=== PATIENT | female | born 1950 | race Caucasian/White ===

== ENCOUNTER 2017-02-23 18:46 | Inpatient (IN) | payer MEDICARE, MEDICAID ==
[2017-02-23] MEDS ORDERED: Levofloxacin 750 MG IVPREMIX(* 750 MG/150 ML BAG IVPB ONE (19:01)
[2017-02-23 19:29] LABS: Hematocrit 35 % (35-47); Hemoglobin 11.3 g/dl (12.0-16.0); Mean Corpuscular HGB Conc 33 g/dl (31-36); Mean Corpuscular Hemoglobin 30 pg (27-31); Mean Corpuscular Volume 90 fL (80-97); Mean Platelet Volume 9 um3 (7.4-10.4); Red Blood Count 3.82 10^6/ul (4.0-5.4); Red Cell Distribution Width 15 % (10.5-15); White Blood Count 7.4 10^3/ul (3.5-10.8)
[2017-02-23] MEDS: NS 0.9% 1000 ML* 3,000 ML IV ONE ×3 (19:39→20:52)
[2017-02-23 19:45] LABS: Albumin 3.4 g/dL (3.2-5.2); BUN/Creatinine Ratio 15.8 (8-20); C Reactive Protein 44.51 mg/L (< 5.00); Calcium 9.5 mg/dL (8.6-10.3); EGFR Non-African American 32.6 (>60); Globulin 2.9 g/dL (2-4); Potassium 3.8 mmol/L (3.5-5.0); Total Bilirubin 0.3 mg/dL (0.2-1.0); Total Protein 6.3 g/dL (6.4-8.9)
[2017-02-23 19:46] LABS: Troponin I 0.02 ng/mL (<0.04)
--- NOTE | 2017-02-23 20:06 | RAD ---
Indication: Fever, cough. Single frontal view of the chest performed at 1928 hours was reviewed. Comparison is made with previous exam dated July 17, 2016. No mediastinal shift is noted. Heart is of normal size and configuration. Lung whittaker appear clear. IMPRESSION: NO ACTIVE CARDIOPULMONARY DISEASE IS NOTED.
--- NOTE | 2017-02-23 20:10 | ED ---
Dolores Saravia Salem, scribed for Boris Pereira MD on 02/23/17 at 1928 . Neurological HPI - HPI Summary HPI Summary: Patient is a 66 y/o female who presents to the ED per EMS s/p CVA [employer]. She has a hx of strokes and of left-sided weakness. She was brought in from [facility] and they report she has been lethargic today. Pt is a level 5 Caveat. - History of Current Complaint Chief Complaint: EDGeneral Stated Complaint: AMS Time Seen by Provider: 02/23/17 19:17 Hx Obtained From: EMS Hx From Patient Unobtainable Due To: Other - Level 5 Caveat. Onset/Duration: Sudden Onset, Started hours ago Timing: Intermittent Episodes Lasting: Onset Severity: Moderate Current Severity: Moderate Seizure Severity: Moderate Pain Intensity: 0 Pain Scale Used: 0-10 Numeric Aggravating: Nothing Alleviating: Nothing - Allergy/Home Medications Allergies/Adverse Reactions: Allergies Allergy/AdvReac Type Severity Reaction Status Date / Time Metformin Allergy Unknown Verified 11/21/15 05:14 Reaction Details Oxycodone Allergy Unknown Verified 11/21/15 05:14 Reaction Details Propoxyphene Allergy Unknown Verified 11/21/15 05:14 Reaction Details Home Medications: Home Medications Cholecalciferol [Vitamin D3] 2,000 unit PO DAILY 02/23/17 [History Confirmed ] Pantoprazole TAB (NF) [Protonix TAB (NF)] 20 mg PO DAILY 02/23/17 [History Confirmed 02/23/17] PMH/Surg Hx/FS Hx/Imm Hx Endocrine/Hematology History: Reports: Hx Diabetes Cardiovascular History: Reports: Hx Hypercholesterolemia, Hx Hypertension, Other Cardiovascular Problems/Disorders - TIA/IDDM/HYPERCHOLESTEROLEMIA GI History: Reports: Other GI Disorders - gastric ulcer Musculoskeletal History: Denies: Hx Arthritis, Hx Osteoporosis Sensory History: Reports: Hx Contacts or Glasses Opthamlomology History: Reports: Hx Contacts or Glasses Neurological History: Reports: Hx CVA, Hx Transient Ischemic Attacks (TIA) Psychiatric History: Reports: Other Psychiatric Issues/Disorders - personality disorder, not otherwise specified Infectious Disease History: Unable to Obtain/Confirm Infectious Disease History: Denies: Traveled Outside the [place] in Last 30 Days - Family History Known Family History: Positive: Other - lung cancer - father, cva - mother - Social History Alcohol Use: None Hx Substance Use: No Substance Use Type: Reports: None Smoking Status (MU): Unknown if Ever Smoked Review of Systems Negative: Fever Positive: Other - Low blood pressure upon arrival. All Other Systems Reviewed And Are Negative: Yes - Comments Additional Review of Systems Comments: Level 5 Caveat. Physical Exam - Summary Physical Exam Summary: Level 5 Caveat. Triage Information Reviewed: Yes Vital Signs On Initial Exam: Initial Vitals BP 76/33 02/23/17 18:57 Vital Signs Reviewed: Yes Appearance: Positive: No Pain Distress, Thin - weak appeareing Skin: Positive: Skin Color Reflects Adequate Perfusion Head/Face: Positive: Normal Head/Face Inspection Eyes: Positive: OBDULIO ENT: Positive: Hearing grossly normal Neck: Positive: Supple Respiratory/Lung Sounds: Positive: Breath Sounds Present Cardiovascular: Positive: RRR Abdomen Description: Positive: Nontender, Soft Bowel Sounds: Positive: Present Musculoskeletal: Positive: Strength/ROM Intact Neurological: Positive: Sensory/Motor Intact Psychiatric: Positive: Affect/Mood Appropriate Diagnostics - Vital Signs Vital Signs Temp Pulse Resp BP Pulse Ox 02/23/17 19:18 83 21 99/58 98 02/23/17 19:06 78/35 02/23/17 19:05 97.5 F 83 22 78/35 98 02/23/17 19:00 23 79/36 02/23/17 18:57 76/33 - Laboratory Lab Results: Lab Results 02/23/17 Range/Units 19:02 POC Glucose (mg/dL) 62 L (74-106) mg/dL Result Diagrams: 02/23/17 19:15 02/23/17 19:15 Lab Statement: Any lab studies that have been ordered have been reviewed, and results considered in the medical decision making process. - Radiology CXR Radiology Interpretation Completed By: Radiologist - CXR IMPRESSION: NO ACTIVE CARDIOPULMONARY DISEASE IS NOTED. - EKG 2008 EKG Interpretation: Sinus rhythm @ 82 bpm. Course/Dx - Diagnoses Provider Diagnoses: Weakness - Physician Notifications Discussed Care of Patient With: Dr. Fuller (hospitalist) @ 1935. Will admit. Discharge - Discharge Plan Condition: Fair Disposition: ADMITTED TO [facility] documentation as recorded by the Dolores mittal Salem accurately reflects the service I personally performed and the decisions made by me, Boris Pereira MD.
[2017-02-23] MEDS ORDERED: Phenylephrine IV* 40 MCG/ML 10 ML SYRINGE ONE (20:17)
[2017-02-23] MEDS ORDERED: Phenylephrine INJ* 50 MG in NS 0.9% 250 ML* 245 ML IV ONE (20:21)
--- NOTE | 2017-02-23 20:23 | HP ---
H&P (Free Text) History and Physical: PCP: Michael Jones MD; [facility], [place] Date/Time of Evaluation: 02/23/20172014 CC: fever HPI: Mrs Cunningham is a 66YO obese female resident of [facility], [place] HX CVA with sequelae of L hemiplegia who was sent in for evaluation of fever 101F, AMS, & hypotension. Mrs Cunningham herself is quite lethargic and unable to provide much in the way of history. She does states she has been coughing up "a lot of sh!t" today, but cannot recall how she felt yesterday. She cannot recall any associated symptoms or other complaints at this time. In fact, she does not open her eyes through the entire exam and resists when attempting to manually examine her pupils. Vitals are notable for hypotension in the 70/30s without tachycardia and tachypnea in the low 20s, afebrile here. CBC is baseline. Chemistry reveals an KRISS with BUN/cre 25/1.5 (baseline 12/1.0), glucose of 61, & CRP of 44. CXR and ECG are benign. PMedHx CVA w/ L hemiplegia & dysphagia DM2 requiring insulin HTN HLD GERD personality disorder NOS Ambulatory Orders Acetaminophen TAB* [Tylenol TAB*] 1,000 mg PO BID PRN 11/21/15 Fenofibrate [Tricor] 145 mg PO DAILY 11/21/15 Gabapentin CAP(*) [Neurontin 100 mg CAP(*)] 200 mg PO BID 11/21/15 Insulin LISPRO* [HumaLOG*] 8 units SUBCUT AC 11/21/15 Magnesium Oxide TAB* [MagOx 400 TAB*] 1 tab PO DAILY 11/21/15 Metoclopramide TAB* [Reglan TAB*] 5 mg PO AC 11/21/15 Senna TAB* [Senokot TAB*] 2 tab PO BID #60 tab 11/27/15 Insulin GLARGINE(*) [Lantus(*)] 25 units SUBCUT 199907/17/16 Sucralfate TAB* [Carafate*] 1 gm PO BID 07/17/16 Cholecalciferol [Vitamin D3] 2,000 unit PO DAILY 02/23/17 Pantoprazole TAB (NF) [Protonix TAB (NF)] 20 mg PO DAILY 02/23/17 Allergies Metformin Allergy (Verified 11/21/15 05:14) Unknown Reaction Details Oxycodone Allergy (Verified 11/21/15 05:14) Unknown Reaction Details Propoxyphene Allergy (Verified 11/21/15 05:14) Unknown Reaction Details SocHx: resides at [facility], [place], otherwise unobtainable FamHx: unobtainable ROS: as above, otherwise reviewed and all were negative Constitutional: NAD, normally developed, obese white female vitals: Vital Signs Temp 36.3 C 02/23/17 19:23 Pulse 81 02/23/17 20:00 Resp 22 02/23/17 20:00 BP 76/36 02/23/17 20:00 Pulse Ox 99 02/23/17 20:00 Intake & Output 02/22/17 02/23/17 02/23/17 23:59 11:59 23:59 Weight 81.647 kg HEENM: atraumatic; sclera/conjunctiva: non-icteric/clear; hearing: clinically intact; oropharynx: clear, mucosa moist Neck: soft tissue: non-tender,no nuchal rigidity; thyroid: normal Pulmonary: clear to auscultation bilaterally, good aeration, no accessory muscle use CV: RR/RR, normal S1S2, no carotid bruit, no jugular venous distention, 2+ B DP/ PT, no edema Abdominal: soft, non-distended, non-tender, no rebound/guarding/rigidity, normoactive bowel sounds, no hepatosplenomegaly or masses, no costovertebral angle tenderness Musculoskeletal: general: grossly intact; gait: unable to ambulate 2nd acuity Integumental: normal appearance and texture of exposed skin Psychiatric orientation: somnolent, oriented to person only affect: somnolent mood: mostly cooperative, resists eye exam eye contact: absent content: minimal, limited to 3 words or less, doesn't answer open-ended questions memory: impaired responses: arouses with voice, does not open eyes insight: poor Testing: Lab Results 02/23/17 02/23/17 02/23/17 Range/Units 19:02 19:15 19:15 WBC 7.4 (3.5-10.8) 10^3/ul RBC 3.82 L (4.0-5.4) 10^6/ul Hgb 11.3 L (12.0-16.0) g/dl Hct 35 (35-47) % MCV 90 (80-97) fL MCH 30 (27-31) pg MCHC 33 (31-36) g/dl RDW 15 (10.5-15) % Plt Count 240 (150-450) 10^3/ul MPV 9 (7.4-10.4) um3 Neut % (Auto) 72.8 (38-83) % Lymph % (Auto) 15.8 L (25-47) % Kidder % (Auto) 10.1 H (1-9) % Eos % (Auto) 0.8 (0-6) % Baso % (Auto) 0.5 (0-2) % Absolute Neuts (auto) 5.4 (1.5-7.7) 10^3/ul Absolute Lymphs (auto) 1.2 (1.0-4.8) 10^3/ul Absolute Monos (auto) 0.7 (0-0.8) 10^3/ul Absolute Eos (auto) 0.1 (0-0.6) 10^3/ul Absolute Basos (auto) 0 (0-0.2) 10^3/ul Absolute Nucleated RBC 0 10^3/ul Nucleated RBC % 0 ESR Pending INR (Anticoag Therapy) (0.89-1.11) APTT (26.0-36.3) seconds Sodium 138 (133-145) mmol/L Potassium 3.8 (3.5-5.0) mmol/L Chloride 107 (101-111) mmol/L Carbon Dioxide 27 (22-32) mmol/L Anion Gap 4 (2-11) mmol/L BUN 25 H (6-24) mg/dL Creatinine 1.58 H (0.51-0.95) mg/dL Est GFR ( Amer) 42.0 (>60) Est GFR (Non-Af Amer) 32.6 (>60) BUN/Creatinine Ratio 15.8 (8-20) Glucose 61 L (70-100) mg/dL POC Glucose (mg/dL) 62 L (74-106) mg/dL Lactic Acid (0.5-2.0) mmol/L Calcium 9.5 (8.6-10.3) mg/dL Total Bilirubin 0.30 (0.2-1.0) mg/dL AST 13 (13-39) U/L ALT 8 (7-52) U/L Alkaline Phosphatase 25 L (34-104) U/L Total Creatine Kinase 41 (10-223) U/L Troponin I 0.02 (<0.04) ng/mL C-Reactive Protein 44.51 H (< 5.00) mg/L Total Protein 6.3 L (6.4-8.9) g/dL Albumin 3.4 (3.2-5.2) g/dL Globulin 2.9 (2-4) g/dL Albumin/Globulin Ratio 1.2 (1-3) 02/23/17 02/23/17 Range/Units 19:15 20:00 WBC (3.5-10.8) 10^3/ul RBC (4.0-5.4) 10^6/ul Hgb (12.0-16.0) g/dl Hct (35-47) % MCV (80-97) fL MCH (27-31) pg MCHC (31-36) g/dl RDW (10.5-15) % Plt Count (150-450) 10^3/ul MPV (7.4-10.4) um3 Neut % (Auto) (38-83) % Lymph % (Auto) (25-47) % Kid[place] % (Auto) (1-9) % Eos % (Auto) (0-6) % Baso % (Auto) (0-2) % Absolute Neuts (auto) (1.5-7.7) 10^3/ul Absolute Lymphs (auto) (1.0-4.8) 10^3/ul Absolute Monos (auto) (0-0.8) 10^3/ul Absolute Eos (auto) (0-0.6) 10^3/ul Absolute Basos (auto) (0-0.2) 10^3/ul Absolute Nucleated RBC 10^3/ul Nucleated RBC % ESR INR (Anticoag Therapy) 1.04 (0.89-1.11) APTT 33.5 (26.0-36.3) seconds Sodium (133-145) mmol/L Potassium (3.5-5.0) mmol/L Chloride (101-111) mmol/L Carbon Dioxide (22-32) mmol/L Anion Gap (2-11) mmol/L BUN (6-24) mg/dL Creatinine (0.51-0.95) mg/dL Est GFR ( Amer) (>60) Est GFR (Non-Af Amer) (>60) BUN/Creatinine Ratio (8-20) Glucose (70-100) mg/dL POC Glucose (mg/dL) (74-106) mg/dL Lactic Acid 1.2 (0.5-2.0) mmol/L Calcium (8.6-10.3) mg/dL Total Bilirubin (0.2-1.0) mg/dL AST (13-39) U/L ALT (7-52) U/L Alkaline Phosphatase (34-104) U/L Total Creatine Kinase (10-223) U/L Troponin I (<0.04) ng/mL C-Reactive Protein (< 5.00) mg/L Total Protein (6.4-8.9) g/dL Albumin (3.2-5.2) g/dL Globulin (2-4) g/dL Albumin/Globulin Ratio (1-3) ECG, personally reviewed: NSR rate 82, no ischemia CXR, personally reviewed: IMPRESSION: NO ACTIVE CARDIOPULMONARY DISEASE IS NOTED. Impression: 66F resident of [facility], [place] HX CVA/L hemiplegia/dysphagia, DM, & psychiatric disorder presenting with fever, lethargy, & hypotension consistent with septic shock of uncertain source DIAGNOSIS & PLAN Primary septic shock : ICU monitoring : supplemental oxygen : IVFs : pressors to maintain MAP >60 : IV levofloxacin : guaifenesin : blood, urine, & sputum CXs : urine Legionella & S pneumo antigens : check bedside swallow : supportive care KRISS : IVFs, trend renal FX : nava to gravity for accurate monitoring of renal function in critically-ill patient Secondary DM : continue current glargine QD and lispro AC, add correctional coverage : consistent carb diet : check A1c HX CVA w/ L-sided hemiplegia & dysphagia : no acute issues : MOLST states no feeding tube, therefore unless this changes no swallow eval indicated HTN : currently hypotensive, hold anti-hypertensives for now HLD, mixed : hold fenofibrate for now GERD : continue pantoprazole Admission Rational: inpatient ICU for critically ill patient requiring pressors , IV ABX, IVFs; inappropriate for outpatient setting DVTp: heparin SQ & SCDs Code Status: DNR/I, no feeding tube, trial of IVFs, use ABX HCP: Lay Sneed [phone]
[2017-02-23 20:50] LABS: Urine Bacteria 3+ (Absent); Urine Bilirubin Negative (Negative); Urine Glucose Negative (Negative); Urine Nitrite Negative (Negative)
[2017-02-23] MEDS ORDERED: Melatonin (NF) 3 MG TAB PO PRN (20:52)
[2017-02-23] MEDS ORDERED: Acetaminophen TAB* 325 MG PO PRN (20:52)
[2017-02-23] MEDS ORDERED: Albuterol 2.5 MG/3 ML NEB.SOL* (0.083%) INH PRN (20:52)
[2017-02-23] MEDS ORDERED: Ondansetron INJ* 2 MG/ML VIAL IV PRN (20:53)
[2017-02-23] MEDS ORDERED: Gabapentin CAP(*) 100 MG PO SCH (21:00)
[2017-02-23] MEDS ORDERED: Senna TAB PO SCH (21:00)
[2017-02-23] MEDS ORDERED: Docusate CAP* 100 MG PO SCH (21:00)
[2017-02-23] MEDS ORDERED: Sucralfate TAB* 1 GM PO SCH (21:00)
[2017-02-23] MEDS ORDERED: guaiFENesin ER TAB 600 MG PO SCH (21:00)
[2017-02-23 21:49] LABS: Erythrocyte Sed Rate 45 mm/Hr (0-40)
[2017-02-23] MEDS: Insulin LISPRO* 1 UNITS UNIT SUBCUT SCH (22:08)
[2017-02-24] MEDS: NS 0.9% 1000 ML* 1,000 ML IV SCH ×2 (00:22→07:53)
[2017-02-24] MEDS ORDERED: Acetaminophen SUPP* 650 MG SUPP PR PRN (02:53)
[2017-02-24] MEDS: Heparin VIAL(*) 5000 UNITS/ML VIAL (FIVE THOUSAND) SUBCUT SCH ×3 (06:01→22:28)
[2017-02-24 06:24] LABS: Hematocrit 30 % (35-47); Hemoglobin 9.7 g/dl (12.0-16.0); Mean Corpuscular HGB Conc 33 g/dl (31-36); Mean Corpuscular Hemoglobin 30 pg (27-31); Mean Corpuscular Volume 91 fL (80-97); Mean Platelet Volume 9 um3 (7.4-10.4); Red Blood Count 3.26 10^6/ul (4.0-5.4); Red Cell Distribution Width 15 % (10.5-15); White Blood Count 6.2 10^3/ul (3.5-10.8)
[2017-02-24 06:34] LABS: EGFR African American 58.2 (>60); EGFR Non-African American 45.2 (>60); Potassium 4.1 mmol/L (3.5-5.0)
[2017-02-24] MEDS ORDERED: Metoclopramide TAB* 10 MG PO SCH (07:30)
[2017-02-24] MEDS ORDERED: Insulin LISPRO* 1 UNITS UNIT SUBCUT SCH (07:30)
[2017-02-24] MEDS ORDERED: Dextrose 50% Syringe 50 ML* 25 GM/50 ML SYRINGE IV PUSH PRN (08:26)
--- NOTE | 2017-02-24 08:34 | PN ---
Subjective Date of Service: 02/24/17 Interval History: Patient not able to make her needs known. Objective Active Medications: Acetaminophen (Tylenol Supp*) 650 mg [place] Q6H PRN PRN Reason: FEVER/PAIN Albuterol (Ventolin 2.5 Mg/3 Ml Neb.Abbie*) 2.5 mg INH Q2H PRN PRN Reason: SOB/WHEEZING Dextrose (D50w Syringe 50 Ml*) 12.5 gm IV PUSH .FOR FS < 60 - SS PRN PRN Reason: FS < 60 Heparin Sodium (Porcine) (Heparin Vial(*)) 5,000 units SUBCUT Q8HR [facility] Last Admin: 02/24/17 06:01 Dose: 5,000 units Levofloxacin/Dextrose (Levaquin 750 Mg Ivpremix(*)) 750 mg in 150 mls @ 100 mls /hr IVPB Q48H [facility] Potassium Chloride/Dextrose (D5w 1/2 Ns Kcl 20 Meq 1000 Ml*) 1,000 mls @ 100 mls/hr IV PER RATE [facility] Insulin Human Lispro (Humalog*) 0 units SUBCUT ACHS MANPREET PRN Reason: Protocol Last Admin: 02/23/17 22:08 Dose: Not Given Insulin Human Lispro (Humalog*) 0 units SUBCUT ACHS MANPREET PRN Reason: Protocol Ondansetron HCl (Zofran Inj*) 4 mg IV Q6H PRN PRN Reason: NAUSEA Vital Signs 02/23/17 02/23/17 02/23/17 20:30 20:45 21:00 Temperature Pulse Rate 85 83 86 Respiratory 19 19 19 Rate Blood Pressure 82/52 85/44 92/50 (mmHg) O2 Sat by Pulse 100 100 100 Oximetry 02/23/17 02/23/17 02/23/17 21:07 21:10 21:14 Temperature 98.0 F 98.4 F Pulse Rate 83 Respiratory 19 Rate Blood Pressure 112/59 112/59 (mmHg) O2 Sat by Pulse 100 Oximetry 02/23/17 02/23/17 02/23/17 21:15 21:37 22:00 Temperature 98.4 F 98.3 F Pulse Rate 82 80 Respiratory 19 19 23 Rate Blood Pressure 101/45 (mmHg) O2 Sat by Pulse 100 100 Oximetry 02/23/17 02/23/17 02/23/17 22:24 22:30 23:00 Temperature 98.3 F 98.4 F 98.4 F Pulse Rate 82 80 81 Respiratory 21 21 22 Rate Blood Pressure 111/51 121/47 (mmHg) O2 Sat by Pulse 99 100 100 Oximetry 02/23/17 02/24/17 02/24/17 23:30 00:00 00:01 Temperature 98.6 F 98.8 F 98.8 F Pulse Rate 84 83 83 Respiratory 23 21 20 Rate Blood Pressure 125/52 110/50 (mmHg) O2 Sat by Pulse 99 99 99 Oximetry 02/24/17 02/24/17 02/24/17 00:30 01:00 01:30 Temperature 99.2 F 99.3 F Pulse Rate 84 84 Respiratory 19 27 Rate Blood Pressure 123/63 110/51 116/57 (mmHg) O2 Sat by Pulse 99 99 Oximetry 02/24/17 02/24/17 02/24/17 01:56 02:00 02:17 Temperature 99.4 F Pulse Rate 88 Respiratory 21 20 Rate Blood Pressure (mmHg) O2 Sat by Pulse 99 98 Oximetry 02/24/17 02/24/17 02/24/17 02:18 02:30 03:00 Temperature 99.6 F 99.7 F 99.9 F Pulse Rate 87 87 89 Respiratory 22 23 23 Rate Blood Pressure 130/53 126/50 132/54 (mmHg) O2 Sat by Pulse 99 99 95 Oximetry 02/24/17 02/24/17 02/24/17 03:30 04:00 04:30 Temperature 100.2 F 100.4 F 100.6 F Pulse Rate 88 91 89 Respiratory 23 25 26 Rate Blood Pressure 129/50 124/52 114/47 (mmHg) O2 Sat by Pulse 92 95 95 Oximetry 02/24/17 02/24/17 02/24/17 05:00 06:00 06:51 Temperature 100.8 F 101.2 F Pulse Rate 89 89 Respiratory 25 28 14 Rate Blood Pressure 113/53 124/47 (mmHg) O2 Sat by Pulse 95 97 Oximetry 02/24/17 02/24/17 07:00 07:59 Temperature 101.4 F 101.8 F Pulse Rate 93 Respiratory 25 18 Rate Blood Pressure 125/55 (mmHg) O2 Sat by Pulse 95 95 Oximetry Oxygen Devices in Use Now: Nasal Cannula Appearance: Head partly up in bed. Arouses easily. Very passive, neutral affect. Looks comfortable. Eyes: No Scleral Icterus Neck: NL Appearance and Movements; NL JVP, No Thyroid Enlargement, Masses Respiratory: Symmetrical Chest Expansion and Respiratory Effort, Clear to Auscultation, Clear to Percussion Cardiovascular: NL Sounds; No Murmurs; No JVD, RRR, No Edema, - Abdominal: NL Sounds; No Tenderness; No Distention, No Hepatosplenomegaly, - Extremities: No Edema, No Clubbing, Cyanosis, - Skin: No Rash or Ulcers, No Nodules or Sclerosis, - Neurological: - - Diminished memory. Speaks in complete sentences. Can count fingers. No tremor. Very passive. Result Diagrams: 02/24/17 06:01 02/24/17 06:01 Additional Lab and Data: Lab Results 02/23/17 Range/Units 19:02 POC Glucose (mg/dL) 62 L (74-106) mg/dL Microbiology and Other Data: Microbiology 02/23/17 20:34 Legionella Urinary Antigen - Final Urine Negative Legionella Streptococcus pneumoniae Ag Screen - Final Negative S. pneumo Antigen 02/23/17 20:40 Nasal Screen MRSA (PCR)(ERASMO) - Final Nasal Mrsa Negative Assess/Plan/Problems-Billing Assessment: - Patient Problems (1) Sepsis Current Visit: No Status: Acute Comment: Improved, suspect secondary to UTI. Blood cultures pending. Continue levofloxacin. (2) Swallowing difficulty Current Visit: Yes Status: Acute Code(s): R13.10 - DYSPHAGIA, UNSPECIFIED SNOMED Code(s): 39414342 Comment: Failed nursing swallow test. On thickened liquids and pureed food at SNF. SP swallow eval requested 02/24. (3) Diabetes Current Visit: No Status: Chronic Code(s): E11.9 - TYPE 2 DIABETES MELLITUS WITHOUT COMPLICATIONS SNOMED Code(s): 56383499 Comment: SSI only for now. All glucose levels <100 as of 516 AM. (4) History of CVA (cerebrovascular accident) Current Visit: No Status: Acute Code(s): Z86.73 - PRSNL HX OF TIA (TIA), AND CEREB INFRC W/O RESID DEFICITS SNOMED Code(s): 927371965 Comment: L hemiparesis, WC bound, actually spends almost all her day in bed. Apparently not on ASA as outpt, will try to verify. Visual deficit also.
--- NOTE | 2017-02-24 08:51 | PN ---
Progress Note - Progress Note Note: Time spent on patient care 45 minutes.
[2017-02-24] MEDS ORDERED: D5W 1/2 NS KCl 20 Meq 1000 ML* 1,000 ML IV SCH (09:00)
[2017-02-24] MEDS ORDERED: Pantoprazole TAB (NF) 20 MG TAB PO SCH (09:00)
[2017-02-24] MEDS ORDERED: Acetaminophen TAB* 325 MG PO PRN (09:50)
[2017-02-24] MEDS: D5W 1/2 NS KCl 20 Meq 1000 ML* 1,000 ML IV SCH (10:00)
[2017-02-24] MEDS: Metoclopramide TAB* 10 MG PO SCH ×2 (12:22→17:46)
[2017-02-24] MEDS: Insulin LISPRO* 1 UNITS UNIT SUBCUT SCH ×4 (13:32→20:52)
[2017-02-24] MEDS ORDERED: Insulin GLARGINE(*) 1 UNITS UNIT SUBCUT SCH (20:00)
[2017-02-24] MEDS: Sucralfate TAB* 1 GM PO SCH (20:51)
[2017-02-25] MEDS: D5W 1/2 NS KCl 20 Meq 1000 ML* 1,000 ML IV SCH (00:38)
[2017-02-25] MEDS ORDERED: Omeprazole CAP* 20 MG PO SCH (06:00)
[2017-02-25] MEDS: Heparin VIAL(*) 5000 UNITS/ML VIAL (FIVE THOUSAND) SUBCUT SCH (06:42)
[2017-02-25] MEDS ORDERED: Insulin GLARGINE(*) 1 UNITS UNIT SUBCUT SCH (08:00)
--- NOTE | 2017-02-25 08:21 | DCNOTE ---
Subjective Date of Service: 02/25/17 Interval History: No new c/o. Objective Active Medications: Dextrose (D50w Syringe 50 Ml*) 12.5 gm IV PUSH .FOR FS < 60 - SS PRN PRN Reason: FS < 60 Fenofibrate (Fenofibrate(Nf)) 130 mg PO DAILY [facility] Heparin Sodium (Porcine) (Heparin Vial(*)) 5,000 units SUBCUT Q8HR [facility] Last Admin: 02/25/17 06:42 Dose: 5,000 units Potassium Chloride/Dextrose (D5w 1/2 Ns Kcl 20 Meq 1000 Ml*) 1,000 mls @ 75 mls /hr IV PER RATE [facility] Last Admin: 02/25/17 00:38 Dose: 75 mls/hr Insulin Glargine (Lantus(*)) 15 units SUBCUT Q24H [facility] Insulin Human Lispro (Humalog*) 0 units SUBCUT ACHS [facility] PRN Reason: Protocol Last Admin: 02/24/17 20:52 Dose: 2 units Levofloxacin (Levaquin Tab*) 500 mg PO Q24H [facility] Magnesium Oxide (Magox 400 Tab*) 400 mg PO DAILY [facility] Metoclopramide HCl (Reglan Tab*) 5 mg PO AC [facility] Last Admin: 02/24/17 17:46 Dose: 5 mg Omeprazole (Prilosec Cap*) 20 mg PO 0600 [facility] Last Admin: 02/25/17 06:43 Dose: 20 mg Sucralfate (Carafate*) 1 gm PO BID [facility] Last Admin: 02/24/17 20:51 Dose: 1 gm Vital Signs 02/24/17 02/24/17 02/24/17 09:56 12:00 14:16 Temperature 99.1 F 99.6 F 99.5 F Pulse Rate 95 Respiratory 18 Rate Blood Pressure 107/45 (mmHg) O2 Sat by Pulse 95 Oximetry 02/24/17 02/24/17 02/24/17 15:15 16:00 19:53 Temperature 99.5 F 98.7 F Pulse Rate 96 93 Respiratory 16 16 Rate Blood Pressure 107/45 138/58 (mmHg) O2 Sat by Pulse 96 96 99 Oximetry 02/24/17 02/24/17 02/25/17 20:00 23:30 00:00 Temperature 98.8 F Pulse Rate 94 Respiratory 16 16 Rate Blood Pressure 121/49 (mmHg) O2 Sat by Pulse 96 95 95 Oximetry 02/25/17 03:48 Temperature 98.8 F Pulse Rate 88 Respiratory 18 Rate Blood Pressure 107/52 (mmHg) O2 Sat by Pulse 99 Oximetry Oxygen Devices in Use Now: None Appearance: Alert, head partly up in bed. Neutral affect. Looks comfortable. Eyes: No Scleral Icterus Neck: NL Appearance and Movements; NL JVP, No Thyroid Enlargement, Masses Cardiovascular: NL Sounds; No Murmurs; No JVD Abdominal: NL Sounds; No Tenderness; No Distention, No Hepatosplenomegaly Extremities: No Edema, No Clubbing, Cyanosis, - Skin: No Rash or Ulcers, No Nodules or Sclerosis, - Neurological: NL Sensation - L hemiparesis. Flat affect. No tremor. Good verbal skills. Result Diagrams: 02/24/17 06:01 02/24/17 06:01 Additional Lab and Data: Lab Results 02/23/17 Range/Units 19:02 POC Glucose (mg/dL) 62 L (74-106) mg/dL Microbiology and Other Data: Microbiology 02/23/17 20:34 Legionella Urinary Antigen - Final Urine Negative Legionella Streptococcus pneumoniae Ag Screen - Final Negative S. pneumo Antigen 02/23/17 20:40 Nasal Screen MRSA (PCR)(ERASMO) - Final Nasal Mrsa Negative Assess/Plan/Problems-Billing Assessment: - Patient Problems (1) Sepsis Current Visit: No Status: Acute Comment: Improved, suspect secondary to UTI. Blood cultures pending. Continue levofloxacin 4 more days as outpt. (2) Swallowing difficulty Current Visit: Yes Status: Acute Code(s): R13.10 - DYSPHAGIA, UNSPECIFIED SNOMED Code(s): 28477573 Comment: SP recommends nectar thick liquids, pureed solids. (3) Diabetes Current Visit: No Status: Chronic Code(s): E11.9 - TYPE 2 DIABETES MELLITUS WITHOUT COMPLICATIONS SNOMED Code(s): 01818635 Comment: SSI only for now. All glucose levels <100 as of 5/16 AM. (4) History of CVA (cerebrovascular accident) Current Visit: No Status: Acute Code(s): Z86.73 - PRSNL HX OF TIA (TIA), AND CEREB INFRC W/O RESID DEFICITS SNOMED Code(s): 237727302 Comment: L hemiparesis, WC bound, actually spends almost all her day in bed. Apparently not on ASA as outpt, will try to verify. Visual deficit also. (5) KRISS (acute kidney injury) Current Visit: No Status: Acute Code(s): N17.9 - ACUTE KIDNEY FAILURE, UNSPECIFIED SNOMED Code(s): 79477458 Comment: At her usual GFR 02/24/17. Status and Disposition: Discharge now. p [facility] staff.
[2017-02-25] MEDS: Insulin LISPRO* 1 UNITS UNIT SUBCUT SCH ×2 (08:37→11:48)
[2017-02-25] MEDS: Metoclopramide TAB* 10 MG PO SCH ×2 (08:38→11:48)
[2017-02-25] MEDS: Sucralfate TAB* 1 GM PO SCH (08:39)
[2017-02-25] MEDS ORDERED: Levofloxacin TAB* 500 MG PO SCH (09:00)
[2017-02-25] MEDS ORDERED: FENOFIBRATE 130 MG PO SCH (09:00)
[2017-02-25] MEDS ORDERED: Magnesium Oxide TAB* 400 MG PO SCH (09:00)
--- NOTE | 2017-02-25 09:52 | TRS ---
DATE OF ADMISSION: 02/23/2017. DATE OF TRANSFER: 02/25/2017. HISTORY: This 66-year-old woman was transferred from [facility] because of fever. Her temperature was 101. There was some hypotension remarked on as well. The patient stated she was coughing up a lot of stuff to the admitting physician. Blood pressure was about in the 30s diastolic and in the 70s systolic in the ED. The patient received intravenous fluids and Levofloxacin. She did quite well. She was afebrile the last 24 hours of her hospital stay. Her peak temperature here was 101.8. I note her white blood count was never elevated. It was checked twice here. She did have some acute kidney injury with a creatinine on admission of 1.58. The next day it was 1.19, which is in her usual range. Clinically, she returned rapidly to her baseline. It is not clear what the source of sepsis was. Urine was negative for MRSA, legionella, and pneumococcus. Urine culture final report was mixed олег, possible contamination. In view of the uncertainties of diagnosis and her comorbidities, I have decided to complete a seven day course of Levofloxacin. FINAL DIAGNOSES: 1. Sepsis. 2. Swallowing difficulty. 3. Diabetes. 4. History of cerebrovascular accident. 5. Acute kidney injury. DISCHARGE DIET: [place]-thick liquids, pureed solids, regular diet. DISCHARGE MEDICATIONS: 1. Levofloxacin 500 mg daily for 4 more days. 2. Metoclopramide 5 mg a.c. 3. Magnesium oxide 400 mg daily. 4. Fenofibrate 145 mg daily. 5. Acetaminophen 1000 mg b.i.d. prn. 6. Lispro insulin 8 units before meals. 7. Senna two tablets b.i.d. 8. Sucralfate 1 gm b.i.d. 9. Vitamin D3 2000 units daily. 10. Pantoprazole 20 mg daily. 11. Glargine insulin 15 units daily at 8:00 a.m. [id number]/[facility] #: [id number] MTDD
[2017-02-25 10:30] VITALS: BP 129/54
[2017-02-25] MEDS ORDERED: Levofloxacin 750 MG IVPREMIX(* 750 MG/150 ML BAG IVPB SCH (20:00)
== END 2017-02-25 12:05 | disposition home or self-care (01) | DRG 871 ==
LOC: ED 18:46 → ICU 20:25 → MED 02-24 14:15
PROVIDERS: ADMIT Hospitalist; ATTEND Internal Medicine
DX: A41.9 Sepsis, unspecified organism (principal); R65.21 Severe sepsis with septic shock; N17.9 Acute kidney failure, unspecified; N39.0 Urinary tract infection, site not specified; I69.354 Hemiplegia and hemiparesis following cerebral infarction affecting left non-dominant side; E11.9 Type 2 diabetes mellitus without complications; R13.10 Dysphagia, unspecified; I10 Essential (primary) hypertension; E78.5 Hyperlipidemia, unspecified; K21.9 Gastro-esophageal reflux disease without esophagitis; F60.9 Personality disorder, unspecified; I69.391 Dysphagia following cerebral infarction; Z79.1 Long term (current) use of non-steroidal anti-inflammatories (NSAID); Z79.4 Long term (current) use of insulin; Z79.899 Other long term (current) drug therapy; Z88.5 Allergy status to narcotic agent; Z88.8 Allergy status to other drugs, medicaments and biological substances
CPT/HCPCS: 36415; 71010; 80048; 80053; 81003; 81015; 82550; 83605; 84484; 85025; 85610; 85652; 85730; 86140; 87040; 87086; 87641; 87899; 93005; 94760; A9270-GY; J1644

== ENCOUNTER 2017-09-01 02:17 | Inpatient (IN) | payer MEDICAID, MEDICARE ==
[2017-09-01] MEDS ORDERED: Acetaminophen SUPP* 650 MG SUPP ONE (02:21)
[2017-09-01] MEDS ORDERED: Acetaminophen SUPP* 650 MG SUPP PR ONE (02:24)
[2017-09-01] MEDS ORDERED: NS 0.9% 1000 ML* 1,000 ML IV ONE ×2 (02:25→03:03)
[2017-09-01] MEDS ORDERED: Vancomycin(*) 1,000 MG in NS 0.9% 250 ML* 250 ML IVPB ONE (02:25)
[2017-09-01] MEDS ORDERED: Piperacillin/Tazobac ADVAN(*) 3.375 GM in NS 0.9% 100 ML* 100 ML IVPB ONE (02:25)
[2017-09-01] MEDS ORDERED: Albuterol/Ipratropium NEB.SOL* Albuterol 2.5 MG/Ipratropium 0.5 MG 3 ML INH ONE (02:28)
[2017-09-01 02:45] LABS: Hematocrit 43 % (35-47); Hemoglobin 13.6 g/dl (12.0-16.0); Mean Corpuscular HGB Conc 32 g/dl (31-36); Mean Corpuscular Hemoglobin 30 pg (27-31); Mean Corpuscular Volume 95 fL (80-97); Mean Platelet Volume 10 um3 (7.4-10.4); Red Cell Distribution Width 15 % (10.5-15); White Blood Count 31.8 10^3/ul (3.5-10.8)
[2017-09-01 02:46] LABS: Add Diff/Slide Review? Slide Review Added; Comments Flag Yes
[2017-09-01 02:58] LABS: Albumin 3.8 g/dL (3.2-5.2); BUN/Creatinine Ratio 39.1 (8-20); C Reactive Protein 9.7 mg/L (< 5.00); Calcium 9.7 mg/dL (8.6-10.3); EGFR African American 26.5 (>60); EGFR Non-African American 20.6 (>60); Globulin 3.3 g/dL (2-4); Potassium 4.4 mmol/L (3.5-5.0); Total Bilirubin 0.6 mg/dL (0.2-1.0); Total Protein 7.1 g/dL (6.4-8.9)
[2017-09-01 03:01] LABS: Troponin I 0.1 ng/mL (<0.04)
[2017-09-01] MEDS ORDERED: NS 0.9% 250 ML* 250 ML ONE (03:02)
[2017-09-01 03:04] LABS: Urine Bacteria 3+ (Absent); Urine Bilirubin Negative (Negative); Urine Glucose Negative (Negative); Urine Nitrite Negative (Negative)
[2017-09-01 03:14] LABS: EPAP 8; FIO2 100; IPAP 18
[2017-09-01 03:17] LABS: PCO2 Arterial 45 mmHg (35-45)
--- NOTE | 2017-09-01 04:19 | HP ---
H&P (Free Text) History and Physical: PCP: Elizabeth Fernandez MD; [facility] Date/Time of Evaluation: 09/01/2017 0400 CC: unresponsive, hypoxic HPI: Mrs Cunningham is a 66Y[facility] with sequelae of L hemiplegia who was sent in after being discovered unresponsive with an saO2 in the 60s that only improved to the 70s with 2L nasal canula. No other HPI is available as Mrs Cunningham is currently unable to participate even for current status information. Upon presentation to ED she was found to be in septic shock from a suspected UTI. As she is a DNR/I, intubation was not an option and so BiPap was initiated and will be continued with 1:1 monitoring. CXR is negative. Labs are notable for WBCs of 31k 85% neutrophils, serum sodium of 154, BUN/cre 92/2.35 (baseline 20/1.1), lactic acid 3.6, troponin 0.1, & urine consistent with infection. PMedHx CVA w/ L hemiplegia & dysphagia DM2 requiring insulin HTN HLD GERD personality disorder NOS Ambulatory Orders Nursing to reconcile. Acetaminophen TAB* [Tylenol TAB*] 1,000 mg PO BID PRN 11/21/15 Fenofibrate [Tricor] 145 mg PO DAILY 11/21/15 Insulin LISPRO* [HumaLOG*] 8 units SUBCUT AC 11/21/15 Magnesium Oxide TAB* [MagOx 400 TAB*] 1 tab PO DAILY 11/21/15 Metoclopramide TAB* [Reglan TAB*] 5 mg PO AC 11/21/15 Senna TAB* [Senokot TAB*] 2 tab PO BID #60 tab 11/27/15 Sucralfate TAB* [Carafate*] 1 gm PO BID 07/17/16 Cholecalciferol [Vitamin D3] 2,000 unit PO DAILY 02/23/17 Pantoprazole TAB (NF) [Protonix TAB (NF)] 20 mg PO DAILY 02/23/17 Insulin GLARGINE(*) [Lantus(*)] 15 units SUBCUT 0800 #0 02/25/17 Levofloxacin TAB* [Levaquin 500 Tab*] 500 mg PO Q24H tab 02/25/17 Allergies Metformin Allergy (Verified 11/21/15 05:14) Unknown Reaction Details Oxycodone Allergy (Verified 11/21/15 05:14) Unknown Reaction Details Propoxyphene Allergy (Verified 11/21/15 05:14) Unknown Reaction Details SocHx: resides at [facility], diet is regular nectar thick fluid & pureed solids ; otherwise unobtainable FamHx: unobtainable ROS: unobtainable Constitutional: NAD, normally developed, obese white female vitals: Vital Signs Temp 38.2 C 09/01/17 05:41 Pulse 93 09/01/17 05:41 Resp 21 09/01/17 05:41 BP 102/65 09/01/17 05:41 Pulse Ox 100 09/01/17 05:41 Intake & Output 08/31/17 08/31/17 09/01/17 11:59 23:59 11:59 Intake Total 2100 Balance 2100 Weight 86.183 kg Intake: IV Fluids 2099 HEENM: atraumatic; sclera/conjunctiva: non-icteric/clear; hearing: unable to assess; oropharynx: clear, mucosa tacky Neck: soft tissue: non-tender,no nuchal rigidity; thyroid: normal Pulmonary: clear to auscultation bilaterally, fair aeration, no accessory muscle use CV: RR/RR, normal S1S2, no carotid bruit, no jugular venous distention, 2+ B DP/ PT, no edema Abdominal: soft, non-distended, non-tender, no rebound/guarding/rigidity, normoactive bowel sounds, no hepatosplenomegaly or masses, no costovertebral angle tenderness Musculoskeletal: general: grossly intact; gait: unable to ambulate 2nd acuity Integumental: normal appearance and texture of exposed skin Psychiatric orientation: GCS 3 affect: somnolent mood: acquiescent eye contact: absent content: absent responses: absent insight: absent Testing: Lab Results 09/01/17 09/01/17 09/01/17 Range/Units 02:30 02:30 02:30 WBC (3.5-10.8) 10^3/ul RBC (4.0-5.4) 10^6/ul Hgb (12.0-16.0) g/dl Hct (35-47) % MCV (80-97) fL MCH (27-31) pg MCHC (31-36) g/dl RDW (10.5-15) % Plt Count (150-450) 10^3/ul MPV (7.4-10.4) um3 Neut % (Auto) (38-83) % Lymph % (Auto) (25-47) % Stokes % (Auto) (1-9) % Eos % (Auto) (0-6) % Baso % (Auto) (0-2) % Absolute Neuts (auto) (1.5-7.7) 10^3/ul Absolute Lymphs (auto) (1.0-4.8) 10^3/ul Absolute Monos (auto) (0-0.8) 10^3/ul Absolute Eos (auto) (0-0.6) 10^3/ul Absolute Basos (auto) (0-0.2) 10^3/ul Absolute Nucleated RBC 10^3/ul Nucleated RBC % INR (Anticoag Therapy) 0.96 (0.89-1.11) APTT 32.8 (26.0-36.3) seconds Patient Temperature ABG pH (7.35-7.45) ABG pH (Temp Correct) ABG pCO2 (35-45) mmHg ABG pCO2 (Temp Corrct ABG pO2 (80-100) mmHg ABG pO2 (Temp Correct ABG HCO3 (19-31) mmol/L ABG O2 Saturation (95-98) % ABG Base Excess (-2.0-2.0) Respiration Rate O2 Delivery Device Ventilator Type Vent Mode FiO2 Inspiratory Time PEEP Pressure Support Pressure Control EPAP IPAP BiPAP Sodium 151 H (133-145) mmol/L Potassium 4.4 (3.5-5.0) mmol/L Chloride 108 (101-111) mmol/L Carbon Dioxide 29 (22-32) mmol/L Anion Gap 14 H (2-11) mmol/L BUN 92 H (6-24) mg/dL Creatinine 2.35 H (0.51-0.95) mg/dL Est GFR ( Amer) 26.5 (>60) Est GFR (Non-Af Amer) 20.6 (>60) BUN/Creatinine Ratio 39.1 H (8-20) Glucose 404 H (70-100) mg/dL Lactic Acid (0.5-2.0) mmol/L Calcium 9.7 (8.6-10.3) mg/dL Total Bilirubin 0.60 (0.2-1.0) mg/dL AST 28 (13-39) U/L ALT 24 (7-52) U/L Alkaline Phosphatase 42 (34-104) U/L Troponin I 0.10 H* (<0.04) ng/mL C-Reactive Protein 9.70 H (< 5.00) mg/L B-Natriuretic Peptide 64 ( - 100) pg/mL Total Protein 7.1 (6.4-8.9) g/dL Albumin 3.8 (3.2-5.2) g/dL Globulin 3.3 (2-4) g/dL Albumin/Globulin Ratio 1.2 (1-3) Urine Color Urine Appearance Urine pH (5-9) Ur Specific [place] (1.010-1.030) Urine Protein (Negative) Urine Ketones (Negative) Urine Blood (Negative) Urine Nitrate (Negative) Urine Bilirubin (Negative) Urine Urobilinogen (Negative) Ur Leukocyte Esterase (Negative) Urine WBC (Auto) (Absent) Urine RBC (Auto) (Absent) Ur Squamous Epith Cells (Absent) Urine Bacteria (Absent) Urine Glucose (Negative) Urine Ascorbic Acid (Negative) Influenza A (Rapid) (Negative) Influenza B (Rapid) (Negative) 09/01/17 09/01/17 09/01/17 Range/Units 02:30 02:30 02:48 WBC 31.8 H (3.5-10.8) 10^3/ul RBC 4.50 (4.0-5.4) 10^6/ul Hgb 13.6 (12.0-16.0) g/dl Hct 43 (35-47) % MCV 95 (80-97) fL MCH 30 (27-31) pg MCHC 32 (31-36) g/dl RDW 15 (10.5-15) % Plt Count 410 (150-450) 10^3/ul MPV 10 (7.4-10.4) um3 Neut % (Auto) 85.4 H (38-83) % Lymph % (Auto) 8.8 L (25-47) % Stokes % (Auto) 5.1 (1-9) % Eos % (Auto) 0.1 (0-6) % Baso % (Auto) 0.6 (0-2) % Absolute Neuts (auto) 27.2 H (1.5-7.7) 10^3/ul Absolute Lymphs (auto) 2.8 (1.0-4.8) 10^3/ul Absolute Monos (auto) 1.6 H (0-0.8) 10^3/ul Absolute Eos (auto) 0 (0-0.6) 10^3/ul Absolute Basos (auto) 0.2 (0-0.2) 10^3/ul Absolute Nucleated RBC 0.03 10^3/ul Nucleated RBC % 0.1 INR (Anticoag Therapy) (0.89-1.11) APTT (26.0-36.3) seconds Patient Temperature ABG pH (7.35-7.45) ABG pH (Temp Correct) ABG pCO2 (35-45) mmHg ABG pCO2 (Temp Corrct ABG pO2 (80-100) mmHg ABG pO2 (Temp Correct ABG HCO3 (19-31) mmol/L ABG O2 Saturation (95-98) % ABG Base Excess (-2.0-2.0) Respiration Rate O2 Delivery Device Ventilator Type Vent Mode FiO2 Inspiratory Time PEEP Pressure Support Pressure Control EPAP IPAP BiPAP Sodium (133-145) mmol/L Potassium (3.5-5.0) mmol/L Chloride (101-111) mmol/L Carbon Dioxide (22-32) mmol/L Anion Gap (2-11) mmol/L BUN (6-24) mg/dL Creatinine (0.51-0.95) mg/dL Est GFR ( Amer) (>60) Est GFR (Non-Af Amer) (>60) BUN/Creatinine Ratio (8-20) Glucose (70-100) mg/dL Lactic Acid 3.6 H* (0.5-2.0) mmol/L Calcium (8.6-10.3) mg/dL Total Bilirubin (0.2-1.0) mg/dL AST (13-39) U/L ALT (7-52) U/L Alkaline Phosphatase (34-104) U/L Troponin I (<0.04) ng/mL C-Reactive Protein (< 5.00) mg/L B-Natriuretic Peptide ( - 100) pg/mL Total Protein (6.4-8.9) g/dL Albumin (3.2-5.2) g/dL Globulin (2-4) g/dL Albumin/Globulin Ratio (1-3) Urine Color Delia Urine Appearance Turbid Urine pH 5.0 (5-9) Ur Specific [place] 1.017 (1.010-1.030) Urine Protein 1+(30 mg/dl) H (Negative) Urine Ketones Negative (Negative) Urine Blood Negative (Negative) Urine Nitrate Negative (Negative) Urine Bilirubin Negative (Negative) Urine Urobilinogen Negative (Negative) Ur Leukocyte Esterase 2+ H (Negative) Urine WBC (Auto) 3+(>20/hpf) H (Absent) Urine RBC (Auto) Trace(0-2/hpf) (Absent) Ur Squamous Epith Cells Present H (Absent) Urine Bacteria 3+ H (Absent) Urine Glucose Negative (Negative) Urine Ascorbic Acid * H (Negative) Influenza A (Rapid) (Negative) Influenza B (Rapid) (Negative) 09/01/17 09/01/17 Range/Units 03:00 03:08 WBC (3.5-10.8) 10^3/ul RBC (4.0-5.4) 10^6/ul Hgb (12.0-16.0) g/dl Hct (35-47) % MCV (80-97) fL MCH (27-31) pg MCHC (31-36) g/dl RDW (10.5-15) % Plt Count (150-450) 10^3/ul MPV (7.4-10.4) um3 Neut % (Auto) (38-83) % Lymph % (Auto) (25-47) % Stokes % (Auto) (1-9) % Eos % (Auto) (0-6) % Baso % (Auto) (0-2) % Absolute Neuts (auto) (1.5-7.7) 10^3/ul Absolute Lymphs (auto) (1.0-4.8) 10^3/ul Absolute Monos (auto) (0-0.8) 10^3/ul Absolute Eos (auto) (0-0.6) 10^3/ul Absolute Basos (auto) (0-0.2) 10^3/ul Absolute Nucleated RBC 10^3/ul Nucleated RBC % INR (Anticoag Therapy) (0.89-1.11) APTT (26.0-36.3) seconds Patient Temperature Not Reportable ABG pH 7.34 L (7.35-7.45) ABG pH (Temp Correct) Not Reportable ABG pCO2 45 (35-45) mmHg ABG pCO2 (Temp Corrct Not Reportable ABG pO2 117 H (80-100) mmHg ABG pO2 (Temp Correct Not Reportable ABG HCO3 23.6 (19-31) mmol/L ABG O2 Saturation 99.9 H (95-98) % ABG Base Excess -1.7 (-2.0-2.0) Respiration Rate Not Reportable O2 Delivery Device bipap Ventilator Type Not Reportable Vent Mode Not Reportable FiO2 100 Inspiratory Time Not Reportable PEEP Not Reportable Pressure Support Not Reportable Pressure Control Not Reportable EPAP 8 IPAP 18 BiPAP Not Reportable Sodium (133-145) mmol/L Potassium (3.5-5.0) mmol/L Chloride (101-111) mmol/L Carbon Dioxide (22-32) mmol/L Anion Gap (2-11) mmol/L BUN (6-24) mg/dL Creatinine (0.51-0.95) mg/dL Est GFR ( Amer) (>60) Est GFR (Non-Af Amer) (>60) BUN/Creatinine Ratio (8-20) Glucose (70-100) mg/dL Lactic Acid (0.5-2.0) mmol/L Calcium (8.6-10.3) mg/dL Total Bilirubin (0.2-1.0) mg/dL AST (13-39) U/L ALT (7-52) U/L Alkaline Phosphatase (34-104) U/L Troponin I (<0.04) ng/mL C-Reactive Protein (< 5.00) mg/L B-Natriuretic Peptide ( - 100) pg/mL Total Protein (6.4-8.9) g/dL Albumin (3.2-5.2) g/dL Globulin (2-4) g/dL Albumin/Globulin Ratio (1-3) Urine Color Urine Appearance Urine pH (5-9) Ur Specific [place] (1.010-1.030) Urine Protein (Negative) Urine Ketones (Negative) Urine Blood (Negative) Urine Nitrate (Negative) Urine Bilirubin (Negative) Urine Urobilinogen (Negative) Ur Leukocyte Esterase (Negative) Urine WBC (Auto) (Absent) Urine RBC (Auto) (Absent) Ur Squamous Epith Cells (Absent) Urine Bacteria (Absent) Urine Glucose (Negative) Urine Ascorbic Acid (Negative) Influenza A (Rapid) Negative (Negative) Influenza B (Rapid) Negative (Negative) ECG, personally reviewed: sinus RBBB rate 136, no overt ischemia CXR, personally reviewed: no acute process Impression: 66F resident of [facility] HX CVA/L hemiplegia/dysphagia, DM, & psychiatric disorder presenting with fever, lethargy, & hypotension consistent with septic shock of uncertain source, suspect UTI DIAGNOSIS & PLAN Primary hypoxic respiratory failure : DNR/I : BiPap w/ 1:1 monitoring : Peggy Gonzalez MD hat maker notified septic shock, uncertain etiology, suspect UTI vs occult aspiration : ICU monitoring : IV vancomycin & cefepime; given single dose of piperacillin/tazobactam in ED : IVFs @ 30cc/kg bolus followed by 125cc/hr : pressors, if needed, to maintain MAP >60 : blood, urine, & sputum CXs : supportive care KRISS : IVFs, trend renal FX : nava to gravity for accurate monitoring of renal function in critically-ill patient Secondary DM : continue current glargine QD : correctional lispro : NPO : check A1c HX CVA w/ L-sided hemiplegia & dysphagia : no acute issues : MOLST states no feeding tube, therefore unless this changes no swallow eval indicated HTN : currently hypotensive, hold anti-hypertensives for now HLD, mixed : hold fenofibrate for now GERD : famotidine IV BID Admission Rational: inpatient ICU for critically ill patient requiring IV ABX, IVFs; inappropriate for outpatient setting DVTp: heparin SQ & SCDs Code Status: DNR/I, no feeding tube, trial of IVFs, use ABX; MOLST updated HCP: Lay Sneed [phone] Critical Care Time: 90 minutes with >50% spent at the bedside
[2017-09-01] MEDS ORDERED: Ondansetron INJ* 2 MG/ML VIAL IV PRN (04:24)
[2017-09-01] MEDS ORDERED: Acetaminophen SUPP* 650 MG SUPP PR PRN (04:24)
[2017-09-01] MEDS ORDERED: Albuterol 2.5 MG/3 ML NEB.SOL* (0.083%) INH PRN (04:24)
[2017-09-01] MEDS ORDERED: NS 0.9% 1000 ML* 1,000 ML IV SCH (04:30)
[2017-09-01] MEDS ORDERED: NS 0.9% 1000 ML* 500 ML IV ONE (04:30)
--- NOTE | 2017-09-01 04:38 | ED ---
Eli Saravia Thomas, scribed for Brittanie Mendez MD on 09/01/17 at 0231 . Sepsis HPI - HPI Summary HPI Summary: The patient is a 66 y/o F BIBA from [facility] after she was found unresponsive. She was satting in the 60s. She is DNR/DNI. Her temperature measured rectally is 103. LEVEL 5 CAVEAT: HPI LIMITED BY UNRESPONSIVE PATIENT - History of Current Complaint Time Seen by Provider: 09/01/17 02:21 Stated Complaint: RESP DISTRESS/UNRESPONSIVE Hx Obtained From: EMS Hx From Patient Unobtainable Due To: Other - Unresponsive Onset/Duration: Still Present Timing: Constant - Additional Pertinent History Primary Care Physician: [id number] - Allergy/Home Medications Allergies/Adverse Reactions: Allergies Allergy/AdvReac Type Severity Reaction Status Date / Time Metformin Allergy Unknown Verified 11/21/15 05:14 Reaction Details Oxycodone Allergy Unknown Verified 11/21/15 05:14 Reaction Details Propoxyphene Allergy Unknown Verified 11/21/15 05:14 Reaction Details PMH/Surg Hx/FS Hx/Imm Hx Previously Healthy: No - LEVEL 5 CAVEAT: PMH LIMITED BY UNRESPONSIVE PATIENT Endocrine/Hematology History: Reports: Hx Diabetes Cardiovascular History: Reports: Hx Hypercholesterolemia, Hx Hypotension, Hx Hypertension, Other Cardiovascular Problems/Disorders - TIA/IDDM/ HYPERCHOLESTEROLEMIA GI History: Reports: Hx Gastroesophageal Reflux Disease, Hx Ulcer, Other GI Disorders - gastric ulcer Musculoskeletal History: Denies: Hx Arthritis, Hx Osteoporosis Sensory History: Reports: Hx Contacts or Glasses Denies: Hx Hearing Aid Opthamlomology History: Reports: Hx Contacts or Glasses Neurological History: Reports: Hx CVA, Hx Transient Ischemic Attacks (TIA) Psychiatric History: Reports: Other Psychiatric Issues/Disorders - personality disorder, not otherwise specified - Family History Known Family History: Positive: Other - lung cancer - father, cva - mother Family History: FHx no obtainable due to AMS - Social History Alcohol Use: None Hx Substance Use: No Substance Use Type: Reports: None Smoking Status (MU): Unknown if Ever Smoked Review of Systems - ROS Summary Review of Systems Summary: LEVEL 5 CAVEAT: ROS LIMITED BY UNRESPONSIVE PATIENT Negative: Fever Neurological: Other - Unresponsive All Other Systems Reviewed And Are Negative: No Physical Exam - Summary Physical Exam Summary: VITAL SIGNS: Reviewed. GENERAL: Patient is a well-developed and nourished female who is unresponsive. Patient is not in any acute respiratory distress. HEAD AND FACE: No signs of trauma. No ecchymosis, hematomas or skull depressions. No sinus tenderness. EYES: PERRLA, EOMI x 2, No injected conjunctiva, no nystagmus. EARS: Hearing grossly intact. Ear canals and tympanic membranes are within normal limits. MOUTH: Oropharynx within normal limits. NECK: Supple, trachea is midline, no adenopathy, no JVD, no carotid bruit, no c- spine tenderness, neck with full ROM. CHEST: Symmetric, no tenderness at palpation LUNGS: Decreased breath sounds bilaterally. CVS: Regular rate and rhythm, S1 and S2 present, no murmurs or gallops appreciated. She is hypotensive ABDOMEN: Soft, non-tender. No signs of distention. No rebound no guarding, and no masses palpated. Bowel sounds are normal. EXTREMITIES: FROM in all major joints, no edema, no cyanosis or clubbing. NEURO: Alert and oriented x 3. No acute neurological deficits. She is lethargic. There are no focal findings. SKIN: Warm and diaphoretic. Triage Information Reviewed: Yes Vital Signs Reviewed: Yes Diagnostics - Laboratory Result Diagrams: 09/01/17 02:30 09/01/17 02:30 Lab Statement: Any lab studies that have been ordered have been reviewed, and results considered in the medical decision making process. - Radiology CXR Xray Interpretation: No Acute Changes - No acute disease. Radiology Interpretation Completed By: ED Physician - EKG 02:22 Cardiac Rate: Tachycardia EKG Rhythm: Sinus Tachycardia EKG Interpretation: [address] depressions, most likely rate-related. Course/Dx - Course Assessment/Plan: The patient is a 66 y/o F BIBA from [facility] after she was found unresponsive. She was satting in the 60s. She is DNR/DNI. Her temperature measured rectally is 103. Acetaminophen, DuoNeb, IV fluids, Vancomycin, and Zosyn were given. EKG and CXR were obtained. The patient is diagnosed with urosepsis. She was admitted by Dr. Fuller. - Differential Dx/Clinical Impression Provider Diagnosis: UROSEPSIS - Provider Notifications Discussed Care Of Patient With: Cheikh Fuller Time Discussed With Above Provider: 03:20 Instructed by Provider To: Admit As Inpatient Discharge - Discharge Plan Condition: Critical Disposition: ADMITTED [facility] Referrals: Yony Fernandez MD [Primary Care Provider] - The documentation as recorded by the Eli mittal Thomas accurately reflects the service I personally performed and the decisions made by me, Brittanie Mendez MD.
[2017-09-01] MEDS ORDERED: Vancomycin per Pharmacy* NOTE FOLLOW UP SCH (05:00)
[2017-09-01] MEDS ORDERED: Omeprazole CAP* 20 MG PO SCH (06:00)
[2017-09-01 06:25] LABS: BUN/Creatinine Ratio 45.3 (8-20); Calcium 8.2 mg/dL (8.6-10.3); EGFR African American 31.4 (>60); EGFR Non-African American 24.4 (>60); Potassium 3.4 mmol/L (3.5-5.0)
[2017-09-01 07:01] LABS: Troponin I 0.46 ng/mL (<0.04)
[2017-09-01] MEDS ORDERED: Magnesium Sulfate 2 GM IV* 2 GM/50 ML BAG ONE (07:22)
--- NOTE | 2017-09-01 07:41 | RAD ---
HISTORY: Shortness of breath COMPARISONS: February 23, 2017 VIEWS: 1: frontal portable view of the chest at 2:35 AM FINDINGS: LINES AND TUBES: None. CARDIOMEDIASTINAL SILHOUETTE: The cardiomediastinal silhouette is normal for portable technique. PLEURA: The costophrenic angles are sharp. No pleural abnormalities are noted. LUNG PARENCHYMA: There is patchy alveolar opacification of the left lung base ABDOMEN: The upper abdomen is clear. There is no subphrenic gas. BONES AND SOFT TISSUES: No bone or soft tissue abnormalities are noted. IMPRESSION: PATCHY LEFT BASILAR ATELECTASIS VERSUS CONSOLIDATION. RECOMMEND FOLLOW-UP UNTIL RESOLUTION TO EXCLUDE UNDERLYING PULMONARY PARENCHYMAL PATHOLOGY.
[2017-09-01] MEDS ORDERED: Insulin LISPRO* 1 UNITS UNIT SUBCUT ONE (08:00)
[2017-09-01 08:14] LABS: Magnesium 3.1 mg/dL (1.9-2.7)
[2017-09-01] MEDS: Insulin LISPRO* 1 UNITS UNIT SUBCUT SCH ×5 (08:34→22:15)
[2017-09-01] MEDS ORDERED: Famotidine IV * 20 MG in NS 0.9% 100 ML* 100 ML IVPB SCH (09:00)
[2017-09-01] MEDS ORDERED: Docusate CAP* 100 MG PO SCH (09:00)
[2017-09-01] MEDS: Famotidine IV* 10 MG/ML 2 ML (20 mg) IV SCH ×2 (09:34→22:15)
[2017-09-01] MEDS ORDERED: Cefepime(*) 1 GM in NS 0.9% 50 ML* 50 ML IVPB SCH (10:00)
[2017-09-01] MEDS ORDERED: Piperacillin/Tazobac ADVAN(*) 3.375 GM in NS 0.9% 100 ML* 100 ML IVPB SCH (10:00)
[2017-09-01] MEDS ORDERED: Cefepime 1 GM in Dextrose(*) 1 GM/50 ML BAG IV SCH (11:00)
[2017-09-01] MEDS: Vancomycin(*) 1,000 MG in NS 0.9% 250 ML* 250 ML IVPB SCH (17:21)
--- NOTE | 2017-09-01 18:20 | PN ---
Critical Care Services: Patient admitted last night with possible septic shock - most likely Dx is dehydration and ? UTI. Vital Signs: Temp Pulse Resp BP SpO2 FiO2 100.9 F 124 22 107/66 94 90 NOTE: Patient has been in and out of AFib Physical Exam: Gen: Unresponsive. HEENT: oropharynx clear Lungs: Clear Cardiac: Irreg rhythm Abdomen: Not distended Extremities: No cyanosis or edema. Fluid Balance (Past 24 Hours): Urine output about one liter today (as of 6 PM). Labs: 09/01/17 09/01/17 09/01/17 05:57 05:57 09:01 Sodium 152 Potassium 3.4 Chloride 116 Carbon Dioxide 24 Anion Gap 12 BUN 92 Creatinine 2.03 BUN/Creatinine Ratio 45.3 Glucose 410 POC Glucose (mg/dL) 364 Lactic Acid 2.9 Calcium 8.2 Magnesium 3.1 Studies: None Nutrition: NPO Impression: 1. Dehydration due to poorly controlled diabetes. 2. Sepsis possible, but not sure of origin. Plan: Continue hydration and antibiotics. Prognosis guarded. Critical Care Time: 40 minutes
[2017-09-01] MEDS ORDERED: Dextrose 50% Syringe 50 ML* 25 GM/50 ML SYRINGE IV PUSH PRN (19:42)
[2017-09-01] MEDS ORDERED: Insulin GLARGINE(*) 1 UNITS UNIT SUBCUT SCH (21:00)
[2017-09-02] MEDS: Insulin LISPRO* 1 UNITS UNIT SUBCUT SCH ×6 (01:45→22:05)
[2017-09-02] MEDS: Vancomycin(*) 1,000 MG in NS 0.9% 250 ML* 250 ML IVPB SCH (04:58)
[2017-09-02 05:29] LABS: Hematocrit 35 % (35-47); Hemoglobin 11.1 g/dl (12.0-16.0); Mean Corpuscular HGB Conc 32 g/dl (31-36); Mean Corpuscular Hemoglobin 30 pg (27-31); Mean Corpuscular Volume 95 fL (80-97); Mean Platelet Volume 10 um3 (7.4-10.4); Red Blood Count 3.66 10^6/ul (4.0-5.4); Red Cell Distribution Width 15 % (10.5-15); White Blood Count 15.4 10^3/ul (3.5-10.8)
[2017-09-02 05:43] LABS: BUN/Creatinine Ratio 54.2 (8-20); Calcium 8.5 mg/dL (8.6-10.3); EGFR African American 52.1 (>60); EGFR Non-African American 40.5 (>60); Magnesium 3.2 mg/dL (1.9-2.7)
[2017-09-02] MEDS: Heparin VIAL(*) 5000 UNITS/ML VIAL (FIVE THOUSAND) SUBCUT SCH ×3 (06:28→22:05)
--- NOTE | 2017-09-02 09:58 | PN ---
Critical Care Services: Patient is clinically stable - no evidence of a treatable infection - renal function improving with hydration. Vital Signs: Temp Pulse Resp BP SpO2 FiO2 100.2 F 81 20 115/69 97 90 Physical Exam: Gen: Somnolent but arousable, and answers questions appropriately. Lungs: Occasional rhonchi. No wheezes or crackles. Extremities: No cyanosis or edema. Fluid Balance (Past 24 Hours): 09/01/17 09/02/17 06:59 06:59 Intake Total 1087 2730 Output Total 50 1025 Balance +1037 +1705 Weight 161 lb 164 lb Intake: IV Fluids 1087 2111 LR 1954 NS (0.9%) 87 157 IVPB 514 ABX - CEFEPIME 100 LR 255 NS (0.9%) 159 Medicated IV 100 GEN - Magnesium 100 Oral 5 Output: Frazier 50 1025 Other: Estimated Void Large Date of Last Bowel 09/01/17 Movement # Bowel Movements 1 Estimated Stool Amount Small Labs: 09/01/17 09/02/17 09/02/17 22:04 01:36 05:12 Sodium 155 Potassium 3.0 Chloride 121 Carbon Dioxide 28 Anion Gap 6 BUN 71 H Creatinine 1.31 POC Glucose (mg/dL) 59 L 144 H Glucose 153 H Calcium 8.5 L Magnesium 3.2 09/02/17 05:12 WBC 15.4 H Hgb 11.1 L Hct 35 MCV 95 Plt Count 164 Studies: None Nutrition: Will start oral feeding today. Impression: 1. Dehydration resolving. 2. Persistent low-grade fever, but no evidence of a treatable infection. However , urine specimen was tainted, so a new specimen is needed. Plan: 1. Continue IV hydration. 2. Start oral feeding 3. Resend urine specimen 4. Discontinue antibiotics for now. 5. Transfer patient to floor - ? consider hospice care.
[2017-09-02] MEDS: Famotidine IV* 10 MG/ML 2 ML (20 mg) IV SCH ×2 (10:41→20:30)
[2017-09-02] MEDS: KCL 20 MEQ/100 ML IVPREMIX* 20 MEQ/100 ML BAG IV SCH ×2 (10:41→14:28)
[2017-09-02] MEDS: Aspirin EC Low Dose* 81 MG TAB.EC PO SCH (11:15)
[2017-09-02] MEDS ORDERED: Vancomycin Trough Check NOTE FOLLOW UP ONE (15:30)
[2017-09-03] MEDS: Insulin LISPRO* 1 UNITS UNIT SUBCUT SCH ×6 (02:39→21:42)
[2017-09-03] MEDS: Heparin VIAL(*) 5000 UNITS/ML VIAL (FIVE THOUSAND) SUBCUT SCH ×3 (06:11→21:42)
[2017-09-03 07:13] LABS: Hematocrit 32 % (35-47); Hemoglobin 10.3 g/dl (12.0-16.0); Mean Corpuscular HGB Conc 32 g/dl (31-36); Mean Corpuscular Hemoglobin 30 pg (27-31); Mean Corpuscular Volume 94 fL (80-97); Mean Platelet Volume 11 um3 (7.4-10.4); Red Blood Count 3.42 10^6/ul (4.0-5.4); Red Cell Distribution Width 15 % (10.5-15); White Blood Count 15.1 10^3/ul (3.5-10.8)
[2017-09-03 07:23] LABS: BUN/Creatinine Ratio 43.6 (8-20); Blood Urea Nitrogen 48 mg/dL (6-24); CO2 Carbon Dioxide 27 mmol/L (22-32); Calcium 9.1 mg/dL (8.6-10.3); EGFR African American 63.7 (>60); EGFR Non-African American 49.5 (>60); Glucose 114 mg/dL (70-100)
[2017-09-03 07:28] LABS: Anion Gap 6 mmol/L (2-11); Chloride 122 mmol/L (101-111); Sodium 155 mmol/L (133-145)
[2017-09-03] MEDS ORDERED: cefTRIAXone VIAL(*) 1,000 MG in NS 0.9% 50 ML* 50 ML IVPB SCH (08:00)
[2017-09-03] MEDS: Famotidine IV* 10 MG/ML 2 ML (20 mg) IV SCH ×2 (08:34→21:42)
[2017-09-03] MEDS: D5W 1000 ML BAG* 1,000 ML IV SCH ×2 (08:34→21:41)
[2017-09-03] MEDS: Aspirin EC Low Dose* 81 MG TAB.EC PO SCH (08:35)
--- NOTE | 2017-09-03 10:44 | PN ---
Subjective Date of Service: 09/03/17 Interval History: HOSPITALIST PROGRESS NOTE Patient seen and examined at bedside. She's lying in bed, mumbling unintelligible words. Family History: Unchanged from Admission Social History: Unchanged from Admission Past Medical History: Unchanged from Admission Objective Active Medications: Acetaminophen (Tylenol Supp*) 650 mg ME Q6H PRN PRN Reason: PAIN/FEVER Albuterol (Ventolin 2.5 Mg/3 Ml Neb.Abbie*) 2.5 mg INH Q2H PRN PRN Reason: SOB/WHEEZING Aspirin (Aspirin Ec Low Dose*) 81 mg PO DAILY [facility] Last Admin: 09/03/17 08:35 Dose: Not Given Dextrose (D50w Syringe 50 Ml*) 25 gm IV PUSH .FOR FS < 60 - SS PRN PRN Reason: FS < 60 Last Admin: 09/01/17 22:16 Dose: 25 gm Famotidine (Pepcid Iv*) 20 mg IV Q12H [facility] Last Admin: 09/03/17 08:34 Dose: 20 mg Heparin Sodium (Porcine) (Heparin Vial(*)) 5,000 units SUBCUT Q8HR [facility] Last Admin: 09/03/17 06:11 Dose: 5,000 units Dextrose (D5w 1000 Ml Bag*) 1,000 mls @ 100 mls/hr IV PER RATE [facility] Last Admin: 09/03/17 08:34 Dose: 100 mls/hr Meropenem (Merrem 1 Gm Premix(*)) 1 gm in 50 mls @ 100 mls/hr IV Q8H [facility] Insulin Human Lispro (Humalog*) 0 units SUBCUT Q4H [facility] PRN Reason: Protocol Last Admin: 09/03/17 10:04 Dose: 3 units Vital Signs 09/02/17 09/03/17 09/03/17 23:57 01:04 03:37 Temperature 98.9 F 97.9 F Pulse Rate 92 20 93 Respiratory 24 98 24 Rate Blood Pressure 119/48 124/51 (mmHg) O2 Sat by Pulse 98 98 100 Oximetry Oxygen Devices in Use Now: Nasal Cannula - 3 liters Appearance: Elderly lady lying in bed in NAD. Eyes: No Scleral Icterus Ears/Nose/Mouth/Throat: Mucous Membranes Moist Neck: Trachea Midline Respiratory: Symmetrical Chest Expansion and Respiratory Effort, Clear to Auscultation Cardiovascular: RRR - Normal S1 and S2 Abdominal: NL Sounds; No Tenderness; No Distention Neurological: - - Alert and awake, mumbles words Result Diagrams: 09/03/17 06:57 09/03/17 06:57 Assess/Plan/Problems-Billing Assessment: Mrs. Cunningham is a 66yo F with PMH of CVA with residual left hemiplegia, typ2 DM , HTN, HLD, GERD, transferred from [facility] due to unresponsive and hypoxic, found to be in septic shock of unclear etiology initially, now found to have ESBL E. coli UTI. Transferred from ICU 09/02/17. - Patient Problems (1) Septic shock Comment: - Met sepsis criteria on admission with fever, leukocoytosis, tachycardia, complicated by respiratory failure and KRISS. - Source is ESBL E. coli UTI. (2) UTI (urinary tract infection) Comment: - Urine culture growing >100k ESBL E. coli. - Start Meropenem. - Check renal US. (3) KRISS (acute kidney injury) Comment: - Likely secondary to a combination of sepsis and dehydration. - Renal function improving. (4) Hypernatremia Comment: - Secondary to dehydration. - Change fluids to D5w and monitor sodium. (5) Diabetes Comment: - PO intake is poor. Will continue FS q4h and cover with Lispro SS. (6) DVT prophylaxis Comment: - SQ heparin. (7) DNR (do not resuscitate) Status and Disposition: Inpatient.
[2017-09-03] MEDS: Meropenem 1 GM PREMIX(*) 1 GM/50 ML BAG IV SCH ×2 (11:12→18:03)
[2017-09-03 15:16] LABS: Calcium 8.6 mg/dL (8.6-10.3); EGFR African American 61.1 (>60); EGFR Non-African American 47.5 (>60); Potassium 2.8 mmol/L (3.5-5.0)
[2017-09-03 16:26] LABS: Magnesium 2.2 mg/dL (1.9-2.7)
[2017-09-03] MEDS: KCL 10 MEQ/50 ML IVPREMIX* 10 MEQ/50 ML BAG IV SCH ×3 (16:54→21:39)
[2017-09-03] MEDS: Acetaminophen SUPP* 650 MG SUPP PR PRN (20:44)
[2017-09-03 21:00] LABS: BUN/Creatinine Ratio 32.8 (8-20); Calcium 8.8 mg/dL (8.6-10.3); EGFR African American 56.5 (>60); Potassium 3.1 mmol/L (3.5-5.0)
[2017-09-04] MEDS: Meropenem 1 GM PREMIX(*) 1 GM/50 ML BAG IV SCH ×3 (02:14→17:00)
[2017-09-04] MEDS: Insulin LISPRO* 1 UNITS UNIT SUBCUT SCH ×6 (02:16→22:06)
[2017-09-04] MEDS: Heparin VIAL(*) 5000 UNITS/ML VIAL (FIVE THOUSAND) SUBCUT SCH ×3 (05:48→22:05)
[2017-09-04 06:13] LABS: BUN/Creatinine Ratio 28.6 (8-20); Calcium 8.3 mg/dL (8.6-10.3); EGFR African American 54.5 (>60); EGFR Non-African American 42.4 (>60); Potassium 3.3 mmol/L (3.5-5.0)
[2017-09-04 07:03] LABS: Add Diff/Slide Review? Slide Review Added; Comments Flag Yes; Hematocrit 31 % (35-47); Hemoglobin 9.8 g/dl (12.0-16.0); Mean Corpuscular HGB Conc 31 g/dl (31-36); Mean Corpuscular Hemoglobin 30 pg (27-31); Mean Corpuscular Volume 96 fL (80-97); Mean Platelet Volume 11 um3 (7.4-10.4); Red Blood Count 3.28 10^6/ul (4.0-5.4); Red Cell Distribution Width 15 % (10.5-15); White Blood Count 13.8 10^3/ul (3.5-10.8)
[2017-09-04] MEDS: Aspirin EC Low Dose* 81 MG TAB.EC PO SCH (07:59)
[2017-09-04] MEDS: D5W 1000 ML BAG* 1,000 ML IV SCH ×2 (08:00→22:15)
[2017-09-04] MEDS: KCL 10 MEQ/50 ML IVPREMIX* 10 MEQ/50 ML BAG IV SCH ×5 (08:00→11:14)
[2017-09-04] MEDS: Famotidine IV* 10 MG/ML 2 ML (20 mg) IV SCH ×2 (08:00→22:05)
--- NOTE | 2017-09-04 13:10 | PN ---
Subjective Date of Service: 09/04/17 Interval History: HOSPITALIST PROGRESS NOTE Patient seen and examined at bedside. She is more alert today, mumbling words, moving when touched, but PO intake remains very poor. Family History: Unchanged from Admission Social History: Unchanged from Admission Past Medical History: Unchanged from Admission Objective Active Medications: Acetaminophen (Tylenol Supp*) 650 mg LA Q6H PRN PRN Reason: PAIN/FEVER Last Admin: 09/03/17 20:44 Dose: 650 mg Albuterol (Ventolin 2.5 Mg/3 Ml Neb.Abbie*) 2.5 mg INH Q2H PRN PRN Reason: SOB/WHEEZING Aspirin (Aspirin Ec Low Dose*) 81 mg PO DAILY [facility] Last Admin: 09/04/17 07:59 Dose: 81 mg Dextrose (D50w Syringe 50 Ml*) 25 gm IV PUSH .FOR FS < 60 - SS PRN PRN Reason: FS < 60 Last Admin: 09/01/17 22:16 Dose: 25 gm Famotidine (Pepcid Iv*) 20 mg IV Q12H [facility] Last Admin: 09/04/17 08:00 Dose: 20 mg Heparin Sodium (Porcine) (Heparin Vial(*)) 5,000 units SUBCUT Q8HR [facility] Last Admin: 09/04/17 13:03 Dose: 5,000 units Dextrose (D5w 1000 Ml Bag*) 1,000 mls @ 100 mls/hr IV PER RATE [facility] Last Admin: 09/04/17 08:00 Dose: 100 mls/hr Meropenem (Merrem 1 Gm Premix(*)) 1 gm in 50 mls @ 100 mls/hr IV Q8H [facility] Last Admin: 09/04/17 10:31 Dose: 100 mls/hr Insulin Human Lispro (Humalog*) 0 units SUBCUT Q4H [facility] PRN Reason: Protocol Last Admin: 09/04/17 10:32 Dose: 3 units Vital Signs 09/04/17 08:38 Temperature 99.8 F Pulse Rate 92 Respiratory 24 Rate Blood Pressure 114/54 (mmHg) O2 Sat by Pulse 98 Oximetry Oxygen Devices in Use Now: Nasal Cannula - 3 liters Appearance: Elderly lady lying in bed in NAD. Eyes: No Scleral Icterus Ears/Nose/Mouth/Throat: Mucous Membranes Moist Neck: Trachea Midline Respiratory: Symmetrical Chest Expansion and Respiratory Effort, - - BS+ bilaterally coarse Cardiovascular: RRR - Normal S1 and S2 Abdominal: NL Sounds; No Tenderness; No Distention Neurological: - - Lethargic, but arousable to voice and more alert than yesterday Result Diagrams: 09/04/17 05:50 09/04/17 05:50 Assess/Plan/Problems-Billing Assessment: Mrs. Cunningham is a 66yo F with PMH of CVA with residual left hemiplegia, typ2 DM , HTN, HLD, GERD, transferred from [facility] due to unresponsive and hypoxic, found to be in septic shock of unclear etiology initially, now found to have ESBL E. coli UTI. Transferred from ICU 09/02/17. - Patient Problems (1) Septic shock Comment: - Met sepsis criteria on admission with fever, leukocytosis, tachycardia, complicated by respiratory failure and KRISS. - Source is ESBL E. coli UTI. (2) UTI (urinary tract infection) Comment: - Urine culture growing >100k ESBL E. coli. - Continue Meropenem. - Awaiting renal US. (3) KRISS (acute kidney injury) Comment: - Likely secondary to a combination of sepsis and dehydration. - Renal function improving. (4) Hypernatremia Comment: - Secondary to dehydration. - Trending down - continue D5w and monitor sodium. (5) Decreased oral intake Comment: - Patient's MOLST form indicated she would not want a feeding tube and would want a trial of IV fluids. - Will contact her SDM, as if she fails to improved, we should talk about Palliative care. (6) Diabetes Comment: - PO intake is poor. Will continue FS q4h and cover with Lispro SS. (7) DVT prophylaxis Comment: - SQ heparin. (8) DNR (do not resuscitate) Status and Disposition: Inpatient.
--- NOTE | 2017-09-04 22:11 | RAD ---
INDICATION: Urinary tract infection. Evaluate for hydronephrosis. COMPARISON: None TECHNIQUE: Real-time ultrasound examination of the bilateral kidneys and urinary bladder including grayscale and Doppler color flow analysis. FINDINGS: Evaluation was limited by patient movement during image acquisition of the left kidney. The right kidney measures 13.1 x 5.9 x 5.9 cm. The left kidney measures 9.4 x 4.6 x 5.2 cm. There is no definite hydronephrosis. There are 2 shadowing echogenic foci in the superior and lower pole the right kidney consistent with renal calculi. IMPRESSION: There are at least 2 renal calculi identified in the right kidney. There is no definite hydroureter nephrosis. The left kidney appears diminutive relative to the right but this may be a consequence of incomplete imaging of the left kidney.
[2017-09-05] MEDS: Insulin LISPRO* 1 UNITS UNIT SUBCUT SCH ×6 (02:20→21:24)
[2017-09-05] MEDS: Meropenem 1 GM PREMIX(*) 1 GM/50 ML BAG IV SCH ×3 (02:20→17:23)
[2017-09-05] MEDS: Heparin VIAL(*) 5000 UNITS/ML VIAL (FIVE THOUSAND) SUBCUT SCH ×3 (05:39→21:24)
[2017-09-05 06:30] LABS: Hematocrit 28 % (35-47); Mean Corpuscular HGB Conc 33 g/dl (31-36); Mean Corpuscular Hemoglobin 30 pg (27-31); Mean Corpuscular Volume 93 fL (80-97); Mean Platelet Volume 11 um3 (7.4-10.4); Red Blood Count 2.97 10^6/ul (4.0-5.4); Red Cell Distribution Width 15 % (10.5-15); White Blood Count 13.5 10^3/ul (3.5-10.8)
[2017-09-05 06:45] LABS: BUN/Creatinine Ratio 25.7 (8-20); Calcium 8.6 mg/dL (8.6-10.3); EGFR African American 46.7 (>60); EGFR Non-African American 36.3 (>60); Magnesium 1.8 mg/dL (1.9-2.7)
[2017-09-05] MEDS ORDERED: Magnesium Sulfate 2 GM IV* 2 GM/50 ML BAG IVPB ONE (08:00)
[2017-09-05] MEDS: KCL 10 MEQ/50 ML IVPREMIX* 10 MEQ/50 ML BAG IV SCH ×3 (08:47→17:23)
[2017-09-05] MEDS: Famotidine IV* 10 MG/ML 2 ML (20 mg) IV SCH ×2 (08:52→21:25)
[2017-09-05] MEDS: Aspirin EC Low Dose* 81 MG TAB.EC PO SCH (08:52)
--- NOTE | 2017-09-05 10:52 | PN ---
Subjective Date of Service: 09/05/17 Interval History: HOSPITALIST PROGRESS NOTE Patient seen and examined at bedside. She's more awake today, able to interact with examiner. Very thirsty, drank juice, but did not eat breakfast. Family History: Unchanged from Admission Social History: Unchanged from Admission Past Medical History: Unchanged from Admission Objective Active Medications: Acetaminophen (Tylenol Supp*) 650 mg MO Q6H PRN PRN Reason: PAIN/FEVER Last Admin: 09/03/17 20:44 Dose: 650 mg Albuterol (Ventolin 2.5 Mg/3 Ml Neb.Abbie*) 2.5 mg INH Q2H PRN PRN Reason: SOB/WHEEZING Aspirin (Aspirin Ec Low Dose*) 81 mg PO DAILY [facility] Last Admin: 09/05/17 08:52 Dose: 81 mg Dextrose (D50w Syringe 50 Ml*) 25 gm IV PUSH .FOR FS < 60 - SS PRN PRN Reason: FS < 60 Last Admin: 09/01/17 22:16 Dose: 25 gm Famotidine (Pepcid Iv*) 20 mg IV Q12H [facility] Last Admin: 09/05/17 08:52 Dose: 20 mg Heparin Sodium (Porcine) (Heparin Vial(*)) 5,000 units SUBCUT Q8HR [facility] Last Admin: 09/05/17 05:39 Dose: 5,000 units Meropenem (Merrem 1 Gm Premix(*)) 1 gm in 50 mls @ 100 mls/hr IV Q8H [facility] Last Admin: 09/05/17 02:20 Dose: 100 mls/hr Potassium Chloride (Potassium Chloride 10 Meq/50 Ml Ivpremix*) 10 meq in 50 mls @ 50 mls/hr IV Q1H [facility] Stop: 09/05/17 10:59 Last Admin: 09/05/17 08:47 Dose: 50 mls/hr Potassium Chloride 40 meq/ (Lactated Ringer's) 1,020 mls @ 100 mls/hr IVPB Q10H [facility] Last Admin: 09/05/17 08:45 Dose: 100 mls/hr Insulin Human Lispro (Humalog*) 0 units SUBCUT Q4H [facility] PRN Reason: Protocol Last Admin: 09/05/17 05:39 Dose: 3 units Vital Signs 09/04/17 09/05/17 23:50 04:19 Temperature 98.7 F 97.8 F Pulse Rate 87 87 Respiratory 18 20 Rate Blood Pressure 139/70 111/76 (mmHg) O2 Sat by Pulse 100 98 Oximetry Oxygen Devices in Use Now: Nasal Cannula - 3 liters Appearance: Elderly lady lying in bed in NAD. Eyes: No Scleral Icterus Ears/Nose/Mouth/Throat: Mucous Membranes Moist Neck: Trachea Midline Respiratory: Symmetrical Chest Expansion and Respiratory Effort, Clear to Auscultation Cardiovascular: RRR - Normal S1 and S2 Abdominal: NL Sounds; No Tenderness; No Distention Neurological: - - AAOx2 (self and place) Lines/Tubes/Other Access: Clean, Dry and Intact Peripheral IV Nutrition: Taking PO's Result Diagrams: 09/05/17 06:12 09/05/17 06:12 Assess/Plan/Problems-Billing Assessment: Mrs. Cunningham is a 66yo F with PMH of CVA with residual left hemiplegia, typ2 DM , HTN, HLD, GERD, transferred from [facility] due to unresponsive and hypoxic, found to be in septic shock of unclear etiology initially, now found to have ESBL E. coli UTI. Transferred from ICU 09/02/17. - Patient Problems (1) Septic shock Comment: - Met sepsis criteria on admission with fever, leukocytosis, tachycardia, complicated by respiratory failure and KRISS. - Source is ESBL E. coli UTI. (2) UTI (urinary tract infection) Comment: - Urine culture growing >100k ESBL E. coli. - Continue Meropenem. - Renal US negative for hydronephrosis. (3) KRISS (acute kidney injury) Comment: - Likely secondary to a combination of sepsis and dehydration. - Renal function improving. (4) Hypernatremia Comment: - Secondary to dehydration. - Trending down - change fluids to LR and monitor sodium. (5) Decreased oral intake Comment: - Patient's MOLST form indicated she would not want a feeding tube and would want a trial of IV fluids. - D/w SDM - will see how she does over the weekend as she's more alert and awake now, but if poor PO intake persists, will talk about NGT. (6) Diabetes Comment: - PO intake is improving. - Will change FS to ACHS and continue Lispro SS. (7) DVT prophylaxis Comment: - SQ heparin. (8) DNR (do not resuscitate) Status and Disposition: Inpatient.
[2017-09-06] MEDS: Acetaminophen SUPP* 650 MG SUPP PR PRN (05:08)
[2017-09-06] MEDS: Heparin VIAL(*) 5000 UNITS/ML VIAL (FIVE THOUSAND) SUBCUT SCH ×3 (05:08→22:09)
[2017-09-06] MEDS: Meropenem 1 GM PREMIX(*) 1 GM/50 ML BAG IV SCH ×2 (05:42→16:57)
[2017-09-06] MEDS: Aspirin EC Low Dose* 81 MG TAB.EC PO SCH (08:09)
[2017-09-06] MEDS: Insulin LISPRO* 1 UNITS UNIT SUBCUT SCH ×4 (08:09→20:22)
[2017-09-06] MEDS: Famotidine IV* 10 MG/ML 2 ML (20 mg) IV SCH ×2 (08:09→20:22)
[2017-09-06 08:50] LABS: BUN/Creatinine Ratio 22.4 (8-20); Calcium 8.4 mg/dL (8.6-10.3); EGFR African American 50.7 (>60); EGFR Non-African American 39.5 (>60); Potassium 4.5 mmol/L (3.5-5.0)
--- NOTE | 2017-09-06 14:38 | PN ---
Subjective Date of Service: 09/06/17 Interval History: HOSPITALIST PROGRESS NOTE Patient seen and examined at bedside. Mumbling words, but more awake and interactive. Family History: Unchanged from Admission Social History: Unchanged from Admission Past Medical History: Unchanged from Admission Objective Active Medications: Acetaminophen (Tylenol Supp*) 650 mg MA Q6H PRN PRN Reason: PAIN/FEVER Last Admin: 09/06/17 05:08 Dose: 650 mg Albuterol (Ventolin 2.5 Mg/3 Ml Neb.Abbie*) 2.5 mg INH Q2H PRN PRN Reason: SOB/WHEEZING Aspirin (Aspirin Ec Low Dose*) 81 mg PO DAILY [facility] Last Admin: 09/06/17 08:09 Dose: 81 mg Dextrose (D50w Syringe 50 Ml*) 25 gm IV PUSH .FOR FS < 60 - SS PRN PRN Reason: FS < 60 Last Admin: 09/01/17 22:16 Dose: 25 gm Famotidine (Pepcid Iv*) 20 mg IV Q12H [facility] Last Admin: 09/06/17 08:09 Dose: 20 mg Heparin Sodium (Porcine) (Heparin Vial(*)) 5,000 units SUBCUT Q8HR [facility] Last Admin: 09/06/17 05:08 Dose: 5,000 units Meropenem (Merrem 1 Gm Premix(*)) 1 gm in 50 mls @ 100 mls/hr IV Q12H [facility] Last Admin: 09/06/17 05:42 Dose: 100 mls/hr Lactated Ringer's (Lactated Ringers 1000 Ml Bag*) 1,000 mls @ 100 mls/hr IV ONCE ONE Stop: 09/06/17 19:43 Last Admin: 09/06/17 12:05 Dose: 100 mls/hr Insulin Human Lispro (Humalog*) 0 units SUBCUT ACHS [facility] PRN Reason: Protocol Last Admin: 09/06/17 12:36 Dose: 9 units Vital Signs 09/06/17 12:04 Temperature 98.1 F Pulse Rate 95 Respiratory 17 Rate Blood Pressure 131/55 (mmHg) O2 Sat by Pulse 100 Oximetry Oxygen Devices in Use Now: Nasal Cannula - 2 liters Appearance: Elderly lady lying in bed in NAD. Eyes: No Scleral Icterus Ears/Nose/Mouth/Throat: Mucous Membranes Moist Neck: Trachea Midline Respiratory: Symmetrical Chest Expansion and Respiratory Effort, - - BS+ bilaterally coarse with no added sounds Cardiovascular: RRR - Normal S1 and S2 Abdominal: NL Sounds; No Tenderness; No Distention Neurological: - - Alert and awake Result Diagrams: 09/05/17 06:12 09/06/17 08:30 Assess/Plan/Problems-Billing Assessment: Mrs. Cunningham is a 66yo F with PMH of CVA with residual left hemiplegia, typ2 DM , HTN, HLD, GERD, transferred from [facility] due to unresponsive and hypoxic, found to be in septic shock of unclear etiology initially, now found to have ESBL E. coli UTI. Transferred from ICU 09/02/17. - Patient Problems (1) Septic shock Comment: - Met sepsis criteria on admission with fever, leukocytosis, tachycardia, complicated by respiratory failure and KRISS. - Source is ESBL E. coli UTI. (2) UTI (urinary tract infection) Comment: - Not Frazier catheter related, present on admission. - Urine culture growing >100k ESBL E. coli. - Continue Meropenem. - Renal US negative for hydronephrosis. - One episode of fever 100.9 yesterday - d/c Frazier and continue to monitor. (3) KRISS (acute kidney injury) Comment: - Likely secondary to a combination of sepsis and dehydration. - Renal function improving. (4) Hypernatremia Comment: - Secondary to dehydration. - Resolved - change fluids to LR and monitor sodium. (5) Decreased oral intake Comment: - Patient's MOLST form indicated she would not want a feeding tube and would want a trial of IV fluids. - D/w SDM - will see how she does over the weekend as she's more alert and awake now, but if poor PO intake persists, will talk about NGT. - She is eating more today - will continue to monitor. (6) Diabetes Comment: - PO intake is improving and glucose is trending up. - Add low dose Lantus. - Continue FS ACHS and Lispro SS. (7) DVT prophylaxis Comment: - SQ heparin. (8) DNR (do not resuscitate) Status and Disposition: Inpatient.
[2017-09-06] MEDS: Acetaminophen TAB* 325 MG PO PRN (16:57)
[2017-09-06] MEDS: Insulin GLARGINE(*) 1 UNITS UNIT SUBCUT SCH (20:23)
[2017-09-06] MEDS ORDERED: NS 0.9% 1000 ML* 500 ML IV ONE (23:45)
[2017-09-07] MEDS: Acetaminophen TAB* 325 MG PO PRN (00:17)
[2017-09-07] MEDS: Meropenem 1 GM PREMIX(*) 1 GM/50 ML BAG IV SCH ×2 (05:42→17:43)
[2017-09-07] MEDS: Heparin VIAL(*) 5000 UNITS/ML VIAL (FIVE THOUSAND) SUBCUT SCH ×3 (05:45→20:45)
[2017-09-07 07:07] LABS: Hematocrit 27 % (35-47); Hemoglobin 8.8 g/dl (12.0-16.0); Mean Corpuscular HGB Conc 33 g/dl (31-36); Mean Corpuscular Hemoglobin 30 pg (27-31); Mean Corpuscular Volume 93 fL (80-97); Mean Platelet Volume 11 um3 (7.4-10.4); Red Blood Count 2.91 10^6/ul (4.0-5.4); Red Cell Distribution Width 14 % (10.5-15); White Blood Count 10.3 10^3/ul (3.5-10.8)
[2017-09-07] MEDS ORDERED: Furosemide IV* 10 MG/ML 2 ML VIAL (20 MG) IV SLOW PU ONE (07:27)
[2017-09-07] MEDS: Famotidine IV* 10 MG/ML 2 ML (20 mg) IV SCH ×2 (09:24→20:45)
[2017-09-07] MEDS: Aspirin EC Low Dose* 81 MG TAB.EC PO SCH (09:24)
[2017-09-07] MEDS: Insulin LISPRO* 1 UNITS UNIT SUBCUT SCH ×4 (09:24→20:44)
[2017-09-07 09:31] LABS: BUN/Creatinine Ratio 20.7 (8-20); Blood Urea Nitrogen 28 mg/dL (6-24); CO2 Carbon Dioxide 22 mmol/L (22-32); Calcium 8.1 mg/dL (8.6-10.3); Chloride 112 mmol/L (101-111); EGFR African American 50.3 (>60); EGFR Non-African American 39.1 (>60); Glucose 116 mg/dL (70-100); Sodium 142 mmol/L (133-145)
[2017-09-07 09:39] LABS: Anion Gap 8 mmol/L (2-11)
--- NOTE | 2017-09-07 13:18 | PN ---
Subjective Date of Service: 09/07/17 Interval History: HOSPITALIST PROGRESS NOTE Patient seen and examined at bedside. She is more alert and awake today. Denies pain, able to tell me she's thirsty. Family History: Unchanged from Admission Social History: Unchanged from Admission Past Medical History: Unchanged from Admission Objective Active Medications: Acetaminophen (Tylenol Tab*) 650 mg PO Q6H PRN PRN Reason: pain/fever Last Admin: 09/07/17 00:17 Dose: 650 mg Albuterol (Ventolin 2.5 Mg/3 Ml Neb.Abbie*) 2.5 mg INH Q2H PRN PRN Reason: SOB/WHEEZING Aspirin (Aspirin Ec Low Dose*) 81 mg PO DAILY [facility] Last Admin: 09/07/17 09:24 Dose: 81 mg Dextrose (D50w Syringe 50 Ml*) 25 gm IV PUSH .FOR FS < 60 - SS PRN PRN Reason: FS < 60 Last Admin: 09/01/17 22:16 Dose: 25 gm Famotidine (Pepcid Iv*) 20 mg IV Q12H [facility] Last Admin: 09/07/17 09:24 Dose: 20 mg Heparin Sodium (Porcine) (Heparin Vial(*)) 5,000 units SUBCUT Q8HR [facility] Last Admin: 09/07/17 12:55 Dose: 5,000 units Meropenem (Merrem 1 Gm Premix(*)) 1 gm in 50 mls @ 100 mls/hr IV Q12H [facility] Last Admin: 09/07/17 05:42 Dose: 100 mls/hr Insulin Glargine (Lantus(*)) 8 units SUBCUT BEDTIME [facility] Last Admin: 09/06/17 20:23 Dose: 8 units Insulin Human Lispro (Humalog*) 0 units SUBCUT ACHS [facility]PRE[facility] PRN Reason: Protocol Last Admin: 09/07/17 12:55 Dose: 3 units Vital Signs 09/06/17 09/07/17 09/07/17 23:57 03:51 04:18 Temperature 98.2 F 98.0 F Pulse Rate 100 96 90 Respiratory 16 16 16 Rate Blood Pressure 154/63 177/78 (mmHg) O2 Sat by Pulse 100 100 100 Oximetry Oxygen Devices in Use Now: Nasal Cannula - 2 liters Appearance: Elderly lady lying in bed in NAD. Eyes: No Scleral Icterus Ears/Nose/Mouth/Throat: Mucous Membranes Moist Neck: Trachea Midline Respiratory: Symmetrical Chest Expansion and Respiratory Effort, Clear to Auscultation Cardiovascular: RRR - Normal S1 and S2 Abdominal: NL Sounds; No Tenderness; No Distention Neurological: - - Alert and awake, oriented to self only. Result Diagrams: 09/07/17 06:25 09/07/17 10:14 Assess/Plan/Problems-Billing Assessment: Mrs. Cunningham is a 66yo F with PMH of CVA with residual left hemiplegia, typ2 DM , HTN, HLD, GERD, transferred from [facility] due to unresponsive and hypoxic, found to be in septic shock of unclear etiology initially, now found to have ESBL E. coli UTI. Transferred from ICU 09/02/17. - Patient Problems (1) Septic shock Comment: - Met sepsis criteria on admission with fever, leukocytosis, tachycardia, complicated by respiratory failure and KRISS. - Source is ESBL E. coli UTI. (2) UTI (urinary tract infection) Comment: - Not Frazier catheter related, present on admission. - Urine culture growing >100k ESBL E. coli. - Continue Meropenem #02/15. - Renal US negative for hydronephrosis. - No further episodes of fever. (3) KRISS (acute kidney injury) Comment: - Likely secondary to a combination of sepsis and dehydration. - Renal function improved and remains stable. (4) Hypernatremia Comment: - Secondary to dehydration. - Resolved - d/c IVF. (5) Decreased oral intake Comment: - Patient's MOLST form indicated she would not want a feeding tube and would want a trial of IV fluids. - D/w SDM - will see how she does over the weekend as she's more alert and awake now, but if poor PO intake persists, will talk about NGT. - PO intake continues to improve - she ate 85% of her breakfast today. (6) Diabetes Comment: - PO intake is improving and glucose is trending up. - Continue low dose Lantus and Lispro SS. (7) DVT prophylaxis Comment: - SQ heparin. (8) DNR (do not resuscitate) Status and Disposition: Inpatient.
[2017-09-07] MEDS: Insulin GLARGINE(*) 1 UNITS UNIT SUBCUT SCH (20:44)
[2017-09-08] MEDS: Meropenem 1 GM PREMIX(*) 1 GM/50 ML BAG IV SCH ×4 (05:55→22:34)
[2017-09-08] MEDS: Heparin VIAL(*) 5000 UNITS/ML VIAL (FIVE THOUSAND) SUBCUT SCH ×3 (05:55→22:33)
[2017-09-08] MEDS: Insulin LISPRO* 1 UNITS UNIT SUBCUT SCH ×4 (07:23→19:54)
[2017-09-08] MEDS: Aspirin EC Low Dose* 81 MG TAB.EC PO SCH (08:14)
[2017-09-08] MEDS: Famotidine IV* 10 MG/ML 2 ML (20 mg) IV SCH ×2 (08:14→22:33)
[2017-09-08] MEDS: Acetaminophen TAB* 325 MG PO PRN (12:31)
--- NOTE | 2017-09-08 17:47 | PN ---
Subjective Date of Service: 09/08/17 Interval History: Pt stating in pain but very difficult to get her to localize, other than with infusions in right wrist IV. Eating okay. got tylenol for pain. Tmax 99.6. 2L Family History: Unchanged from Admission Social History: Unchanged from Admission Past Medical History: Unchanged from Admission Objective Active Medications: Acetaminophen (Tylenol Tab*) 650 mg PO Q6H PRN PRN Reason: pain/fever Last Admin: 09/08/17 12:31 Dose: 650 mg Albuterol (Ventolin 2.5 Mg/3 Ml Neb.Abbie*) 2.5 mg INH Q2H PRN PRN Reason: SOB/WHEEZING Aspirin (Aspirin Ec Low Dose*) 81 mg PO DAILY [facility] Last Admin: 09/08/17 08:14 Dose: 81 mg Dextrose (D50w Syringe 50 Ml*) 25 gm IV PUSH .FOR FS < 60 - SS PRN PRN Reason: FS < 60 Last Admin: 09/01/17 22:16 Dose: 25 gm Famotidine (Pepcid Iv*) 20 mg IV Q12H [facility] Last Admin: 09/08/17 08:14 Dose: 20 mg Heparin Sodium (Porcine) (Heparin Vial(*)) 5,000 units SUBCUT Q8HR [facility] Last Admin: 09/08/17 12:32 Dose: 5,000 units Meropenem (Merrem 1 Gm Premix(*)) 1 gm in 50 mls @ 100 mls/hr IV Q12H [facility] Last Admin: 09/08/17 17:23 Dose: 100 mls/hr Insulin Glargine (Lantus(*)) 8 units SUBCUT BEDTIME [facility] Last Admin: 09/07/17 20:44 Dose: 8 units Insulin Human Lispro (Humalog*) 0 units SUBCUT ACHS [facility] PRN Reason: Protocol Last Admin: 09/08/17 17:23 Dose: 6 units Vital Signs 09/07/17 09/07/17 09/07/17 19:25 20:00 23:17 Temperature 99.6 F Pulse Rate 96 88 Respiratory 24 20 16 Rate Blood Pressure 153/62 175/68 (mmHg) O2 Sat by Pulse 100 96 Oximetry 09/08/17 09/08/17 09/08/17 02:09 05:14 07:29 Temperature 98.2 F 98.0 F Pulse Rate 92 86 83 Respiratory 16 16 20 Rate Blood Pressure 147/72 141/58 (mmHg) O2 Sat by Pulse 98 100 100 Oximetry 09/08/17 12:40 Temperature 97.9 F Pulse Rate 95 Respiratory 22 Rate Blood Pressure 150/72 (mmHg) O2 Sat by Pulse 100 Oximetry Oxygen Devices in Use Now: Nasal Cannula Appearance: chronically ill appearing. moderate distress. Eyes: No Scleral Icterus, PERRLA Ears/Nose/Mouth/Throat: NL Teeth, Lips, Gums Neck: NL Appearance and Movements; NL JVP, Trachea Midline Respiratory: Symmetrical Chest Expansion and Respiratory Effort, Clear to Auscultation Cardiovascular: NL Sounds; No Murmurs; No JVD, RRR Abdominal: NL Sounds; No Tenderness; No Distention, No Hepatosplenomegaly Extremities: - - left heel with gouge but intact skin. Skin: - - reported some skin breakdown on back. Neurological: - - oriented to name. Otherwise very difficult to understand or make her needs know. perseverating. left arm near flaccid. Result Diagrams: 09/07/17 06:25 09/07/17 10:14 Additional Lab and Data: Laboratory Results - last 24 hr 09/08/17 09/08/17 09/08/17 07:16 12:00 16:51 POC Glucose (mg/dL) 93 228 H 228 H 09/08/17 19:44 POC Glucose (mg/dL) 223 H Microbiology and Other Data: Microbiology 09/01/17 02:32 Blood Venous Aerobic Blood Culture - Final No Growth Day 5 09/01/17 02:32 Blood Venous Anaerobic Blood Culture - Final No Growth Day 5 09/01/17 02:30 Blood Venous Aerobic Blood Culture - Final No Growth Day 5 09/01/17 02:30 Blood Venous Anaerobic Blood Culture - Final No Growth Day 5 09/01/17 02:48 Urine Urine Culture - Final Esbl Escherichia Coli 09/01/17 05:50 Nasal Nasal Screen MRSA (PCR)(ERASMO) - Final Mrsa Negative 09/01/17 02:48 Nasal Influenza Types A,B Antigen (ERASMO) - Final Specimen received for Influenza A/B Molecular testing Assess/Plan/Problems-Billing Assessment: Mrs. Cunningham is a 66yo F with PMH of CVA with residual left hemiplegia, type 2 DM, HTN, HLD, GERD, transferred from [place] due to unresponsiveness and hypoxic, found to be in septic shock of unclear etiology initially, now found to have ESBL E. coli UTI. Transferred from ICU 09/02/17. - Patient Problems (1) Septic shock Current Visit: Yes Status: Acute Code(s): A41.9 - SEPSIS, UNSPECIFIED ORGANISM; R65.21 - SEVERE SEPSIS WITH SEPTIC SHOCK SNOMED Code(s): 16640905 Comment: - Met sepsis criteria on admission with fever, leukocytosis, tachycardia, complicated by respiratory failure and KRISS. - Source is ESBL E. coli UTI. continue meropenem. (2) UTI (urinary tract infection) Current Visit: Yes Status: Acute Comment: - Not Frazier catheter related, present on admission. - Urine culture growing >100k ESBL E. coli. - Continue Meropenem #6/. - Renal US negative for hydronephrosis. (3) Diabetes Current Visit: Yes Status: Chronic Code(s): E11.9 - TYPE 2 DIABETES MELLITUS WITHOUT COMPLICATIONS SNOMED Code(s): 64038478 Comment: - PO intake is improving and glucose is trending up.90-220s - Continue low dose Lantus and Lispro SS. (4) History of CVA (cerebrovascular accident) Current Visit: No Status: Acute Code(s): Z86.73 - PRSNL HX OF TIA (TIA), AND CEREB INFRC W/O RESID DEFICITS SNOMED Code(s): 709055083 Comment: L hemiparesis, WC bound, actually spends almost all her day in bed. Apparently not on ASA as outpt, will try to verify. Visual deficit also. (5) KRISS (acute kidney injury) Current Visit: Yes Status: Acute Code(s): N17.9 - ACUTE KIDNEY FAILURE, UNSPECIFIED SNOMED Code(s): 53640911 Comment: - Likely secondary to a combination of sepsis and dehydration. - Renal function improved and remains stable. Status and Disposition: medicine inpatient. Planned back to [facility] [place] after IV antibiotics Attending: Shoaib Sparks
[2017-09-08] MEDS: Insulin GLARGINE(*) 1 UNITS UNIT SUBCUT SCH (19:55)
[2017-09-09] MEDS ORDERED: Morphine INJ* 2 MG/ML 1 ML SYRINGE (TWO MG - NEW SYRINGE VERSION) IV PRN (00:06)
[2017-09-09] MEDS: Heparin VIAL(*) 5000 UNITS/ML VIAL (FIVE THOUSAND) SUBCUT SCH ×3 (05:31→21:38)
[2017-09-09] MEDS: Aspirin EC Low Dose* 81 MG TAB.EC PO SCH (08:47)
[2017-09-09] MEDS: Insulin LISPRO* 1 UNITS UNIT SUBCUT SCH ×4 (08:47→21:30)
[2017-09-09] MEDS: Famotidine IV* 10 MG/ML 2 ML (20 mg) IV SCH ×2 (08:48→21:30)
--- NOTE | 2017-09-09 09:28 | PN ---
Subjective Date of Service: 09/09/17 Interval History: Patient seen this morning. Difficult to make her needs known but denies pain, appears comfortable after repositioning. Family History: Unchanged from Admission Social History: Unchanged from Admission Past Medical History: Unchanged from Admission Objective Active Medications: Acetaminophen (Tylenol Tab*) 650 mg PO Q6H PRN Albuterol (Ventolin 2.5 Mg/3 Ml Neb.Abbie*) 2.5 mg INH Q2H PRN Aspirin (Aspirin Ec Low Dose*) 81 mg PO DAILY MANPREET Dextrose (D50w Syringe 50 Ml*) 25 gm IV PUSH .FOR FS < 60 - SS PRN Famotidine (Pepcid Iv*) 20 mg IV Q12H MANPREET Heparin Sodium (Porcine) (Heparin Vial(*)) 5,000 units SUBCUT Q8HR MANPREET Meropenem (Merrem 1 Gm Premix(*)) 1 gm in 50 mls @ 100 mls/hr IV 1030,2230 MANPREET Insulin Glargine (Lantus(*)) 8 units SUBCUT BEDTIME MANPREET Insulin Human Lispro (Humalog*) 0 units SUBCUT ACHS MANPREET Morphine Sulfate (Morphine Inj (Syringe)*) 2 mg IV Q4H PRN Vital Signs 09/08/17 09/08/17 09/08/17 12:40 15:52 20:00 Temperature 97.9 F 99.1 F Pulse Rate 95 91 Respiratory 22 16 22 Rate Blood Pressure 150/72 133/54 (mmHg) O2 Sat by Pulse 100 100 Oximetry 09/08/17 09/08/17 09/08/17 20:31 20:37 23:54 Temperature 97.2 F 98.2 F Pulse Rate 86 88 Respiratory 20 24 Rate Blood Pressure 142/53 138/62 (mmHg) O2 Sat by Pulse 100 100 Oximetry 09/09/17 09/09/17 00:14 03:19 Temperature 97.8 F Pulse Rate 92 91 Respiratory 20 18 Rate Blood Pressure 153/68 (mmHg) O2 Sat by Pulse 100 100 Oximetry Oxygen Devices in Use Now: Nasal Cannula Appearance: Middle-aged, F, laying in bed in NAD Eyes: No Scleral Icterus Ears/Nose/Mouth/Throat: - - Dry MM Neck: NL Appearance and Movements; NL JVP Respiratory: Symmetrical Chest Expansion and Respiratory Effort, Clear to Auscultation - in anterior and lateral whittaker Cardiovascular: NL Sounds; No Murmurs; No JVD, RRR Abdominal: NL Sounds; No Tenderness; No Distention Lymphatic: No Cervical Adenopathy Extremities: No Edema Neurological: - - Alert, perseverating speech, L arm flaccid, will not move R arm Result Diagrams: 09/07/17 06:25 09/07/17 10:14 Microbiology and Other Data: Assess/Plan/Problems-Billing Assessment: Mrs. Cunningham is a 66yo F with PMH of CVA with residual left hemiplegia, type 2 DM, HTN, HLD, GERD, transferred from [facility] [place] due to unresponsiveness and hypoxic, found to be in septic shock of unclear etiology initially, now found to have ESBL E. coli UTI. Transferred from ICU 09/02/17. - Patient Problems (1) Septic shock Current Visit: Yes Comment: - Met sepsis criteria on admission with fever, leukocytosis, tachycardia, complicated by respiratory failure and KRISS. - Source is ESBL E. coli UTI. continue meropenem. (2) UTI (urinary tract infection) Current Visit: Yes Comment: - Not Frazier catheter related, present on admission. - Urine culture growing >100k ESBL E. coli. - Continue Meropenem #7/, last dose tonight - Renal US negative for hydronephrosis. (3) Diabetes Current Visit: Yes Comment: - PO intake is OK, BGs 140-230s - Continue low dose Lantus and Lispro SS. (4) History of CVA (cerebrovascular accident) Current Visit: No Comment: L hemiparesis, WC bound, actually spends almost all her day in bed. Apparently not on ASA as outpt, will try to verify. Visual deficit also. (5) KRISS (acute kidney injury) Current Visit: Yes Comment: - Likely secondary to a combination of sepsis and dehydration. - Renal function improved and remains stable. (6) DVT prophylaxis Current Visit: Yes Comment: - SQ heparin. Status and Disposition: medicine inpatient. Planned back to [facility] [place] after IV antibiotics, likely 09/10
[2017-09-09] MEDS: Meropenem 1 GM PREMIX(*) 1 GM/50 ML BAG IV SCH ×2 (11:02→22:45)
[2017-09-09] MEDS: Insulin GLARGINE(*) 1 UNITS UNIT SUBCUT SCH (21:30)
[2017-09-10] MEDS: Heparin VIAL(*) 5000 UNITS/ML VIAL (FIVE THOUSAND) SUBCUT SCH (04:17)
[2017-09-10 04:39] VITALS: BP 141/65
[2017-09-10] MEDS: Insulin LISPRO* 1 UNITS UNIT SUBCUT SCH (08:52)
--- NOTE | 2017-09-10 09:02 | DCNOTE ---
Patient seen this morning. Friend and HCP, Lay, at the bedside. Says patient is doing much better. Understands plan to d/c to [facility] [place] today but was upset about lack of communication. On exam, RRR, s1 and s2 present, no m/g/r, abd soft, NTND, BS+, mostly non- verbal, repeats "stop, help" which is her baseline, no LE edema. Completed course of Meropenem, plan to discharge back to [facility] [place] today.
[2017-09-10] MEDS: Famotidine IV* 10 MG/ML 2 ML (20 mg) IV SCH (10:14)
[2017-09-10] MEDS: Aspirin EC Low Dose* 81 MG TAB.EC PO SCH (10:14)
[2017-09-10] MEDS: Acetaminophen TAB* 325 MG PO PRN (10:14)
--- NOTE | 2017-09-10 10:22 | DS ---
DISCHARGE SUMMARY: DATE OF ADMISSION: 09/01/2017 DATE OF DISCHARGE: 09/10/2017 PRIMARY CARE PHYSICIAN: Through [facility] PRINCIPAL DISCHARGE DIAGNOSIS: Septic shock secondary to ESBL E. coli urinary tract infection. SECONDARY DIAGNOSES: 1. CVA with left hemiplegia and dysphasia. 2. Type 2 diabetes. 3. Hypertension. 4. Hyperlipidemia. 5. GERD. 6. Personality disorder not otherwise specified. DISCHARGE MEDICATION REGIMEN: 1. Magnesium 1 tablet by mouth daily. 2. Senna 2 tablets by mouth 2x a day. 3. Protonix 20 mg by mouth daily. 4. Carafate 1 g by mouth with meals. 5. Vitamin D3 50,000 units by mouth monthly. 6. Gabapentin 10 mg by mouth 2x daily. 7. Acetaminophen 500 mg by mouth 3x daily. 8. Lantus 8 units subcutaneous daily. 9. Lispro 8 units subcutaneous with meals. 10. Tylenol 650 mg by mouth every 6 hours as needed for pain. 11. Tramadol 50 mg by mouth every 6 hours as needed for pain. 12. Simethicone 80 mg by mouth 2x daily as needed for gas. STUDIES DONE DURING HOSPITALIZATION: Renal ultrasound. Impression: There are at least 2 renal calculi identified in the right kidney. There is no definite hydroureter nephrosis. The left kidney appears diminutive relative to the right , but this may be a consequence of incomplete imaging of the left kidney. Chest x-ray. Impression: Patchy left basilar atelectasis versus consolidation. Recommend followup until resolution to exclude underlying pulmonary parenchymal pathology. HISTORY OF PRESENT ILLNESS AND HOSPITAL SUMMARY: Please see the full history and physical by Dr. Cheikh Fuller for full details. Briefly Ms. Cunningham is a 66- year-old female, with past medical as above, who presented to the hospital after being found unresponsive and hypoxic at [facility]. Patient had a white count of 31,000 on admission, serum sodium of 154, BUN and creatinine of 92 and 2.35 respectively. Patient was diagnosed with septic shock likely secondary to UTI. She started on vanc and cefepime, and was given aggressive IV fluids. She was admitted to the ICU. Her renal dysfunction and hyponatremia subsequently improved. Patient did have a mild troponin elevation to 0.4 and over the following days her lactic acid improved as well. Her blood pressure stabilized and the patient was transferred to the floor. She was subsequently found to be growing ESBL E. coli in the urine that was resistant to cefepime. She was changed to meropenem and subsequently completed a 7 day course of meropenem here in the hospital. The patient had some intermittent atrial fibrillation during the hospitalization that was likely just related to her infection. In the days leading up to discharge the patient's appetite improved. Blood sugars were fairly well controlled and she will be discharged back to [facility]. Total time spent on this discharge 45 minutes. This is a summary of hospitalization; please see full medical record for further details. [id number]/CPS #: [id number] MTDD
== END 2017-09-10 11:45 | DRG 871 ==
LOC: ED 02:17 → ICU 04:16 → MED 09-02 10:47
PROVIDERS: ADMIT Hospitalist; ATTEND Hospitalist
PROC: 5A09357 Assistance with Respiratory Ventilation, Less than 24 Consecutive Hours, Continuous Positive Airway Pressure (ICD-10-PCS; principal; 2017-09-01)
DX: A41.9 Sepsis, unspecified organism (principal); R65.21 Severe sepsis with septic shock; J96.91 Respiratory failure, unspecified with hypoxia; N17.9 Acute kidney failure, unspecified; E87.0 Hyperosmolality and hypernatremia; I48.91 Unspecified atrial fibrillation; E11.65 Type 2 diabetes mellitus with hyperglycemia; R13.10 Dysphagia, unspecified; E86.0 Dehydration; N39.0 Urinary tract infection, site not specified; I69.354 Hemiplegia and hemiparesis following cerebral infarction affecting left non-dominant side; Z66 Do not resuscitate; I10 Essential (primary) hypertension; K21.9 Gastro-esophageal reflux disease without esophagitis; F60.9 Personality disorder, unspecified; E66.9 Obesity, unspecified; N20.0 Calculus of kidney; Z16.19 Resistance to other specified beta lactam antibiotics; E78.2 Mixed hyperlipidemia; B96.20 Unspecified Escherichia coli [E. coli] as the cause of diseases classified elsewhere; I69.391 Dysphagia following cerebral infarction; Z88.6 Allergy status to analgesic agent; Z88.8 Allergy status to other drugs, medicaments and biological substances; Z68.29 Body mass index [BMI] 29.0-29.9, adult; Z82.3 Family history of stroke; Z80.1 Family history of malignant neoplasm of trachea, bronchus and lung; Z99.3 Dependence on wheelchair; Z79.4 Long term (current) use of insulin
CPT/HCPCS: 36415; 36600; 71010; 76775; 80048; 80053; 81003; 81015; 82803; 83036; 83605; 83735; 83880; 84484; 85025; 85027; 85610; 85730; 86140; 87040; 87077; 87086; 87186; 87502; 87641; 93005; 94640; 94660; A9270-GY; J0692; J0696; J1644; J1940; J2185; J2270; J2543; J3370; J3475; J3480

== ENCOUNTER 2017-10-09 13:58 | Emergency (ER) | payer MEDICARE ==
[2017-10-09 14:18] VITALS: BP 98/54
--- NOTE | 2017-10-09 14:57 | RAD ---
INDICATION: Left femoral pain. History of marked osteopenia COMPARISON: Left shoulder September 22, 2017 TECHNIQUE: Multiple views were obtained. FINDINGS: There is marked osteopenia. There is no definitive evidence of acute bony change. There are osteocytic changes about the knee. There are vascular calcifications. IMPRESSION: MARKED OSTEOPENIA. NO ACUTE FRACTURE IS IDENTIFIED.
--- NOTE | 2017-10-09 15:00 | RAD ---
INDICATION: Knee bruising. Pain. Marked osteopenia. COMPARISON: Left femur same date TECHNIQUE: AP and lateral views were obtained. FINDINGS: There is marked osteopenia which leads to mild decrease in sensitivity of this examination. There is a nondisplaced, mildly comminuted, transverse fracture through the proximal tibial metaphysis. No additional definitive fractures are seen. There is moderate osteoarthritic change about the knee. There are extensive vascular calcifications. There is pretibial edema. Limited views of the distal tibia and ankle show advanced arthritic changes about the tibiotalar joint. IMPRESSION: NONDISPLACED TRANSVERSE FRACTURE THROUGH THE PROXIMAL TIBIA. Marked osteopenia
--- NOTE | 2017-10-09 15:09 | ED ---
Lower Extremity - HPI Summary HPI Summary: Patient presents from [facility] HX CVA with sequelae of L hemiplegia arrives to the ED after c/o to staff about her left knee hurting. notes to falling out of bed 1 month ago and since that time has been c/o pain. She had an xray which showed a tibia fracture and was sent to the ED for evaluation. patient is somewhat verbal if asking direct questions, but does not offer information. She notes to pain in the leg but states "yes" to multiple questions when asking location of pain. She is s/p humeral fixation as well. Bed bound. - History of Current Complaint Chief Complaint: EDExtremityLower Stated Complaint: LEFT LEG INJURY Time Seen by Provider: 10/09/17 14:04 Hx Obtained From: EMS Mechanism Of Injury: Other - fell out of bed Onset of Pain: Minutes Onset/Duration: Minutes Severity Initially: Moderate Severity Currently: Moderate Pain Intensity: 6 Pain Scale Used: 0-10 Numeric Timing: Constant Location: Is Discrete @ - left knee Associated Signs And Symptoms: Positive: Bruising Aggravating Factor(s): Nothing Able to Bear Weight: No - Allergies/Home Medications Allergies/Adverse Reactions: Allergies Allergy/AdvReac Type Severity Reaction Status Date / Time Metformin Allergy Unknown Verified 11/21/15 05:14 Reaction Details Oxycodone Allergy Unknown Verified 11/21/15 05:14 Reaction Details Propoxyphene Allergy Unknown Verified 11/21/15 05:14 Reaction Details PMH/Surg Hx/FS Hx/Imm Hx Previously Healthy: Yes Endocrine/Hematology History: Reports: Hx Diabetes Cardiovascular History: Reports: Hx Hypercholesterolemia, Hx Hypotension, Hx Hypertension, Other Cardiovascular Problems/Disorders - TIA/IDDM/ HYPERCHOLESTEROLEMIA GI History: Reports: Hx Gastroesophageal Reflux Disease, Hx Ulcer, Other GI Disorders - gastric ulcer Musculoskeletal History: Denies: Hx Arthritis, Hx Osteoporosis Sensory History: Comment Only: Hx Contacts or Glasses - unknown, Hx Hearing Aid - unknown Opthamlomology History: Comment Only: Hx Contacts or Glasses - unknown Neurological History: Reports: Hx CVA, Hx Transient Ischemic Attacks (TIA) Psychiatric History: Reports: Other Psychiatric Issues/Disorders - personality disorder, not otherwise specified - Immunization History Hx Pertussis Vaccination: No Immunizations Up to Date: Unable to Obtain/Confirm Infectious Disease History: No Infectious Disease History: Denies: Traveled Outside the [place] in Last 30 Days - Family History Known Family History: Positive: Other - lung cancer - father, cva - mother Family History: FHx no obtainable due to AMS - Social History Occupation: Disabled Lives: At [facility] Alcohol Use: Unknown Alcohol Amount: n/a d/t pt condition Hx Substance Use: No Substance Use Type: Reports: Other Substance Use Comment - Amount & Last Used: Unknown Hx Tobacco Use: No Smoking Status (MU): Unknown if Ever Smoked Review of Systems Constitutional: Negative Negative: Fever, Chills, Fatigue Cardiovascular: Negative Respiratory: Negative Positive: no symptoms reported, see HPI Positive: Arthralgia - left knee pain Neurological: Negative All Other Systems Reviewed And Are Negative: Yes Physical Exam Triage Information Reviewed: Yes Vital Signs On Initial Exam: Initial Vitals Temp Pulse Resp BP Pulse Ox 98.2 F 95 20 98/54 97 10/09/17 14:11 10/09/17 14:11 10/09/17 14:11 10/09/17 14:11 10/09/17 14:11 Vital Signs Reviewed: Yes Appearance: Positive: Obese Skin: Positive: Other - pale skin Head/Face: Positive: Normal Head/Face Inspection Eyes: Positive: EOMI, OBDULIO, Conjunctiva Clear Neck: Positive: Nontender, No Lymphadenopathy Respiratory/Lung Sounds: Positive: Clear to Auscultation, Breath Sounds Present Cardiovascular: Positive: RRR, Pulses are Symmetrical in both Upper and Lower Extremities Musculoskeletal: Negative: Lokesh Sign Left, Lokesh Sign Right, Edema Left, Edema Right Psychiatric: Positive: Normal AVPU Assessment: Verbal (Reponds To) - [place] Coma Scale Coma Scale Total: 15 Diagnostics - Vital Signs Vital Signs Temp Pulse Resp BP Pulse Ox 10/09/17 14:11 98.2 F 95 20 98/54 97 - Laboratory Lab Statement: Any lab studies that have been ordered have been reviewed, and results considered in the medical decision making process. Lower Extremity Course/Dx - Course Course Of Treatment: During the course of treatment, patient is sent to xray of the left leg. IMPRESSION: NONDISPLACED TRANSVERSE FRACTURE THROUGH THE PROXIMAL TIBIA. Marked osteopenia. Bed boun. Verbal, but limited. Stroke causing hemiplegia. Dr. Nirav bañuelos who suggests a long cast and follow up. Knee immobilizer fit up to the buttocks and just proximal to the ankle She is on tylenol for pain. She appears in no acute distress and at this time I do not think she requires pain medication. She will follow up and medicab called back to [facility]. - Diagnoses Provider Diagnoses: Fracture of proximal end of tibia Discharge - Discharge Plan Condition: Stable Disposition: HOME Patient Education Materials: Leg Fracture (ED) Referrals: Yony Fernandez MD [Primary Care Provider] - Duncan Gastelum MD [Medical Doctor] - Additional Instructions: Tylenol 650mg three times daily as needed for pain Follow up with ortho next week I have given you a referral Keep the brace on at all times until follow up
== END 2017-10-09 18:11 | disposition home or self-care (01) ==
LOC: ED 13:58
DX: S82.192A Other fracture of upper end of left tibia, initial encounter for closed fracture (principal); W06.XXXA Fall from bed, initial encounter; Y93.9 Activity, unspecified; M85.862 Other specified disorders of bone density and structure, left lower leg; I69.354 Hemiplegia and hemiparesis following cerebral infarction affecting left non-dominant side
CPT/HCPCS: 99282

== ENCOUNTER 2019-08-23 08:43 | Inpatient (IN) | payer MEDICARE ==
[2019-08-23] MEDS ORDERED: Acetaminophen SUPP* 650 MG SUPP ONE (08:51)
[2019-08-23] MEDS ORDERED: Acetaminophen SUPP* 650 MG SUPP PR ONE (09:02)
[2019-08-23] MEDS ORDERED: Piperacillin/Tazobac ADVAN(*) 3.375 GM in NS 0.9% 100 ML* 100 ML IVPB ONE (09:03)
--- NOTE | 2019-08-23 09:03 | ED ---
Altered Mental Status - HPI Summary HPI Summary: Pt is a 68 y/o F presenting to the ED brought in by EMS for altered mental status. LEVEL 5 CAVEAT: Pts full hx and physical is unobtainable d/t AMS. REviewed records, long term MAR, and d/w EMS. Per EMS, the pts temperature at [facility] was 102 degrees Fahrenheit. She has a chronic wound on her R heel that the nurse at [facility] said looked infected as of 08/19/19. No treatment change initiated per EMS. Today, nursing staff found her mostly unresponsive but will occasionally move her arm with purpose. No obvious pain. Per pts MAR, pt receives Tylenol daily but did not receive it today, she is a diabetic, not on any cardiac medication. Pt with baseline left side hemiparesis. Takes Tramadol - no narocotic patch noted, [facility] states a DNR/ DNI. other inteventions okay. Rectal temperature in room is 101.4. Patient's medications reviewed. - History Of Current Complaint Chief Complaint: EDGeneral Stated Complaint: UNRESPOSINVE Time Seen by Provider: 08/23/19 08:45 Hx Obtained From: EMS, Medical Records Hx From Patient Unobtainable Due To: Altered Mental Status Onset/Duration: Still Present, Gradually Timing: Constant, Lasting Hours Severity Initially: Moderate Severity Currently: Moderate Character: Responsiveness Aggravating Factor(s): Unknown Alleviating Factor(s): Nothing Associated Signs And Symptoms: Positive: Negative - Allergies/Home Medications Allergies/Adverse Reactions: Allergies Allergy/AdvReac Type Severity Reaction Status Date / Time MS Metformin [Metformin] Allergy Unknown Verified 11/21/15 05:14 Reaction Details MS Oxycodone [Oxycodone] Allergy Unknown Verified 11/21/15 05:14 Reaction Details MS Propoxyphene Allergy Unknown Verified 11/21/15 05:14 [Propoxyphene] Reaction Details Home Medications: Home Medications Aspirin EC TAB* [Ecotrin EC TAB*] 325 mg PO DAILY 08/23/19 [History Confirmed ] Cholecalciferol TAB* [Vitamin D TAB*] 50,000 units PO MONTHLY 08/23/19 [History Confirmed 08/23/19] Collagenase 250 UNITS/GM OINT* [Santyl 250 UNITS/GM Oint*] 1 applic TOPICAL DAILY 08/23/19 [History Confirmed 08/23/19] Omeprazole CAP (NF) [Prilosec CAP* 20 MG] 20 mg PO DAILY 08/23/19 [History Confirmed 08/23/19] Senna/Docusate (NF) [Sennokot-S] 2 tab PO BID PRN 08/23/19 [History Confirmed ] PMH/Surg Hx/FS Hx/Imm Hx Previously Healthy: No - LEVEL 5 CAVEAT Endocrine/Hematology History: Reports: Hx Diabetes Cardiovascular History: Reports: Hx Hypercholesterolemia, Hx Hypotension, Hx Hypertension, Other Cardiovascular Problems/Disorders - TIA/IDDM/ HYPERCHOLESTEROLEMIA GI History: Reports: Hx Gastroesophageal Reflux Disease, Hx Ulcer, Other GI Disorders - gastric ulcer Musculoskeletal History: Denies: Hx Arthritis, Hx Osteoporosis Sensory History: Comment Only: Hx Contacts or Glasses - unknown, Hx Hearing Aid - unknown Opthamlomology History: Comment Only: Hx Contacts or Glasses - unknown Neurological History: Reports: Hx CVA, Hx Transient Ischemic Attacks (TIA) Psychiatric History: Reports: Other Psychiatric Issues/Disorders - personality disorder, not otherwise specified Infectious Disease History: No Infectious Disease History: Denies: Traveled Outside the [place] in Last 30 Days - Family History Known Family History: Positive: Other - lung cancer - father, cva - mother Family History: FHx no obtainable due to AMS - Social History Alcohol Use: Unknown Alcohol Amount: LEVEL 5 CAVEAT Hx Substance Use: No Substance Use Type: Reports: Other Substance Use Comment - Amount & Last Used: LEVEL 5 CAVEAT Hx Tobacco Use: No Smoking Status (MU): Unknown if Ever Smoked Review of Systems - ROS Summary Review of Systems Summary: LEVEL 5 CAVEAT: Pts full hx and physical is unobtainable d/t AMS Positive: Fever All Other Systems Reviewed And Are Negative: No Physical Exam - Summary Physical Exam Summary: Vital Signs Reviewed: Yes - rectal temp arousable but not-coversant - localizes pain intermittently Eyes: Conjunctiva Clear, OBDULIO. EOM intact and full ENT: \TM x 2 clear, mm dry and pasty. no exudate, no erythema Neck: Positive: Supple Respiratory: Positive: No respiratory distress, No accessory muscle use + CTA throughout no w/r Cardiovascular: RRR, tachycardia, nl s1, s2 no m/r CBT <2 sec abd soft + BS nt/nd no guarding, no distension Musculoskeletal Exam: LUE hemiparesis (baseline per records) noted to move RUE , LUE Neurological: Positive: not alert - not baseline per records Psychological: Positive: localized pain Skin: Positive: right heal - pt with 3cm x 3cm eschar wound with malodor, scant drainage Triage Information Reviewed: Yes Vital Signs On Initial Exam: Initial Vitals Temp Pulse Resp BP Pulse Ox 101.4 F 113 15 116/73 95 08/23/19 08:46 08/23/19 08:46 08/23/19 08:46 08/23/19 08:46 08/23/19 08:46 Vital Signs Reviewed: Yes Procedures - Sedation Patient Received Moderate/Deep Sedation with Procedure: No Diagnostics - Vital Signs Vital Signs Temp Pulse Resp BP Pulse Ox 08/23/19 08:46 101.4 F 113 15 116/73 95 - Laboratory Result Diagrams: 08/23/19 09:22 08/23/19 09:22 Lab Statement: Any lab studies that have been ordered have been reviewed, and results considered in the medical decision making process. - Radiology CXR Radiology Interpretation Completed By: Radiologist Summary of Radiographic Findings: No active cardiopulmonary disease is noted. ED physician has reviewed this report. Foot XR Radiology Interpretation Completed By: Radiologist Summary of Radiographic Findings: SOFT TISSUE SWELLING, NO SPECIFIC EVIDENCE FOR OSTEOMYELITIS. IF THERE IS A HIGH CLINICAL INDEX OF SUSPICION FOR OSTEOMYELITIS CONSIDER AN MRI STUDY WITHOUT CONTRAST OR A THREE-PHASE BONE SCAN. ED physician has reviewed this report. - EKG 0909 Cardiac Rate: Tachycardia - 108bpm EKG Rhythm: Sinus Tachycardia ST Segment: Normal Ectopy: None Summary of EKG Findings: EKG at 0909 shows sinus tachycardia at 108bpm with no ST/T-wave changes and no STEMI. ED physician has reviewed and interpreted this EKG. 0950 Cardiac Rate: Tachycardia - 103bpm EKG Rhythm: Sinus Tachycardia ST Segment: Normal Ectopy: None Summary of EKG Findings: EKG at 0950 shows sinus tachycardia at 103bpm with no acute changes from prior EKG. ED physician has reviewed and interpreted this EKG. Re-Evaluation - Re-Evaluation 1st re-eval Re-Evaluation Time: 09:50 Change: Unchanged Comment: I was called to the pts bed because she was tachycardic. Pt appeared to be in SVT with a rate 140-150, narrow. Pt with coarse cough. While setting up for EKG, pt converted back to NSR. SVT captured on tele.strip - labelled and placed on chart. BP and sats wnl. awaiting labs, anticipate admission Altered Mental Statu Course/Dx - Course Course Of Treatment: Patient presents to urgent care with mental status change from [facility]. Patient is a 68 a woman with left-sided hemiplegia. Patient was transferred by EMS after noting to have mental status changes at the nursing facility today. Patient noted to have a rectal temperature. On exam patient is unable to participate in her history of physical. Patient doesn't hear extremely dry. Patient does have dry mucous membranes. Patient has a large eschar wound on her right heel concerning for infection and possibly osteomyelitis. I assisted the nurse placing a Frazier and the patient has thick turbulent burroughs appearing urine with sediment. Will start sepsis protocol. Rectal urine given, fluids ordered and abx. Will take culture from foot. Anticipate admission. reviewed [facility] - Diagnoses Provider Diagnoses: Change in mental status, Hypernatremia, Dehydration, Acute renal failure, UTI ( urinary tract infection), Wound of right foot, Sepsis - Provider Notifications Instructed by Provider To: Admit As Inpatient - Critical Care Time Critical Care Time: 30-74 min Discharge ED - Sign-Out/Discharge Documenting (check all that apply): Patient Departure - Discharge Plan Condition: Stable Disposition: ADMITTED TO [facility] Referrals: Lucía Conrad NP [Nurse Practitioner] - - Billing Disposition and Condition Condition: STABLE Disposition: Admitted to [facility] - Attestation Statements Document Initiated by Scribe: Yes Documenting Scribe: Maia Benoit Provider For Whom Brittney is Documenting (Include Credential): Tamara Grimes MD. Scribe Attestation: Maia Saravia, scribed for Tamara Grimes MD. on 08/23/19 at 1022. Scribe Documentation Reviewed: Yes Provider Attestation: The documentation as recorded by the Maia mittal accurately reflects the service I personally performed and the decisions made by me, Tamara Grimes MD. Status of Scribe Document: Viewed Consult Consult: 1013 - I spoke with Dr. Rodarte who [place] be [place] [facility] [place]
[2019-08-23] MEDS ORDERED: NS 0.9% 1000 ML** 1,000 ML IV ONE (09:04)
[2019-08-23 09:20] LABS: Urine Appearance Turbid; Urine Bacteria 3+ (Absent); Urine Bilirubin Negative (Negative); Urine Blood 3+ (Negative); Urine Color Yellow; Urine Glucose 3+(>=500 mg/dL) (Negative); Urine Ketones Negative (Negative); Urine Nitrite Negative (Negative); Urine Protein 2+(100 mg/dL) (Negative); Urine Red Blood Cell 3+(>10/hpf) (Absent); Urine Specific Gravity 1.014 (1.010-1.030); Urine Squamous Epithelial Cell Present (Absent); Urine Urobilinogen Negative (Negative); Urine White Blood Cell 3+(>20/hpf) (Absent)
[2019-08-23 09:39] LABS: ABS Monocytes 1.1 10^3/ul (0-0.8); ABS Neutrophils 15.1 10^3/ul (1.5-7.7); Eosinophil % 0.1 %; Hematocrit 41 % (35-47); Hemoglobin 12.9 g/dL (12.0-16.0); Lymphocyte % 11.1 %; Mean Corpuscular HGB Conc 32 g/dL (31-36); Mean Corpuscular Hemoglobin 30 pg (27-31); Mean Corpuscular Volume 95 fL (80-97); Mean Platelet Volume 9.7 fL (7.4-10.4); Platelet Count 258 10^3/uL (150-450); Red Blood Count 4.33 10^6 /uL (3.70-4.87); Red Cell Distribution Width 15 % (10-15); White Blood Count 18.3 10^3/uL (3.5-10.8)
[2019-08-23 09:48] LABS: Activated Partial Thrombo Time 31.5 seconds (26.0-38.0); INR 1.08 (0.82-1.09)
[2019-08-23 09:56] LABS: ALT 13 U/L (7-52); AST 13 U/L (13-39); Albumin 3.4 g/dL (3.2-5.2); Alkaline Phosphatase 55 U/L (34-104); BUN/Creatinine Ratio 37.6 (8-20); Blood Urea Nitrogen 82 mg/dL (6-24); CO2 Carbon Dioxide 28 mmol/L (22-32); Calcium 9.4 mg/dL (8.6-10.3); Creatine Kinase 24 U/L (10-223); EGFR African American 27.1 (>60); EGFR Non-African American 22.4 (>60); Globulin 3.4 g/dL (2-4); Glucose 409 mg/dL (70-100); Magnesium 2.1 mg/dL (1.9-2.7); Total Protein 6.8 g/dL (6.4-8.9)
[2019-08-23 10:04] LABS: Anion Gap 10 mmol/L (2-11); Chloride 120 mmol/L (101-111); Sodium 158 mmol/L (135-145); Troponin I 0.07 ng/mL (<0.04)
[2019-08-23] MEDS ORDERED: NS 0.9% 1000 ML** 1,000 ML IV SCH ×2 (10:15→11:45)
[2019-08-23] MEDS ORDERED: Morphine INJ* 2 MG/ML 1 ML SYRINGE (TWO MG - NEW SYRINGE VERSION) IV PRN (11:42)
[2019-08-23] MEDS ORDERED: Dextrose 50% VIAL 50 ml IV PUSH PRN (11:44)
[2019-08-23] MEDS ORDERED: Insulin GLARGINE(*) 1 UNITS UNIT SUBCUT ONE ×3 (11:50→17:54)
[2019-08-23] MEDS ORDERED: Acetaminophen SUPP* 650 MG SUPP PR PRN (11:52)
[2019-08-23] MEDS ORDERED: Insulin LISPRO* 1 UNITS UNIT SUBCUT SCH (12:00)
[2019-08-23] MEDS ORDERED: Vancomycin per Pharmacy* NOTE FOLLOW UP SCH (12:00)
[2019-08-23] MEDS: Pantoprazole IV* 40 MG IV SCH (12:18)
[2019-08-23 12:49] LABS: BUN/Creatinine Ratio 39.3 (8-20); Calcium 8.9 mg/dL (8.6-10.3); EGFR African American 30.6 (>60); EGFR Non-African American 25.3 (>60)
[2019-08-23 12:58] LABS: Troponin I 0.07 ng/mL (<0.04)
[2019-08-23] MEDS ORDERED: Metoprolol Tartrate IV* 1 MG/ML 5 ML VIAL IV SCH (13:00)
[2019-08-23] MEDS ORDERED: Vancomycin(*) 1,250 MG in NS 0.9% 250 ML* 250 ML IVPB ONE (13:00)
[2019-08-23] MEDS ORDERED: NS 0.9% 250 ML* 250 ML IV ONE (13:04)
[2019-08-23] MEDS: Heparin VIAL(*) 5000 UNITS/ML VIAL (FIVE THOUSAND) SUBCUT SCH ×2 (13:33→23:33)
[2019-08-23] MEDS ORDERED: NS 0.45% 1000 ML BAG* 1,000 ML IV SCH (14:00)
--- NOTE | 2019-08-23 14:32 | HP ---
CC: Dr. Sood; Lucía Conrad; Dr. Neo Erazo - [facility] * HISTORY AND PHYSICAL: DATE OF ADMISSION: 08/23/19 PRIMARY CARE PROVIDER: Dr. Sood as well as Lucía Conrad; Dr. Neo Erazo CHIEF COMPLAINT: Unresponsiveness. HISTORY OF PRESENT ILLNESS: Reanna Cunningham is a 68-year-old female with history of left-sided hemiplegia due to CVA, dysphagia secondary to her stroke who is a resident at [facility] and who presented with marked lethargy, waking up to voice with opening eyes and currently nonverbal. Apparently, recently the patient was treated for E. coli UTI. I do not have any further details of the patient's behavior in the past couple of days apart from that that she has been having problems with chronic right heel wound for which she had been receiving wound care regularly at [facility]. The patient was noted to have severe hypernatremia and sepsis likely due to UTI. The right heel has a marked area of necrosis and foul smelling eschar. The patient is otherwise nonverbal and not able to give me any information. The medical information that I could obtain from medical records is very scant. PAST MEDICAL HISTORY: 1. History of CVA with left-sided hemiplegia. The patient is a 2-person with assist and basically bed bound at [facility]. She has also subsequent dysphagia and needs to be fed with nectar thick liquids. 2. Diabetes type 2, insulin dependent. 3. Hypertension. 4. Dyslipidemia. 5. Gastroesophageal reflux disease. 6. Further undefined personality disorder. HOME MEDICATIONS: Include: 1. Santyl ointment, applied to the right heel daily. 2. Insulin Lantus 8 units daily. 3. Lispro 6 units with each meal 3 times a day. 4. Omeprazole 20 mg daily. 5. Vitamin D3 50,000 units monthly. 6. Aspirin 325 mg daily. 7. Acetaminophen on a p.r.n. basis. 8. Gabapentin 200 mg b.i.d. 9. Ultram 50 mg b.i.d. p.r.n. 10. Senokot-S 2 tablets b.i.d. p.r.n. ALLERGIES: Include METFORMIN, OXYCODONE, PROPOXYPHENE. FAMILY HISTORY: Unobtainable from the patient. SOCIAL HISTORY: The patient is a resident at [facility]. She is bed bound, and as per nursing notes, incontinent of bowel and bladder. From previous medical records, the patient at baseline perseverates and is not able to communicate clearly, but is verbal. From nursing notes from [facility], I am unable to get information about her verbal communications in the recent past. Her healthcare proxy is her friend, Lay Dempsey, phone number [phone]. The patient is do not resuscitate, do not intubate and do not place a feeding tube and MOLST orders were signed in the past. REVIEW OF SYSTEMS: Unobtainable. PHYSICAL EXAMINATION GENERAL: The patient is 68-year-old female who is lying in bed, appears in no acute distress. The patient is nonverbal. She opens her eyes to command and she is not able to follow commands. VITAL SIGNS: Blood pressure of 150/78, heart rate of 106 and regular, respiratory rate 14, oxygen saturation 94% on room air, temperature 101.4 rectally. HEENT: Head: Atraumatic and normocephalic. Eyes: Pupils are equal and reactive to light and accommodation. Oropharynx clear. Mucosa dry. NECK: Supple. No JVD. No bruits bilaterally. RESPIRATORY: Coarse rhonchi in bilateral upper lungs, otherwise distant breath sounds and poor air entry in bilateral lower lungs. CARDIOVASCULAR: Regular rate and rhythm. Mo murmurs. ABDOMEN: Protuberant, soft, nontender. Bowel sounds present in all 4 quadrants. EXTREMITIES: There is no edema. Pulses are +2 bilaterally. There is no clubbing or cyanosis. NEURO EVALUATION: The patient's face appears to be symmetrical, but then she is not following commands. She appears to have a contracted left hand. Babinski's are not able to be obtained bilaterally. She is able to grasp the examiner's hand with her right hand, but it does not appear to be voluntary and not on command. PSYCHIATRIC EVALUATION: The patient is nonverbal, merely responds to voice with eye opening. SKIN: The patient has right medial aspect of the heel area of black necrotic tissue, foul smelling, approximately 5 cm in diameter, circular. There is also unstageable and tissue necrosis on top. DIAGNOSTIC STUDIES/LAB DATA: White blood cell count of 18.3, hemoglobin 12.9, hematocrit 41, and platelets 258. Sodium is 158, potassium 1.0, chloride 120, carbon dioxide 28, anion gap of 10, BUN 82, creatinine 2.18 with a baseline creatinine of this patient at 1.3 to 1.4 in the past. Troponin of 0.07. C-reactive protein of 13.7. Urinalysis was grossly positive for +2 protein, +3 blood. Leukocyte esterase, wbc's, rbc's, bacteria, yeast, glucose, ascorbic acid all of those were positive. The patient had a Frazier placed in the emergency department. The patient's EKG showed sinus tachycardia with a heart rate of 80 beats per minute with left anterior fascicular block. Portable chest x-ray, impression: "No evidence for active cardiopulmonary disease." Foot x-ray on the right, impression: "Soft tissue swelling, no specific evidence of osteomyelitis. If there is a high clinical index of suspicion for osteomyelitis, consider an MRI study without contrast or a 3-phase bone scan." Please also note that during the telemetry monitoring in the emergency department, the patient had a brief period of SVT that spontaneously resolved. The patient appeared to be asymptomatic during that time, but then she is very lethargic and difficult to assess. The patient's ABG is pending at the time of dictation. The patient's lactic acid was 1.2. ASSESSMENT AND PLAN: 1. The patient is septic. The likely source of the sepsis is urinary tract infection, although the right foot also appears to be possibly chronic osteomyelitis. She is going to be treated with broad-spectrum antibiotics including ceftriaxone and vancomycin. In regards to her urine testing, the urinalysis was obtained. Urine cultures are pending. 2. For right heel ulcer, possibility of osteomyelitis, I talked to Dr. Gabriel who will see the patient in consultation. An MRI was recommended and we will likely obtain it tomorrow when the patient is hopefully feeling better and her laboratory values are more stable. We will also obtain arterial Dopplers of the right leg. 3. For the patient's hypernatremia and hyperchloremia, it is likely related to severe dehydration. The patient has dysphagia at baseline and I suspect she has not been able to take p.o. for quite some time. On her MOLST form, it was indicated the patient wished not to have any feeding tubes. At this point, we will continue the patient with intravenous hydration with normal saline. I suspect that she may just require normal saline at this point. Repeat basic metabolic panel was pending at the time of dictation to evaluate it further. 4. The patient's rare episode of supraventricular tachycardia and subsequent elevation of troponin of 0.07 is likely due to demand ischemia. Her magnesium was 2.1 which is within normal limits and her potassium was also not abnormal. We will observe the patient on telemetry monitored bed and continue checking troponins. 4. The patient has uncontrolled diabetes. The patient is going to be continued on insulin Lantus on a daily basis and insulin sliding scale with fingersticks every 6 hours. 5. The patient's code status is do not resuscitate and do not intubate and no feeding tube. I contacted her healthcare proxy and left a message for her to call me back to confirm that. For the time being, the patient is going to have 24-hour out of hospital DNR in place. 6. The patient has history of severe dysphagia and basically now she is not able to of follow commands. Due to this, Speech Therapy will evaluate the patient tomorrow. For the time being, she is going to be n.p.o. and Protonix intravenously is going to be placed for the patient for a history of gastroesophageal reflux disease and for GI prophylaxis was n.p.o. 7. For DVT prophylaxis, the patient is going to be placed on heparin subcutaneously. TIME SPENT: Approximately 72 minutes were spent on admission of this patient, more than half that time was spent [id number] with the patient in the ED room in evaluation. [id number]/[facility] #: [id number] DEVON
--- NOTE | 2019-08-23 15:53 | CONSULT ---
Subjective Date of Service: 08/23/19 Interval History: Ms. Cunningham is a 68 yo female with PMH significant for CVA with left sided hemiplegia, dysphagia requiring nectar thick liquids, DM2, HTN, HLD, GERD, undefined personality disorder, diabetic neuropathy, and chronic pain; who presented to the hospital for unresponsiveness. She was admitted to the hospital for sepsis secondary to a UTI and possible osteomyelitis. Presented to the hospital with a known ulcer to the right heel. She lives at [facility] and it appears this wound has been present since at least mid June 2019. The wound is treated by washing with saline, Applying Santyl daily, followed by a foam dressing, and rolled gauze. They are keeping the heel off the bed. Patient seen and examined at bedside. Family History: Unchanged from Admission Social History: Unchanged from Admission Past Medical History: Unchanged from Admission Review of Systems - Measurements Intake and Output: Intake and Output Last 24 Hours 08/21/19 08/22/19 08/23/19 08/24/19 06:59 06:59 06:59 06:59 Intake Total 2529 Output Total 5 Balance 2524 Weight 156 lb 4.924 oz Intake: IV Fluids 2185 ABX - VANCOMYCIN 85 IVPB 344 NS (0.9%) 344 Oral 0 Output: Frazier 5 - Review of Systems General Comments: Difficult to perform ROS as Pt is mostly nonverbal and speech is difficult to understand. Endocrinology: Positive: Diabetes Mellitus Objective Active Medications: Acetaminophen (Tylenol Supp*) 650 mg NJ Q6H PRN Reason: TEMPERATURE > 100.4 Collagenase (Santyl 250 Units/Gm Oint*) 1 applic TOPICAL DAILY [facility] Dextrose (Dextrose 50% Vial 50 Ml*) 25 ml IV PUSH .FOR FS < 60 - SS PRN Reason : FS < 60 Heparin Sodium (Porcine) (Heparin Vial(*)) 5,000 units SUBCUT Q8HR [facility] Ceftriaxone Sodium 1 gm/ (Sodium Chloride) 50 mls @ 100 mls/hr IVPB Q24H [facility] Sodium Chloride (Ns 0.45% 1000 Ml Bag*) 1,000 mls @ 125 mls/hr IV PER RATE [facility] Insulin Glargine (Lantus(*)) 8 units SUBCUT 0800 [facility] Insulin Human Lispro (Humalog*) 0 units SUBCUT Q4HR [facility]; Protocol Metoprolol Tartrate (Lopressor Iv*) 5 mg IV Q6H COUNTS INCLUDE 234 BEDS AT THE [facility] Morphine Sulfate (Morphine Inj (Syringe))*) 1 mg IV Q4H PRN Reason: PAIN - MILD Pantoprazole Sodium (Protonix Iv*) 40 mg IV DAILY COUNTS INCLUDE 234 BEDS AT THE [facility] Pharmacy Consult (Vancomycin Per Pharmacy*) 1 note FOLLOW UP .VANC PER PHARMACY COUNTS INCLUDE 234 BEDS AT THE [facility]; Protocol Pharmacy Consult (Vancomycin Random Level*) 1 note FOLLOW UP 0600 ONE Vital Signs 08/23/19 08/23/19 08/23/19 12:36 12:56 13:00 Temperature 97.1 F 98.9 F Pulse Rate 81 87 144 Respiratory 17 25 Rate Blood Pressure 123/65 111/74 123/65 (mmHg) O2 Sat by Pulse 99 98 99 Oximetry Oxygen Devices in Use Now: Nasal Cannula Appearance: NAD, laying in bed Ears/Nose/Mouth/Throat: Mucous Membranes Moist Respiratory: Symmetrical Chest Expansion and Respiratory Effort Extremities: No Edema, - - 1+ DP pulses bilateral Skin: - - See skin note below Neurological: - - Drowsy, unable to determine orientation Result Diagrams: 08/25/19 04:30 08/25/19 04:30 Additional Lab and Data: Above labs were pulled into the note, when the note was edited prior to signing. Please see below for labs from day of consultation. Laboratory Tests 08/23/19 08/23/19 08/23/19 09:22 09:22 09:22 WBC 18.3 H Hgb 12.9 Hct 41 Plt Count 258 ESR 63 H Sodium Potassium Chloride Carbon Dioxide BUN Creatinine Glucose C-Reactive Protein 13.71 H 08/23/19 12:20 WBC Hgb Hct Plt Count ESR Sodium 158 H* Potassium 4.0 Chloride 124 H Carbon Dioxide 26 BUN 77 H Creatinine 1.96 H Glucose 410 H C-Reactive Protein Diagnostic Imagin. Exam Date: 08/23/19 1210 - VL ANK/BRACHIAL INDICES FINDINGS: The study is technically limited secondary to patient condition. Right: The posterior tibial ankle brachial index is not calculable. The dorsalis pedis ankle brachial index is not calculable The posterior tibial waveform is absent. The dorsalis pedis waveform is monophasic. Left: The posterior tibial ankle brachial index is not detectable. The dorsalis pedis ankle brachial index is not calculable. The posterior tibial waveform is absent. The dorsalis pedis waveform is absent. IMPRESSION: TECHNICALLY LIMITED STUDY. THERE IS MINIMAL ARTERIAL FLOW NOTED WITHIN THE RIGHT DORSALIS PEDIS ARTERY. NO FLOW IS NOTED WITHIN THE RIGHT POSTERIOR TIBIAL OF THE LEFT POSTERIOR TIBIAL OR DORSALIS PEDIS ARTERIES. THIS IS CONSISTENT WITH SEVERE BILATERAL PERIPHERAL ARTERIAL OCCLUSIVE DISEASE. 2. Exam Date: 08/23/1910 - FOOT RIGHT 2 VWS IMPRESSION: SOFT TISSUE SWELLING, NO SPECIFIC EVIDENCE FOR OSTEOMYELITIS. IF THERE IS A HIGH CLINICAL INDEX OF SUSPICION FOR OSTEOMYELITIS CONSIDER AN MRI STUDY WITHOUT CONTRAST OR A THREE-PHASE BONE SCAN. Skin Deviation Note - Skin Deviation Findings Right heel - There is an ulcer, measures 3.5 cm x 3.5 cm x 0.1 cm. The wound base is 100% dry eschar. The heel is boggy. There is no draiange. The surrounding skin is slightly macerated with mild erythema. Wound Problem/Plan Assessment: Ms. Cunningham is a 68 yo female with PMH significant for CVA with left sided hemiplegia, dysphagia requiring nectar thick liquids, DM2, HTN, HLD, GERD, undefined personality disorder, diabetic neuropathy, and chronic pain; who presented to the hospital for unresponsiveness. She was admitted to the hospital for sepsis secondary to a UTI and possible osteomyelitis. Presented to the hospital with a known ulcer to the right heel. 1. Unstageable ulcer to the left heel, suspect secondary to pressure. This may also be multifactoral in the setting of DM2, peripheral neuropathy, and abnormal ABIs. Xray with possible osteomyelitis. Suspect there is underlying osteomyelitis. Recommend MRI when she is able to have one to evaluate for osteomyelitis (ordered for tomorrow). CRP elevated on admission at 13.71. Recommend applying Santyl to the area of eschar, followed by foam dressing if available (if unavailable apply telfa), and rolled gauze, change daily. Keep heels elevated off the bed, use multipodus boots, Spankos and pillows and rotate what is being used. This may require surgical debridement in the future. 2. DM2 with peripheral neuropathy. HgA1C 7.2 in May 2019. Maintain good glycemic control to allow for wound healing. 3. Diet. NPO 4. Code Status. DNR. 5. Disposition. Inpatient, disposition per primary medicine team. TIME SPENT: Time for this wound consultation was 25 minutes and 15 minutes was spent at bedside removing the old dressing; assessing, measuring, and photographing the wound; and reapplying a new dressing. Is Patient a Wound Clinic Patient: No Comment: Treated at [facility] Attending: Loretta Suarez
[2019-08-23 17:46] LABS: BUN/Creatinine Ratio 38.5 (8-20); Calcium 8.7 mg/dL (8.6-10.3); EGFR African American 32.3 (>60); EGFR Non-African American 26.7 (>60); Potassium 3.7 mmol/L (3.5-5.0)
[2019-08-23] MEDS ORDERED: D5W 500 ML BAG* 500 ML IV ONE (18:00)
[2019-08-23] MEDS: D5W 1000 ML BAG* 1,000 ML IV SCH ×3 (18:07→22:46)
[2019-08-23] MEDS: cefTRIAXone(*) 1 GM in NS 0.9% 50 ML* 50 ML IVPB SCH (18:09)
[2019-08-23] MEDS: Metoprolol Tartrate IV* 1 MG/ML 5 ML VIAL IV SCH ×2 (18:21→23:30)
[2019-08-23] MEDS: Insulin LISPRO* 1 UNITS UNIT SUBCUT SCH ×3 (18:34→20:42)
[2019-08-23] MEDS ORDERED: D5W 1/2 NS 1000 ML BAG* 1,000 ML IV ONE (21:00)
[2019-08-23 21:42] LABS: Urine Appearance Cloudy; Urine Bacteria 3+ (Absent); Urine Bilirubin Negative (Negative); Urine Blood 1+ (Negative); Urine Color Yellow; Urine Glucose 1+(50 mg/dL) (Negative); Urine Granular Casts Present (Absent); Urine Ketones Negative (Negative); Urine Nitrite Negative (Negative); Urine Protein 1+(30 mg/dL) (Negative); Urine Red Blood Cell 3+(>10/hpf) (Absent); Urine Specific Gravity 1.017 (1.010-1.030); Urine Squamous Epithelial Cell Present (Absent); Urine Urobilinogen Negative (Negative); Urine White Blood Cell 3+(>20/hpf) (Absent)
[2019-08-23 22:45] LABS: BUN/Creatinine Ratio 39.2 (8-20); Calcium 7.9 mg/dL (8.6-10.3); EGFR African American 37.1 (>60); EGFR Non-African American 30.6 (>60); Potassium 3.5 mmol/L (3.5-5.0)
[2019-08-24] MEDS ORDERED: NS 0.9% 1000 ML** 1,000 ML IV ONE
[2019-08-24] MEDS: Insulin LISPRO* 1 UNITS UNIT SUBCUT SCH ×6 (00:14→23:53)
[2019-08-24] MEDS ORDERED: Metoprolol Tartrate IV* 1 MG/ML 5 ML VIAL IV PRN (00:22)
[2019-08-24 02:33] LABS: BUN/Creatinine Ratio 41.4 (8-20); Calcium 7.6 mg/dL (8.6-10.3); EGFR African American 45.1 (>60); EGFR Non-African American 37.3 (>60); Potassium 3.4 mmol/L (3.5-5.0)
[2019-08-24] MEDS ORDERED: KCL 20 MEQ/100 ML IVPREMIX* 20 MEQ/100 ML BAG IV ONE (03:00)
[2019-08-24] MEDS: D5W 1000 ML BAG* 1,000 ML IV SCH (05:45)
[2019-08-24] MEDS ORDERED: Vancomycin Random Level* NOTE FOLLOW UP ONE (06:00)
[2019-08-24] MEDS: Heparin VIAL(*) 5000 UNITS/ML VIAL (FIVE THOUSAND) SUBCUT SCH ×3 (06:17→21:18)
[2019-08-24 06:33] LABS: ABS Eosinophils 0.3 10^3/ul (0-0.6); ABS Lymphocytes 1.4 10^3/ul (1.0-4.8); ABS Monocytes 0.7 10^3/ul (0-0.8); ABS Neutrophils 11.7 10^3/ul (1.5-7.7); Hematocrit 33 % (35-47); Hemoglobin 10.3 g/dL (12.0-16.0); Lymphocyte % 9.8 %; Mean Corpuscular HGB Conc 32 g/dL (31-36); Mean Corpuscular Hemoglobin 30 pg (27-31); Mean Corpuscular Volume 95 fL (80-97); Mean Platelet Volume 9.5 fL (7.4-10.4); Platelet Count 201 10^3/uL (150-450); Red Blood Count 3.45 10^6 /uL (3.70-4.87); Red Cell Distribution Width 15 % (10-15); White Blood Count 14.1 10^3/uL (3.5-10.8)
[2019-08-24 06:48] LABS: BUN/Creatinine Ratio 42.9 (8-20); Calcium 7.8 mg/dL (8.6-10.3); EGFR African American 54.4 (>60); Potassium 4.3 mmol/L (3.5-5.0)
[2019-08-24 06:58] LABS: Vancomycin Random 9.6 mcg/mL
[2019-08-24] MEDS: Pantoprazole IV* 40 MG IV SCH (08:40)
[2019-08-24] MEDS: Insulin GLARGINE(*) 1 UNITS UNIT SUBCUT SCH (08:40)
[2019-08-24] MEDS ORDERED: Collagenase 250 UNITS/GM OINT* 1 APPLIC OINT TOPICAL SCH (09:00)
--- NOTE | 2019-08-24 11:59 | PN ---
Subjective Date of Service: 08/24/19 Interval History: Pt is seen after she returned from MRI. She prefers to keep her eyes closed, limited verbal communication , but able to communicate that her feet hurt Family History: Unchanged from Admission Social History: Unchanged from Admission Past Medical History: Unchanged from Admission Objective Active Medications: Acetaminophen (Tylenol Supp*) 650 mg RI Q6H PRN PRN Reason: TEMPERATURE > 100.4 Last Admin: 08/24/19 04:16 Dose: 650 mg Collagenase (Santyl 250 Units/Gm Oint*) 1 applic TOPICAL DAILY [facility] Dextrose (Dextrose 50% Vial 50 Ml*) 25 ml IV PUSH .FOR FS < 60 - SS PRN PRN Reason: FS < 60 Heparin Sodium (Porcine) (Heparin Vial(*)) 5,000 units SUBCUT Q8HR [facility] Last Admin: 08/24/19 06:17 Dose: 5,000 units Ceftriaxone Sodium 1 gm/ (Sodium Chloride) 50 mls @ 100 mls/hr IVPB Q24H [facility] Last Admin: 08/23/19 18:09 Dose: 100 mls/hr Dextrose (D5w 1000 Ml Bag*) 1,000 mls @ 150 mls/hr IV PER RATE [facility] Last Admin: 08/24/19 05:45 Dose: 150 mls/hr Vancomycin HCl 1,000 mg/ (Sodium Chloride) 250 mls @ 166.667 mls/hr IV Q12H [facility] Insulin Glargine (Lantus(*)) 8 units SUBCUT 0800 [facility] Last Admin: 08/24/19 08:40 Dose: 8 unit Insulin Human Lispro (Humalog*) 0 units SUBCUT FS Q4 ICU [facility]; Protocol Last Admin: 08/24/19 08:41 Dose: 2 units Metoprolol Tartrate (Lopressor Iv*) 5 mg IV Q4H PRN PRN Reason: HR > 140 Morphine Sulfate (Morphine Inj (Syringe))*) 1 mg IV Q4H PRN PRN Reason: PAIN - MILD Pantoprazole Sodium (Protonix Iv*) 40 mg IV DAILY [facility] Last Admin: 08/24/19 08:40 Dose: 40 mg Pharmacy Consult (Vancomycin Per Pharmacy*) 1 note FOLLOW UP .VANC PER PHARMACY [facility]; Protocol Pharmacy Profile Note (Vancomycin Trough Check) 1 note FOLLOW UP 0930 ONE Stop: 08/25/19 09:31 Vital Signs - 8 hr 08/24/19 08/24/19 08/24/19 04:00 04:15 04:30 Pulse Rate 83 84 85 Respiratory 19 19 16 Rate Blood Pressure 127/59 127/65 109/54 (mmHg) O2 Sat by Pulse 97 96 98 Oximetry 08/24/19 08/24/19 08/24/19 04:45 05:00 05:15 Pulse Rate 87 82 85 Respiratory 21 15 18 Rate Blood Pressure 118/52 95/51 114/53 (mmHg) O2 Sat by Pulse 99 96 98 Oximetry 08/24/19 08/24/19 08/24/19 05:17 05:30 06:00 Pulse Rate 85 86 88 Respiratory 18 21 21 Rate Blood Pressure 122/55 123/59 124/59 (mmHg) O2 Sat by Pulse 98 97 98 Oximetry 08/24/19 08/24/19 08/24/19 06:31 07:00 07:30 Pulse Rate 86 85 88 Respiratory 21 16 27 Rate Blood Pressure 112/61 105/59 123/70 (mmHg) O2 Sat by Pulse 99 97 97 Oximetry 08/24/19 08/24/19 08/24/19 08:00 08:45 09:00 Pulse Rate 85 86 86 Respiratory 19 21 17 Rate Blood Pressure 118/58 129/92 137/56 (mmHg) O2 Sat by Pulse 99 96 97 Oximetry 08/24/19 10:00 Pulse Rate Respiratory 20 Rate Blood Pressure (mmHg) O2 Sat by Pulse Oximetry Oxygen Devices in Use Now: None Appearance: 68 yo F in nAD, aAOx1 Eyes: No Scleral Icterus, PERRLA Ears/Nose/Mouth/Throat: NL Teeth, Lips, Gums, Mucous Membranes Moist Neck: NL Appearance and Movements; NL JVP, Trachea Midline Respiratory: Symmetrical Chest Expansion and Respiratory Effort, - - crackles at b/l bases Cardiovascular: NL Sounds; No Murmurs; No JVD, RRR Abdominal: - - mild distention noted, soft, NT, BS+ Lymphatic: No Cervical Adenopathy Extremities: No Edema, No Clubbing, Cyanosis Skin: - - R heel ulcer at 5 cm in diam with necrotic tissue, unstageable Neurological: - - left sided hemiparesis with left arm contracted Result Diagrams: 08/24/19 06:00 08/24/19 06:00 Microbiology and Other Data: Microbiology 08/23/19 12:50 Nasal Screen MRSA (PCR) - Final Nasal Mrsa Not Detected Diagnostic Imagin. Exam Date: 08/23/19 1210 - VL ANK/BRACHIAL INDICES FINDINGS: The study is technically limited secondary to patient condition. Right: The posterior tibial ankle brachial index is not calculable. The dorsalis pedis ankle brachial index is not calculable The posterior tibial waveform is absent. The dorsalis pedis waveform is monophasic. Left: The posterior tibial ankle brachial index is not detectable. The dorsalis pedis ankle brachial index is not calculable. The posterior tibial waveform is absent. The dorsalis pedis waveform is absent. IMPRESSION: TECHNICALLY LIMITED STUDY. THERE IS MINIMAL ARTERIAL FLOW NOTED WITHIN THE RIGHT DORSALIS PEDIS ARTERY. NO FLOW IS NOTED WITHIN THE RIGHT POSTERIOR TIBIAL OF THE LEFT POSTERIOR TIBIAL OR DORSALIS PEDIS ARTERIES. THIS IS CONSISTENT WITH SEVERE BILATERAL PERIPHERAL ARTERIAL OCCLUSIVE DISEASE. 2. Exam Date: 08/23/19 0910 - FOOT RIGHT 2 VWS IMPRESSION: SOFT TISSUE SWELLING, NO SPECIFIC EVIDENCE FOR OSTEOMYELITIS. IF THERE IS A HIGH CLINICAL INDEX OF SUSPICION FOR OSTEOMYELITIS CONSIDER AN MRI STUDY WITHOUT CONTRAST OR A THREE-PHASE BONE SCAN. Assess/Plan/Problems-Billing Assessment: Mrs. Cunningham is a 68yo F with PMH of CVA with residual left hemiplegia, typ2 DM, HTN, HLD, GERD, transferred from [facility] due to unresponsiveness, found to be in septic, likely due to UTI. - Patient Problems (1) Sepsis Comment: Improved, suspect secondary to UTI. Blood cultures pending. Frazier was placed in ED Continue Ceftriaxone and Vanc (2) KRISS (acute kidney injury) Comment: - Likely secondary to a combination of sepsis and dehydration. - Renal function improved Pt has h/o CKD 3 due to DM (3) Elevated troponin Comment: Suspect demand ischemia in the setting of sepsis. Asymptomatic. (4) History of CVA (cerebrovascular accident) Comment: L hemiparesis. Pt spends almost all her day in bed in [facility]. (5) Hypernatremia Comment: - Secondary to dehydration. - Resolving on D5W (6) Swallowing difficulty Comment: awaiting SP recommendations, for now NPO, used to be nectar thick liquids, pureed solids. (7) Heel ulcer due to DM Comment: possible osteo MRI pending Ortho consulted Wound care consulted Aslo noted severe PAD in both LE's. Placed a call to DR. Martínez to discuss possible options (8) Diabetes Comment: -under more control today - Continue low dose Lantus and Lispro SS. (9) DNR (do not resuscitate) Comment: to be cont. Unfortunately pt's HCP is also hospitalized (10) SVT (supraventricular tachycardia) Comment: noted at admission-suspect due to sepsis and dehydration Resolved, cont telem, cont BB prn (11) DVT prophylaxis Comment: - SQ heparin.
[2019-08-24] MEDS ORDERED: D5W 1000 ML BAG* 1,000 ML IV SCH (12:00)
[2019-08-24] MEDS: Vancomycin(*) 1,000 MG in NS 0.9% 250 ML* 250 ML IV SCH ×2 (12:21→21:18)
[2019-08-24] MEDS: Collagenase 250 UNITS/GM OINT* 1 APPLIC OINT TOPICAL SCH (13:19)
[2019-08-24] MEDS: cefTRIAXone(*) 1 GM in NS 0.9% 50 ML* 50 ML IVPB SCH (15:47)
[2019-08-24] MEDS ORDERED: Morphine INJ* 2 MG/ML 1 ML SYRINGE (TWO MG - NEW SYRINGE VERSION) IV PRN (16:57)
--- NOTE | 2019-08-24 17:20 | CONS ---
CONSULTATION REPORT: DATE OF CONSULT: 08/24/19 ATTENDING ORTHOPEDIC PROVIDER: Dr. Trevor Barajas. PRIMARY CARE PROVIDERS: Dr. Sood; Lucía Conrad, [place]; and Dr. Neo Erazo. CHIEF COMPLAINT: Upon admission was unresponsive. REASON FOR CONSULT: Orthopedics is consulted for a right heel ulcer. HISTORY OF PRESENT ILLNESS: The patient is a 68-year-old female with left- sided hemiplegia due to CVA, dysphagia secondary to stroke. She is a resident at [facility]. She presented to the emergency room with lethargy and was found to be septic with suspected source of UTI and question of osteomyelitis of the right calcaneus. She has a known right heel eschar present for at least 2 months. The patient is unable to verbalize a history or provide any meaningful information to me. She does answer some yes/no questions , though unsure if this information is accurate. Information was obtained from her chart as well as her exam today. PAST MEDICAL HISTORY: CVA with left-sided hemiplegia, type 2 diabetes, hypertension, dyslipidemia, GERD, undefined personality disorder. ALLERGIES: METFORMIN, OXYCODONE, PROPOXYPHENE. FAMILY HISTORY: Unobtainable. SOCIAL HISTORY: The patient is a resident at [facility]. She is bedbound. She is incontinent of both bowel and bladder. At baseline, communication is not clear, but she does verbalize somewhat. REVIEW OF SYSTEMS: Unable to obtain. PHYSICAL EXAM: Vital Signs: Temperature 98.8, pulse rate 82, respiratory rate 16, oxygen saturation 98% on 4 L. General: The patient is lying in bed, in no acute distress. She responds minimally to my questions, occasionally answering with a grunting yes/no. She does not follow commands. HEENT: Head is normocephalic, atraumatic. Extraocular movements intact. Respiratory: Rate and effort of breathing normal. Abdomen: Nondistended. Extremities: There is an ulcer of the right medial heel, it is an unstageable eschar measuring roughly 4 cm in diameter. There is minimal erythema surrounding without warmth. There is no streaking erythema. There is no fluctuance. This area is tender to palpation. Able to passively flex and extend digits and ankle without obvious pain. Vascular: DP and PT pulses are not palpable. The foot is warm. Capillary refill less than 2 seconds distally. Neuro: The patient does not respond to questioning about sensation about the foot, though she does express pain when I am palpating the heel. DIAGNOSTIC STUDIES/LAB DATA: White blood cell count 14.1, hemoglobin 10.3, hematocrit 33. Sodium 147, potassium 4.3. Right lower extremity MRI, impression: Medial heel soft tissue ulcer without evidence of loculated soft tissue plane abscess or subjacent osteomyelitis of the calcaneal tuberosity. Extremity arterial study: Minimal arterial flow noted within the right DP artery. No flow noted within the right PT artery. Severe bilateral peripheral arterial occlusive disease. ASSESSMENT: Right heel unstageable ulcer without underlying osteomyelitis or abscess. Suspect this is a pressure ulcer though with a vascular and diabetic component contributing. Severe peripheral arterial disease. PLAN: Continue wound care with Santyl over the eschar, or as recommended by wound care. The patient needs to have a vascular consult as she has very poor blood flow to the foot, which will inhibit healing. She should continue on antibiotics per ID. Plan is for wound care, vascular consult, no need for surgical intervention at this time. Plan and MRI has been reviewed with Dr Barajas. Ortho to follow exam while in house. MEHDI REID [id number]/[facility] #: [id number] DEVON
[2019-08-24 17:32] LABS: BUN/Creatinine Ratio 37.5 (8-20); Calcium 8.1 mg/dL (8.6-10.3); EGFR African American 69.7 (>60); EGFR Non-African American 57.6 (>60); Potassium 3.4 mmol/L (3.5-5.0)
[2019-08-24] MEDS ORDERED: D5W 20 MEQ KCL 1000 ML BAG* 1,000 ML IV SCH (18:00)
[2019-08-25 05:08] LABS: ABS Basophils 0.1 10^3/ul (0-0.2); ABS Eosinophils 0.2 10^3/ul (0-0.6); ABS Lymphocytes 1.6 10^3/ul (1.0-4.8); ABS Monocytes 0.5 10^3/ul (0-0.8); ABS Neutrophils 7.6 10^3/ul (1.5-7.7); Eosinophil % 2.1 %; Hematocrit 32 % (35-47); Hemoglobin 10.4 g/dL (12.0-16.0); Lymphocyte % 15.7 %; Mean Corpuscular HGB Conc 32 g/dL (31-36); Mean Corpuscular Hemoglobin 31 pg (27-31); Mean Corpuscular Volume 95 fL (80-97); Nucleated Red Blood Cells % 0.1; Platelet Count 141 10^3/uL (150-450); Red Cell Distribution Width 15 % (10-15)
[2019-08-25 05:14] LABS: BUN/Creatinine Ratio 30.9 (8-20); Calcium 7.8 mg/dL (8.6-10.3); EGFR African American 84.8 (>60); EGFR Non-African American 70.1 (>60); Magnesium 1.4 mg/dL (1.9-2.7); Potassium 3.4 mmol/L (3.5-5.0)
[2019-08-25] MEDS ORDERED: NS 0.9% 1000 ML** 1,000 ML IV SCH (05:15)
[2019-08-25] MEDS: Heparin VIAL(*) 5000 UNITS/ML VIAL (FIVE THOUSAND) SUBCUT SCH (05:30)
[2019-08-25] MEDS: Insulin LISPRO* 1 UNITS UNIT SUBCUT SCH ×2 (05:30→08:06)
[2019-08-25] MEDS ORDERED: Magnesium Sulfate 1 GM IV* 1 GM/100 ML BAG IV ONE (06:00)
[2019-08-25] MEDS ORDERED: KCL 20 MEQ/100 ML IVPREMIX* 20 MEQ/100 ML BAG IV ONE (06:00)
[2019-08-25] MEDS: Collagenase 250 UNITS/GM OINT* 1 APPLIC OINT TOPICAL SCH (08:03)
[2019-08-25] MEDS: Insulin GLARGINE(*) 1 UNITS UNIT SUBCUT SCH (08:12)
[2019-08-25] MEDS: Pantoprazole IV* 40 MG IV SCH (08:14)
[2019-08-25] MEDS ORDERED: Magnesium Sulf 4 GM/100 ML IV* 4,000 MG/100 ML BAG IVPB ONE (08:30)
--- NOTE | 2019-08-25 08:30 | PN ---
Subjective Date of Service: 08/25/19 Interval History: Pt was not awake and alert enough to participate in swallow eval yesterday. Today she mumbles answerers to questions, but answered "no " when asked about pain Family History: Unchanged from Admission Social History: Unchanged from Admission Past Medical History: Unchanged from Admission Objective Active Medications: Acetaminophen (Tylenol Supp*) 650 mg [place] Q6H PRN PRN Reason: TEMPERATURE > 100.4 Last Admin: 08/24/19 04:16 Dose: 650 mg Collagenase (Santyl 250 Units/Gm Oint*) 1 applic TOPICAL DAILY [facility] Last Admin: 08/25/19 08:03 Dose: 1 applic Dextrose (Dextrose 50% Vial 50 Ml*) 25 ml IV PUSH .FOR FS < 60 - SS PRN PRN Reason: FS < 60 Heparin Sodium (Porcine) (Heparin Vial(*)) 5,000 units SUBCUT Q8HR [facility] Last Admin: 08/25/19 05:30 Dose: 5,000 units Ceftriaxone Sodium 1 gm/ (Sodium Chloride) 50 mls @ 100 mls/hr IVPB Q24H [facility] Last Admin: 08/24/19 15:47 Dose: 100 mls/hr Sodium Chloride (Ns 0.9% 1000 Ml) 1,000 mls @ 100 mls/hr IV PER RATE [facility] Magnesium Sulfate (Magnesium Sulf 4 Gm/100 Ml Iv*) 4,000 mg in 100 mls @ 33.333 mls/hr IVPB ONCE ONE Stop: 08/25/19 11:29 Insulin Glargine (Lantus(*)) 8 units SUBCUT 0800 [facility] Last Admin: 08/25/19 08:12 Dose: 8 unit Insulin Human Lispro (Humalog*) 0 units SUBCUT FS Q6 ICU [facility]; Protocol Last Admin: 08/25/19 05:30 Dose: 2 unit Metoprolol Tartrate (Lopressor Iv*) 5 mg IV Q4H PRN PRN Reason: HR > 140 Last Admin: 08/24/19 19:17 Dose: 5 mg Morphine Sulfate (Morphine Inj (Syringe))*) 1 mg IV Q4H PRN PRN Reason: PAIN - SEVERE Pantoprazole Sodium (Protonix Iv*) 40 mg IV DAILY [facility] Last Admin: 08/25/19 08:14 Dose: 40 mg Vital Signs - 8 hr 08/25/19 08/25/1919 01:00 02:00 03:00 Temperature Pulse Rate 85 86 129 Respiratory 23 25 24 Rate Blood Pressure 150/84 156/103 153/91 (mmHg) O2 Sat by Pulse 98 98 97 Oximetry 08/25/19 08/25/19 08/25/19 03:46 04:00 05:00 Temperature 98.2 F Pulse Rate 84 77 Respiratory 20 20 Rate Blood Pressure 152/67 140/81 (mmHg) O2 Sat by Pulse 97 97 Oximetry 08/25/19 08/25/19 06:00 07:52 Temperature 98.7 F Pulse Rate 85 Respiratory 23 Rate Blood Pressure 148/79 (mmHg) O2 Sat by Pulse 97 Oximetry Oxygen Devices in Use Now: None Appearance: 68 yo f in nAD, awake, not fully verbal, disoriented Eyes: No Scleral Icterus, PERRLA Ears/Nose/Mouth/Throat: NL Teeth, Lips, Gums, Mucous Membranes Moist Neck: NL Appearance and Movements; NL JVP, Trachea Midline Respiratory: Symmetrical Chest Expansion and Respiratory Effort, Clear to Auscultation Cardiovascular: NL Sounds; No Murmurs; No JVD, RRR Abdominal: NL Sounds; No Tenderness; No Distention Lymphatic: No Cervical Adenopathy Extremities: No Clubbing, Cyanosis Skin: - - R feel ulcer not uncovered from dressings today Neurological: - - left hemiplegia, difficult to understand speeech Result Diagrams: 08/25/19 04:30 08/25/19 04:30 Microbiology and Other Data: Microbiology 08/23/19 12:50 Nasal Screen MRSA (PCR) - Final Nasal Mrsa Not Detected Diagnostic Imagin. Exam Date: 08/23/19 1210 - VL ANK/BRACHIAL INDICES FINDINGS: The study is technically limited secondary to patient condition. Right: The posterior tibial ankle brachial index is not calculable. The dorsalis pedis ankle brachial index is not calculable The posterior tibial waveform is absent. The dorsalis pedis waveform is monophasic. Left: The posterior tibial ankle brachial index is not detectable. The dorsalis pedis ankle brachial index is not calculable. The posterior tibial waveform is absent. The dorsalis pedis waveform is absent. IMPRESSION: TECHNICALLY LIMITED STUDY. THERE IS MINIMAL ARTERIAL FLOW NOTED WITHIN THE RIGHT DORSALIS PEDIS ARTERY. NO FLOW IS NOTED WITHIN THE RIGHT POSTERIOR TIBIAL OF THE LEFT POSTERIOR TIBIAL OR DORSALIS PEDIS ARTERIES. THIS IS CONSISTENT WITH SEVERE BILATERAL PERIPHERAL ARTERIAL OCCLUSIVE DISEASE. 2. Exam Date: 08/23/19 0910 - FOOT RIGHT 2 VWS IMPRESSION: SOFT TISSUE SWELLING, NO SPECIFIC EVIDENCE FOR OSTEOMYELITIS. IF THERE IS A HIGH CLINICAL INDEX OF SUSPICION FOR OSTEOMYELITIS CONSIDER AN MRI STUDY WITHOUT CONTRAST OR A THREE-PHASE BONE SCAN. Assess/Plan/Problems-Billing Assessment: Mrs. Cunningham is a 68yo F with PMH of CVA with residual left hemiplegia, typ2 DM, HTN, HLD, GERD, transferred from [facility] [place] due to unresponsiveness, found to be in septic, likely due to UTI. - Patient Problems (1) Sepsis Comment: Improved, suspect secondary to UTI, although cx neg. Blood cultures NTD. Frazier was placed in ED Continue Ceftriaxone . d/c Vanc (2) KRISS (acute kidney injury) Comment: - Likely secondary to a combination of sepsis and dehydration. - Renal function improved Pt has h/o CKD 3 due to DM (3) Elevated troponin Comment: Suspect demand ischemia in the setting of sepsis. Asymptomatic. (4) History of CVA (cerebrovascular accident) Comment: L hemiparesis. Pt spends almost all her day in bed in [facility] [place]. (5) Hypernatremia Comment: - Secondary to dehydration. - Resolving on D5W (6) Swallowing difficulty Comment: awaiting SP recommendations, for now NPO, used to be nectar thick liquids, pureed solids. (7) Heel ulcer due to DM Comment: MRI negative for osteo, but dopplers positive for significant b/l PAD- Dr. Martínez will see pt today Ortho consult appreciated Wound care ongoing (8) Diabetes Comment: -controled - Continue low dose Lantus and Lispro SS. (9) DNR (do not resuscitate) Comment: to be cont. Unfortunately pt's HCP is also hospitalized, but spoke with Mrs Guillermo on 08/24/19 who confirmed DNR/DNI and no feeding tube. Pt is still not able to swallow and palliative care consult placed-it is possible that pt would be an appropiate candidate for hospice. (10) SVT (supraventricular tachycardia) Comment: noted at admission-suspect due to sepsis and dehydration Resolved (11) DVT prophylaxis Comment: - SQ heparin. Status and Disposition: inpatient, transfer out of ICU today
[2019-08-25] MEDS ORDERED: Vancomycin Trough Check NOTE FOLLOW UP ONE (09:30)
--- NOTE | 2019-08-25 12:23 | CONSULT ---
Palliative / Hospice Consult Ordering Provider: Marleny Sood/Lillian Vazquez Referal Reason: Goals of care/ no bowel meds/ MS - Subjective Code Status: DNR Advance Directives Location: No Advance Directives MOLST Part A Completed: Yes - updated with HCP MOLST Part E Completed:: Yes - updated with HCP - History or Present Illness History or Present Illness: 68yo female with L sided hemiplegia s/p CVA resident of who presents with lethargy recently treated for UTI. PMH is significant for dysphagia due to CVA, chronic R heel wound, DM type 2 on insulin, HTN, hyperlipidemia, GERD, h/o gastric ulcer and personalty disorder. PSHx with 2 adult children( estranged) friend Lay Dempsey([phone]) is her HCP, non smoker, no etoh, no drug use lives at and is bedbound. Studies EKG sinus tach, CXR neg, foot xray soft tissue swelling, extremity arterial study severe bilat peripheral arterial occlusive disease, Abd/bladder US L calculi, EKG #2 afib, EKG #3 sinus tach, KUB stone, extremity MRI no osteo or abscess, H/H 10.4/32, BUN/Cr 25/.81 egfr 70.1, Ca 7.8, Mg 1.4, alb 3.4, INR 1.08 and BC neg so far. Pt admitted in ICU with sepsis, R heel wound, dehydration, KRISS, dysphagia and demand ischemia. All history is from pt which is limited, her friend Lay and medical record. Lab Values: Abnormal Lab Results 08/24/19 08/24/19 08/24/19 12:41 17:10 23:48 WBC RBC Hgb Hct MCV MCH MCHC RDW Plt Count MPV Neut % (Auto) Lymph % (Auto) [place] % (Auto) Eos % (Auto) Baso % (Auto) Absolute Neuts (auto) Absolute Lymphs (auto) Absolute Monos (auto) Absolute Eos (auto) Absolute Basos (auto) Absolute Nucleated RBC Nucleated RBC % Sodium 147 H Potassium 3.4 L Chloride 118 H Carbon Dioxide 24 Anion Gap 5 BUN 36 H Creatinine 0.96 H Est GFR ( Amer) 69.7 Est GFR (Non-Af Amer) 57.6 BUN/Creatinine Ratio 37.5 H Glucose 134 H POC Glucose (mg/dL) 159 H 132 H Calcium 8.1 L Magnesium 08/25/19 08/25/19 04:30 04:30 WBC 10.0 RBC 3.40 L Hgb 10.4 L Hct 32 L MCV 95 MCH 31 MCHC 32 RDW 15 Plt Count 141 L MPV 10.0 Neut % (Auto) 76.1 Lymph % (Auto) 15.7 [place] % (Auto) 5.4 Eos % (Auto) 2.1 Baso % (Auto) 0.7 Absolute Neuts (auto) 7.6 Absolute Lymphs (auto) 1.6 Absolute Monos (auto) 0.5 Absolute Eos (auto) 0.2 Absolute Basos (auto) 0.1 Absolute Nucleated RBC 0.0 Nucleated RBC % 0.1 Sodium 141 Potassium 3.4 L Chloride 113 H Carbon Dioxide 21 L Anion Gap 7 BUN 25 H Creatinine 0.81 Est GFR ( Amer) 84.8 Est GFR (Non-Af Amer) 70.1 BUN/Creatinine Ratio 30.9 H Glucose 157 H POC Glucose (mg/dL) Calcium 7.8 L Magnesium 1.4 L Laboratory Last Values WBC 10.0 10^3/uL (3.5-10.8) 08/25/19 04:30 RBC 3.40 10^6 /uL (3.70-4.87) L 08/25/19 04:30 Hgb 10.4 g/dL (12.0-16.0) L 08/25/19 04:30 Hct 32 % (35-47) L 08/25/19 04:30 MCV 95 fL (80-97) 08/25/19 04:30 MCH 31 pg (27-31) 08/25/19 04:30 MCHC 32 g/dL (31-36) 08/25/19 04:30 RDW 15 % (10-15) 08/25/19 04:30 Plt Count 141 10^3/uL (150-450) L 08/25/19 04:30 MPV 10.0 fL (7.4-10.4) 08/25/19 04:30 Neut % (Auto) 76.1 % 08/25/19 04:30 Lymph % (Auto) 15.7 % 08/25/19 04:30 [place] % (Auto) 5.4 % 08/25/19 04:30 Eos % (Auto) 2.1 % 08/25/19 04:30 Baso % (Auto) 0.7 % 08/25/19 04:30 Absolute Neuts (auto) 7.6 10^3/ul (1.5-7.7) 08/25/19 04:30 Absolute Lymphs (auto) 1.6 10^3/ul (1.0-4.8) 08/25/19 04:30 Absolute Monos (auto) 0.5 10^3/ul (0-0.8) 08/25/19 04:30 Absolute Eos (auto) 0.2 10^3/ul (0-0.6) 08/25/19 04:30 Absolute Basos (auto) 0.1 10^3/ul (0-0.2) 08/25/19 04:30 Absolute Nucleated RBC 0.0 10^3/ul 08/25/19 04:30 Nucleated RBC % 0.1 08/25/19 04:30 ESR 63 mm/Hr (0-29) H 08/23/19 09:22 INR (Anticoag Therapy) 1.08 (0.82-1.09) 08/23/19 09:22 APTT 31.5 seconds (26.0-38.0) 08/23/19 09:22 Patient Temperature Not Reportable 08/23/19 13:53 ABG pH 7.29 (7.35-7.45) L 08/23/19 13:53 ABG pH (Temp Correct) Not Reportable 08/23/19 13:53 ABG pCO2 44 mmHg (35-45) 08/23/19 13:53 ABG pCO2 (Temp Corrct Not Reportable 08/23/19 13:53 ABG pO2 97 mmHg (80-100) 08/23/19 13:53 ABG pO2 (Temp Correct Not Reportable 08/23/19 13:53 ABG HCO3 20.7 mmol/L (19-31) 08/23/19 13:53 ABG O2 Saturation 98.7 % (94.0-98.0) H 08/23/19 13:53 ABG Base Excess -5.3 mmol/L (-2.0-2.0) L 08/23/19 13:53 Respiration Rate Not Reportable 08/23/19 13:53 O2 Delivery Device 2 lpm nc 08/23/19 13:53 Ventilator Type Not Reportable 08/23/19 13:53 Vent Mode Not Reportable 08/23/19 13:53 FiO2 Not Reportable 08/23/19 13:53 Inspiratory Time Not Reportable 08/23/19 13:53 PEEP Not Reportable 08/23/19 13:53 Pressure Support Not Reportable 08/23/19 13:53 Pressure Control Not Reportable 08/23/19 13:53 EPAP Not Reportable 08/23/19 13:53 IPAP Not Reportable 08/23/19 13:53 BiPAP Not Reportable 08/23/19 13:53 Sodium 141 mmol/L (135-145) 08/25/19 04:30 Potassium 3.4 mmol/L (3.5-5.0) L 08/25/19 04:30 Chloride 113 mmol/L (101-111) H 08/25/19 04:30 Carbon Dioxide 21 mmol/L (22-32) L 08/25/19 04:30 Anion Gap 7 mmol/L (2-11) 08/25/19 04:30 BUN 25 mg/dL (6-24) H 08/25/19 04:30 Creatinine 0.81 mg/dL (0.51-0.95) 08/25/19 04:30 Est GFR ( Amer) 84.8 (>60) 08/25/19 04:30 Est GFR (Non-Af Amer) 70.1 (>60) 08/25/19 04:30 BUN/Creatinine Ratio 30.9 (8-20) H 08/25/19 04:30 Glucose 157 mg/dL (70-100) H 08/25/19 04:30 POC Glucose (mg/dL) 132 mg/dL (70-100) H 08/24/19 23:48 Lactic Acid 0.7 mmol/L (0.5-2.0) 08/23/19 12:19 Calcium 7.8 mg/dL (8.6-10.3) L 08/25/19 04:30 Magnesium 1.4 mg/dL (1.9-2.7) L 08/25/19 04:30 Total Bilirubin 0.50 mg/dL (0.2-1.0) 08/23/19 09:22 AST 13 U/L (13-39) 08/23/19 09:22 ALT 13 U/L (7-52) 08/23/19 09:22 Alkaline Phosphatase 55 U/L (34-104) 08/23/19 09:22 Total Creatine Kinase 24 U/L (10-223) 08/23/19 09:22 Troponin I 0.07 ng/mL (<0.04) H* 08/23/19 12:20 C-Reactive Protein 13.71 mg/L (<8.01) H 08/23/19 09:22 Total Protein 6.8 g/dL (6.4-8.9) 08/23/19 09:22 Albumin 3.4 g/dL (3.2-5.2) 08/23/19 09:22 Globulin 3.4 g/dL (2-4) 08/23/19 09:22 Albumin/Globulin Ratio 1.0 (1-3) 08/23/19 09:22 Urine Color Yellow 08/23/19 21:15 Urine Appearance Cloudy 08/23/19 21:15 Urine pH 5.0 (5-9) 08/23/19 21:15 Ur Specific [place] 1.017 (1.010-1.030) 08/23/19 21:15 Urine Protein 1+(30 mg/dl) (Negative) A 08/23/19 21:15 Urine Ketones Negative (Negative) 08/23/19 21:15 Urine Blood 1+ (Negative) A 08/23/19 21:15 Urine Nitrate Negative (Negative) 08/23/19 21:15 Urine Bilirubin Negative (Negative) 08/23/19 21:15 Urine Urobilinogen Negative (Negative) 08/23/19 21:15 Ur Leukocyte Esterase 3+ (Negative) A 08/23/19 21:15 Urine WBC (Auto) 3+(>20/hpf) (Absent) A 08/23/19 21:15 Urine RBC (Auto) 3+(>10/hpf) (Absent) A 08/23/19 21:15 Ur Squamous Epith Cells Present (Absent) A 08/23/19 21:15 Urine Bacteria 3+ (Absent) A 08/23/19 21:15 Granular Casts Present (Absent) A 08/23/19 21:15 Urine Yeast Present (Absent) A 08/23/19 09:06 Urine Glucose 1+(50 mg/dl) (Negative) A 08/23/19 21:15 Urine Ascorbic Acid * (Negative) A 08/23/19 21:15 Random Vancomycin 9.6 mcg/mL 08/24/19 06:00 - Objective Active Medications: Acetaminophen (Tylenol Supp*) 650 mg [place] Q6H PRN PRN Reason: TEMPERATURE > 100.4 Last Admin: 08/24/19 04:16 Dose: 650 mg Collagenase (Santyl 250 Units/Gm Oint*) 1 applic TOPICAL DAILY [facility] Last Admin: 08/25/19 08:03 Dose: 1 applic Ceftriaxone Sodium 1 gm/ (Sodium Chloride) 50 mls @ 100 mls/hr IVPB Q24H [facility] Last Admin: 08/24/19 15:47 Dose: 100 mls/hr Morphine Sulfate (Morphine Inj (Syringe))*) 1 mg IV Q4H PRN PRN Reason: PAIN - SEVERE Vital Signs: Vital Signs: Temp Pulse Resp BP Pulse Ox 98.7 F 82 24 176/70 98 08/25/19 07:52 08/25/19 12:00 08/25/19 12:00 08/25/19 11:00 08/25/19 11:00 Patient Weight: Weight 76.9 kg Intake and Output: Intake & Output 08/23/19 08/24/19 08/25/19 08/26/19 06:59 06:59 06:59 06:59 Intake Total 7097 3187 Output Total 1490 3375 250 Balance 5607 -188 -250 Weight 74.7 kg 76.9 kg Intake: IV Fluids 6349 2397 ABX - CEFTRIAXONE 60 ABX - VANCOMYCIN 85 200 D5W 2166 718 D5W 1/2 NS 995 654 D5W 20 meq KCL 765 NS (0.9%) 1003 IVPB 748 90 ABX - CEFTRIAXONE 280 ABX - VANCOMYCIN 90 NS (0.9%) 344 Potassium 124 Oral 0 0 Frazier Irrigate Amount 700 Output: Frazier 1490 3250 250 Straight Cath 125 ADLs: Meal Record Start: 08/23/19 12: 56 Freq: ,, Status: Inactive Protocol: Created 08/23/19 12:56 System (Rec: 08/23/19 12:56 System ICU-C12) Document 08/24/19 09:00 [id number] (Rec: 08/24/19 13:44 [id number] ICU-C15) Document 08/24/19 13:00 [id number] (Rec: 08/24/19 13:46 [id number] ICU-C15) Document 08/24/19 17:58 [id number] (Rec: 08/24/19 18:01 [id number] ICU-C15) Document 08/25/19 09:00 [id number] (Rec: 08/25/19 10:29 [id number] ICU-L03) Intake and Output Start: 08/23/19 08: 54 Freq: 06,14,2200 Status: Active Protocol: Created 08/23/19 08:54 System (Rec: 08/23/19 08:54 System [id number]) Intake and Output Start: 08/23/19 12: 56 Freq: Q1HR Status: Inactive Protocol: Created 08/23/19 12:56 System (Rec: 08/23/19 12:56 System ICU-C12) Document 08/23/19 13:00 [id number] (Rec: 08/23/19 13:53 [id number] ICU-M28) Document 08/23/19 14:00 [id number] (Rec: 08/23/19 14:04 [id number] ICU-M28) Document 08/23/19 15:00 [id number] (Rec: 08/23/19 15:11 [id number] ICU-C10) Document 08/23/19 17:00 [id number] (Rec: 08/23/19 17:30 [id number] ICU-C10) Document 08/23/19 18:00 [id number] (Rec: 08/23/19 18:17 [id number] ICU-M28) Document 08/23/19 21:00 [id number] (Rec: 08/23/19 21:50 [id number] ICU-C15) Document 08/23/19 22:00 [id number] (Rec: 08/23/19 22:43 [id number] ICU-C15) Document 08/23/19 23:00 [id number] (Rec: 08/23/19 23:21 [id number] ICU-C15) Document 08/24/19 00:00 [id number] (Rec: 08/24/19 00:56 [id number] ICU-C15) Document 08/24/19 01:00 [id number] (Rec: 08/24/19 01:07 [id number] ICU-C15) Document 08/24/19 02:00 [id number] (Rec: 08/24/19 02:06 [id number] ICU-C15) Document 08/24/19 04:00 [id number] (Rec: 08/24/19 04:25 [id number] ICU-C15) Document 08/24/19 06:00 [id number] (Rec: 08/24/19 06:29 [id number] ICU-C15) Document 08/24/19 08:00 [id number] (Rec: 08/24/19 10:53 [id number] ICU-C15) Document 08/24/19 14:00 [id number] (Rec: 08/24/19 14:26 [id number] ICU-C15) Document 08/24/19 14:00 [id number] (Rec: 08/24/19 19:46 [id number] ICU-C15) Document 08/24/19 19:00 [id number] (Rec: 08/24/19 19:46 [id number] ICU-C15) Document 08/24/19 22:00 [id number] (Rec: 08/24/19 22:01 [id number] ICU-L03) Document 08/25/19 00:00 [id number] (Rec: 08/25/19 00:10 [id number] ICU-L03) Document 08/25/19 01:00 [id number] (Rec: 08/25/19 01:23 [id number] ICU-L03) Document 08/25/19 02:00 [id number] (Rec: 08/25/19 02:15 [id number] ICU-L03) Document 08/25/19 03:00 [id number] (Rec: 08/25/19 03:26 [id number] ICU-M28) Document 08/25/19 04:00 [id number] (Rec: 08/25/19 04:43 [id number] ICU-L03) Document 08/25/19 05:50 IJQ2075 (Rec: 08/25/19 05:50 [id number] ICU-L03) Document 08/25/19 07:00 [id number] (Rec: 08/25/19 08:51 [id number] ICU-C16) Document 08/25/19 08:00 [id number] (Rec: 08/25/19 08:51 [id number] ICU-C16) Eyes: No Scleral Icterus, PERRLA Ears/Nose/Mouth/Throat: NL Teeth, Lips, Gums, Mucous Membranes Moist Neck: NL Appearance and Movements; NL JVP, Trachea Midline Cardiovascular: NL Sounds; No Murmurs; No JVD, RRR Abdominal: NL Sounds; No Tenderness; No Distention Extremities: No Clubbing, Cyanosis Neurological: - - left hemiplegia, difficult to understand speeech - Assessment Assessment: 68yo female with L hemiplegia resident of now with sepsis, dysphagia, KRISS and R heel wound wanting to pursue hospice - Plan Consult Plan (MU): Hospice Plan: Spoke with pt but very difficult and with Lay her HCP. Pt doesn't want aggressive care and her HCP would like to see pt at Hospice residence or with hospice involved at . Decision was made to pursue comfort care, new MOLST was completed. Pt with dysphagia and not wanting G tube, the concern is she will get aspiration pneumonia or not get enough calories especially with sepsis. HCP has been able to locate one of her daughters is trying to contact her and the other daughter has mental health issues but resides in the [facility] area. Pt is eligible for hospice with diagnosis of old CVA and L hemiplegia now with dysphagia not wanting Gtube or artificial nutrition, chronic L heel wound and recurrent UTIs. KPS 40%, PPS 40% - Time On Unit Date of Evaluation: 08/25/19 Hospice Consult Time in: 13:00 Hospice Consult Time Out: 14:00 Hospice Consult Time Total: 60 > 50% of Time Spend In Counseling or Coordinating Care: Yes
[2019-08-25] MEDS: cefTRIAXone(*) 1 GM in NS 0.9% 50 ML* 50 ML IVPB SCH (16:29)
--- NOTE | 2019-08-25 18:23 | PN ---
Progress Note - Progress Note Date of Service: 08/25/19 SOAP: Subjective: []Pt seen at bedside. She was made comfort care today by her healthcare proxy. She is unable to answer my questions though does speak a few words today. Objective: []NAD, laying in bed RLE: Right heel with 4 cm unstageable ulcer. There is a foul odor, there is no discharge. Minimal surrounding erythema with no proximal streaking. Tenderness to palpation of the heel. Assessment: []R heel ulcer, no osteo or abscess Plan: []Cont wound care, abx vasc consult needed ortho will continue to follow. If any discharge please culture Vital Signs Temp 98.7 F 08/25/19 07:52 Pulse 82 08/25/19 12:00 Resp 24 08/25/19 12:00 BP 176/70 08/25/19 11:00 Pulse Ox 98 08/25/19 11:00 Intake & Output 08/24/19 08/25/19 08/25/19 18:59 06:59 18:59 Intake Total 1354 1833 360 Output Total 1525 1850 700 Balance -171 -17 -340 Weight 169 lb 8.568 oz Intake: IV Fluids 654 1743 ABX - CEFTRIAXONE 60 ABX - VANCOMYCIN 200 D5W 718 D5W 1/2 NS 654 D5W 20 meq KCL 765 IVPB 90 ABX - VANCOMYCIN 90 Oral 0 360 Frazier Irrigate Amount 700 Output: Frazier 1525 1725 700 Straight Cath 125 Laboratory Last Values WBC 10.0 10^3/uL (3.5-10.8) 08/25/19 04:30 RBC 3.40 10^6 /uL (3.70-4.87) L 08/25/19 04:30 Hgb 10.4 g/dL (12.0-16.0) L 08/25/19 04:30 Hct 32 % (35-47) L 08/25/19 04:30 MCV 95 fL (80-97) 08/25/19 04:30 MCH 31 pg (27-31) 08/25/19 04:30 MCHC 32 g/dL (31-36) 08/25/19 04:30 RDW 15 % (10-15) 08/25/19 04:30 Plt Count 141 10^3/uL (150-450) L 08/25/19 04:30 MPV 10.0 fL (7.4-10.4) 08/25/19 04:30 Neut % (Auto) 76.1 % 08/25/19 04:30 Lymph % (Auto) 15.7 % 08/25/19 04:30 [place] % (Auto) 5.4 % 08/25/19 04:30 Eos % (Auto) 2.1 % 08/25/19 04:30 Baso % (Auto) 0.7 % 08/25/19 04:30 Absolute Neuts (auto) 7.6 10^3/ul (1.5-7.7) 08/25/19 04:30 Absolute Lymphs (auto) 1.6 10^3/ul (1.0-4.8) 08/25/19 04:30 Absolute Monos (auto) 0.5 10^3/ul (0-0.8) 08/25/19 04:30 Absolute Eos (auto) 0.2 10^3/ul (0-0.6) 08/25/19 04:30 Absolute Basos (auto) 0.1 10^3/ul (0-0.2) 08/25/19 04:30 Absolute Nucleated RBC 0.0 10^3/ul 08/25/19 04:30 Nucleated RBC % 0.1 08/25/19 04:30 ESR 63 mm/Hr (0-29) H 08/23/19 09:22 INR (Anticoag Therapy) 1.08 (0.82-1.09) 08/23/19 09:22 APTT 31.5 seconds (26.0-38.0) 08/23/19 09:22 Patient Temperature Not Reportable 08/23/19 13:53 ABG pH 7.29 (7.35-7.45) L 08/23/19 13:53 ABG pH (Temp Correct) Not Reportable 08/23/19 13:53 ABG pCO2 44 mmHg (35-45) 08/23/19 13:53 ABG pCO2 (Temp Corrct Not Reportable 08/23/19 13:53 ABG pO2 97 mmHg (80-100) 08/23/19 13:53 ABG pO2 (Temp Correct Not Reportable 08/23/19 13:53 ABG HCO3 20.7 mmol/L (19-31) 08/23/19 13:53 ABG O2 Saturation 98.7 % (94.0-98.0) H 08/23/19 13:53 ABG Base Excess -5.3 mmol/L (-2.0-2.0) L 08/23/19 13:53 Respiration Rate Not Reportable 08/23/19 13:53 O2 Delivery Device 2 lpm nc 08/23/19 13:53 Ventilator Type Not Reportable 08/23/19 13:53 Vent Mode Not Reportable 08/23/19 13:53 FiO2 Not Reportable 08/23/19 13:53 Inspiratory Time Not Reportable 08/23/19 13:53 PEEP Not Reportable 08/23/19 13:53 Pressure Support Not Reportable 08/23/19 13:53 Pressure Control Not Reportable 08/23/19 13:53 EPAP Not Reportable 08/23/19 13:53 IPAP Not Reportable 08/23/19 13:53 BiPAP Not Reportable 08/23/19 13:53 Sodium 141 mmol/L (135-145) 08/25/19 04:30 Potassium 3.4 mmol/L (3.5-5.0) L 08/25/19 04:30 Chloride 113 mmol/L (101-111) H 08/25/19 04:30 Carbon Dioxide 21 mmol/L (22-32) L 08/25/19 04:30 Anion Gap 7 mmol/L (2-11) 08/25/19 04:30 BUN 25 mg/dL (6-24) H 08/25/19 04:30 Creatinine 0.81 mg/dL (0.51-0.95) 08/25/19 04:30 Est GFR ( Amer) 84.8 (>60) 08/25/19 04:30 Est GFR (Non-Af Amer) 70.1 (>60) 08/25/19 04:30 BUN/Creatinine Ratio 30.9 (8-20) H 08/25/19 04:30 Glucose 157 mg/dL (70-100) H 08/25/19 04:30 POC Glucose (mg/dL) 132 mg/dL (70-100) H 08/24/19 23:48 Lactic Acid 0.7 mmol/L (0.5-2.0) 08/23/19 12:19 Calcium 7.8 mg/dL (8.6-10.3) L 08/25/19 04:30 Magnesium 1.4 mg/dL (1.9-2.7) L 08/25/19 04:30 Total Bilirubin 0.50 mg/dL (0.2-1.0) 08/23/19 09:22 AST 13 U/L (13-39) 08/23/19 09:22 ALT 13 U/L (7-52) 08/23/19 09:22 Alkaline Phosphatase 55 U/L (34-104) 08/23/19 09:22 Total Creatine Kinase 24 U/L (10-223) 08/23/19 09:22 Troponin I 0.07 ng/mL (<0.04) H* 08/23/19 12:20 C-Reactive Protein 13.71 mg/L (<8.01) H 08/23/19 09:22 Total Protein 6.8 g/dL (6.4-8.9) 08/23/19 09:22 Albumin 3.4 g/dL (3.2-5.2) 08/23/19 09:22 Globulin 3.4 g/dL (2-4) 08/23/19 09:22 Albumin/Globulin Ratio 1.0 (1-3) 08/23/19 09:22 Urine Color Yellow 08/23/19 21:15 Urine Appearance Cloudy 08/23/19 21:15 Urine pH 5.0 (5-9) 08/23/19 21:15 Ur Specific [place] 1.017 (1.010-1.030) 08/23/19 21:15 Urine Protein 1+(30 mg/dl) (Negative) A 08/23/19 21:15 Urine Ketones Negative (Negative) 08/23/19 21:15 Urine Blood 1+ (Negative) A 08/23/19 21:15 Urine Nitrate Negative (Negative) 08/23/19 21:15 Urine Bilirubin Negative (Negative) 08/23/19 21:15 Urine Urobilinogen Negative (Negative) 08/23/19 21:15 Ur Leukocyte Esterase 3+ (Negative) A 08/23/19 21:15 Urine WBC (Auto) 3+(>20/hpf) (Absent) A 08/23/19 21:15 Urine RBC (Auto) 3+(>10/hpf) (Absent) A 08/23/19 21:15 Ur Squamous Epith Cells Present (Absent) A 08/23/19 21:15 Urine Bacteria 3+ (Absent) A 08/23/19 21:15 Granular Casts Present (Absent) A 08/23/19 21:15 Urine Yeast Present (Absent) A 08/23/19 09:06 Urine Glucose 1+(50 mg/dl) (Negative) A 08/23/19 21:15 Urine Ascorbic Acid * (Negative) A 08/23/19 21:15 Random Vancomycin 9.6 mcg/mL 08/24/19 06:00
--- NOTE | 2019-08-26 09:31 | PN ---
Subjective Date of Service: 08/26/19 Interval History: Pt's mentation is improving. able to tell me with slight dysarthia that she is in hospital, and that she would like to try to eat something. C/o b/l feet pain. Agrees with comfort care Family History: Unchanged from Admission Social History: Unchanged from Admission Past Medical History: Unchanged from Admission Objective Active Medications: Acetaminophen (Tylenol Supp*) 650 mg TX Q6H PRN PRN Reason: TEMPERATURE > 100.4 Last Admin: 08/24/19 04:16 Dose: 650 mg Collagenase (Santyl 250 Units/Gm Oint*) 1 applic TOPICAL DAILY MANPREET Last Admin: 08/25/19 08:03 Dose: 1 applic Ceftriaxone Sodium 1 gm/ (Sodium Chloride) 50 mls @ 100 mls/hr IVPB Q24H MANPREET Last Admin: 08/25/19 16:29 Dose: 100 mls/hr Morphine Sulfate (Morphine Inj (Syringe))*) 1 mg IV Q4H PRN PRN Reason: PAIN - SEVERE Oxygen Devices in Use Now: Nasal Cannula Appearance: 68 yo f in nAD, AAOx2, dysarthia noted Eyes: No Scleral Icterus, PERRLA Ears/Nose/Mouth/Throat: NL Teeth, Lips, Gums, Mucous Membranes Moist Neck: NL Appearance and Movements; NL JVP, Trachea Midline Respiratory: Symmetrical Chest Expansion and Respiratory Effort, Clear to Auscultation Cardiovascular: NL Sounds; No Murmurs; No JVD, RRR Abdominal: NL Sounds; No Tenderness; No Distention, No Hepatosplenomegaly Lymphatic: No Cervical Adenopathy Extremities: No Clubbing, Cyanosis, - - mild b/l pedal edema. Skin: - - R medial aspect heel ulcer covered with necrotic tissue at 5 cm in diam, unstageable Neurological: - - R hemiparesis, dysarthia Result Diagrams: 08/25/19 04:30 08/25/19 04:30 Microbiology and Other Data: Microbiology 08/23/19 12:50 Nasal Screen MRSA (PCR) - Final Nasal Mrsa Not Detected Diagnostic Imagin. Exam Date: 08/23/19 1210 - VL ANK/BRACHIAL INDICES FINDINGS: The study is technically limited secondary to patient condition. Right: The posterior tibial ankle brachial index is not calculable. The dorsalis pedis ankle brachial index is not calculable The posterior tibial waveform is absent. The dorsalis pedis waveform is monophasic. Left: The posterior tibial ankle brachial index is not detectable. The dorsalis pedis ankle brachial index is not calculable. The posterior tibial waveform is absent. The dorsalis pedis waveform is absent. IMPRESSION: TECHNICALLY LIMITED STUDY. THERE IS MINIMAL ARTERIAL FLOW NOTED WITHIN THE RIGHT DORSALIS PEDIS ARTERY. NO FLOW IS NOTED WITHIN THE RIGHT POSTERIOR TIBIAL OF THE LEFT POSTERIOR TIBIAL OR DORSALIS PEDIS ARTERIES. THIS IS CONSISTENT WITH SEVERE BILATERAL PERIPHERAL ARTERIAL OCCLUSIVE DISEASE. 2. Exam Date: 08/23/19 0910 - FOOT RIGHT 2 VWS IMPRESSION: SOFT TISSUE SWELLING, NO SPECIFIC EVIDENCE FOR OSTEOMYELITIS. IF THERE IS A HIGH CLINICAL INDEX OF SUSPICION FOR OSTEOMYELITIS CONSIDER AN MRI STUDY WITHOUT CONTRAST OR A THREE-PHASE BONE SCAN. Assess/Plan/Problems-Billing Assessment: Mrs. Cunningham is a 68yo F with PMH of CVA with residual left hemiplegia, typ2 DM, HTN, HLD, GERD, transferred from [facility] due to unresponsiveness, found to be in septic, likely due to UTI. - Patient Problems (1) DNR (do not resuscitate) Comment: Unfortunately pt's HCP is also hospitalized, but spoke with Mrs Guillermo on 08/24/19 who confirmed DNR/DNI and no feeding tube. Pt was still not able to swallow and palliative care consult was obtained. Pt was placed on comfort care on 08/25/19. (2) Sepsis Comment: Improved, suspect secondary to UTI, although cx neg. Blood cultures NTD. Frazier was placed in ED Continue Ceftriaxone . (3) KRISS (acute kidney injury) Comment: - Likely secondary to a combination of sepsis and dehydration. - Renal function improved Pt has h/o CKD 3 due to DM not following bloodwork due to comfort care (4) Elevated troponin Comment: Suspect demand ischemia in the setting of sepsis. Asymptomatic. (5) History of CVA (cerebrovascular accident) Comment: L hemiparesis. Pt spends almost all her day in bed in [facility]. (6) Hypernatremia Comment: - Secondary to dehydration. - Resolved (7) Swallowing difficulty Comment: due to comfort care , pt's HCP agreed to cont modified diet for comfort , she is aware of the risk of potential aspiration. Pt was placed on pureed solids and nectar thick liquids on 08/25/19 (8) Heel ulcer due to DM Comment: MRI negative for osteo, but dopplers positive for significant b/l PAD- due to comfort care, no further intervention will be made Ortho consult appreciated Wound care ongoing (9) Diabetes Comment: insulin stopped due to comfort care (10) SVT (supraventricular tachycardia) Comment: noted at admission-suspect due to sepsis and dehydration Resolved (11) DVT prophylaxis Comment: none, comfort care. Status and Disposition: inpatient
[2019-08-26] MEDS ORDERED: Morphine ORAL CONCENTRATE* 5 MG/0.25 ML ORAL.SYRIN SL PRN (09:35)
[2019-08-26] MEDS: Collagenase 250 UNITS/GM OINT* 1 APPLIC OINT TOPICAL SCH (14:29)
--- NOTE | 2019-08-26 15:20 | PN ---
Progress Note - Progress Note Date of Service: 08/26/19 SOAP: Subjective: Pt seen at bedside. She is comfort care per her healthcare proxy. She is unable to answer my questions. Objective: []NAD, laying in bed RLE: Right heel with 4 cm unstageable ulcer. I could not appreciate any odor today, there is no discharge. Minimal surrounding erythema with no proximal streaking. Tenderness to palpation of the heel. Vital Signs Temp 97.4 F 08/26/19 14:09 Pulse 80 08/26/19 14:09 Resp 18 08/26/19 14:13 BP 153/72 08/26/19 14:09 Pulse Ox 100 08/26/19 14:09 Intake & Output 08/25/19 08/26/19 08/26/19 18:59 06:59 18:59 Intake Total 360 Output Total 700 700 975 Balance -340 700 975 Intake: Oral 360 Output: Frazier 700 700 975 Other: Date of Last Bowel 08/25/19 Movement # Bowel Movements 1 Estimated Stool Amount Large Assessment: []R heel ulcer, no osteo or abscess Plan: []Cont wound care, abx vasc consult needed ortho will continue to follow. If any discharge please culture
[2019-08-26] MEDS: cefTRIAXone(*) 1 GM in NS 0.9% 50 ML* 50 ML IVPB SCH (17:07)
--- NOTE | 2019-08-26 22:02 | DS ---
CC: Dr. Neo Erazo; Dr. Sonia Vallecillo; Dr. Barajas * DISCHARGE SUMMARY: DATE OF ADMISSION: 08/23/19 DATE OF ANTICIPATED DISCHARGE: 08/27/19 PRIMARY CARE PROVIDER: Dr. Neo Erazo from [facility]. DISCHARGE DIAGNOSES: 1. Sepsis, likely due to infected chronic right heel wound. 2. Acute kidney injury due to above. 3. Severe hypernatremia due to dehydration. 4. Dysphagia. 5. Elevated troponin, likely due to demand ischemia. 6. The patient is comfort care and do not re-hospitalize. SECONDARY DIAGNOSES: 1. History of ischemic cerebrovascular accident with residual left-sided weakness, dysarthria, and dysphagia. 2. History of diabetes type 2, insulin dependent. 3. Hypertension. 4. Dyslipidemia. 5. Gastroesophageal reflux disease. 6. Further undefined personality disorder. MEDICATIONS AT DISCHARGE: Include: 1. Acetaminophen 1000 mg daily p.r.n. 2. Aspirin 325 mg daily. 3. Santyl ointment apply to right heel on a daily basis, cover with gauze, change daily. 4. Senna 2 tablets p.o. b.i.d. p.r.n. 5. Ultram 50 mg b.i.d. p.r.n. 6. Cefdinir 300 mg p.o. b.i.d. for 5 days total, that is the liquid suspension. 7. Morphine oral concentrate 5 mg every 2 hours p.r.n. pain or discomfort. LABORATORY DATA AND STUDIES PERFORMED DURING THE HOSPITAL STAY: Included on , sodium of 141, potassium 3.4, chloride 111, carbon dioxide 21, BUN 25, creatinine 0.81. CBC: White blood cell count of 10.0, hemoglobin of 10.4, hematocrit of 32, and platelets of 141. Urinalysis showed +3 esterase, +3 wbc's, +3 red blood cells, yeast present, bacteria present. Microbiology tests showed urine cultures negative, blood cultures negative, MRSA nasal swab negative. Right foot MRI obtained on 08/24/19, impression: "Medial heel soft tissue ulcer without evidence of loculated soft tissue plane abscess or adjacent osteomyelitis of the calcaneal tuberosity." Abdomen and bladder ultrasound obtained on 08/23/19, impression: "Mild renal parenchymal disease. Possible nonobstructing distal left ureteral calculus measuring [address] KUB. Malpositioned Frazier catheter in the urethra. Left nephrolithiasis." Please note that the patient's urinary catheter was repositioned at that point. Arterial Dopplers of bilateral lower extremities obtained on 08/23/19, impression: "Technically limited study. There is minimal arterial flow noted of the right dorsalis pedis artery. No flow is noted in the right posterior tibial or the left posterior tibial or dorsalis pedis arteries. This is consistent with severe bilateral peripheral arterial occlusive disease." CONSULTATIONS DURING THE HOSPITAL STAY: Included: 1. Dr. Trevor Barajas and MEHDI Mays, from Orthopedic Surgery. 2. Dr. Vallecillo, Palliative Services. HOSPITALIZATION COURSE: Reanna Cunningham is a 68-year-old female who has had left - sided hemiparesis for the past 20 years, who has dysarthria and dysphagia due to that and she is on modified nectar thick liquids and pureed diet. The patient presented to the hospital with concerns of unresponsiveness from her assisted at [facility]. She is at baseline bedbound. She has had right heel ulcer for quite some time. She was noted to have sepsis that initially was thought to be likely due to UTI, but later on her urine cultures turned out to be negative and the presumption was that the sepsis was due to right heel infection of the chronic wound. She had marked hypernatremia with a sodium level of 158. She was markedly dehydrated and basically obtunded. She was do not resuscitate/do not intubate and no feeding tube in place. Nevertheless, she was placed in the intensive care unit for further evaluation and treatment. She was treated aggressively with multiple intravenous fluid boluses and dextrose in water solution. By 08/25/19, her sodium was noted to be 141. Her blood cultures apparently did not grow anything. Orthopedic service saw the patient in evaluation and requested ABIs to be obtained. ABIs were consistent with severe peripheral arterial disease, but MRI showed no evidence of osteomyelitis. The patient was initially treated with ceftriaxone and vancomycin and later on switched to ceftriaxone only. She started responding more and being somewhat minimally verbal. Nevertheless, over the course of several days of her hospital stay, she was unable to be awake enough and her dysphagia was severe enough that she could not be allowed to swallow safely. Due to that, I discussed the patient's status with Lay Guillermo, who is the patient's healthcare proxy, who incidentally so was also hospitalized at our facility at the same time. Lay agreed that the patient would not wish to have a PEG tube and she definitely wanted to be do not resuscitate. Furthermore, when the patient was unable to swallow, I asked Dr. Sonia Vallecillo to see the patient in consultation. The patient's healthcare proxy also decided for the patient to be made comfort care on 08/25/19. At this point, her insulin and most of her medications were stopped apart from the medications to provide pain control. We continued the patient's antibiotics in the form of ceftriaxone and we are planning to continue cefdinir for another 5 days if she is able to tolerate p.o. suspension. Dr. Sonia Vallecillo assisted with confirming the patient's healthcare proxy the patient's MOLST wishes. The patient was confirmed to be do not resuscitate/do not intubate as well as comfort care as well as do not re-hospitalize with limited use of antibiotics and no PEG tube. The patient was noted to be likely good hospice candidate. Over the next 24 hours, the patient did reasonably well and she started having low p.o. intake. Ms. Guillermo was aware that the patient is at high risk of aspiration, but despite that due to comfort measures only, the patient was allowed to eat her modified diet. The patient is planned to go back to [facility] on 08/27/19 in the morning. She is to continue her cefdinir suspension if tolerated. She is continued to be do not resuscitate, do not re-hospitalize and do not intubate. We advised for the patient to be referred to hospice at arrival to the assisted. For physical exam at the time of this dictation, please see daily progress notes. Please note that this is a short summary of the patient's long and complicated hospitalization. Please refer to further medical records for details. TIME SPENT: Approximately 45 minutes was spent on the patient's discharge. [id number]/[facility] #: [id number] DEVON
[2019-08-27 08:44] VITALS: BP 177/70
[2019-08-27] MEDS: Collagenase 250 UNITS/GM OINT* 1 APPLIC OINT TOPICAL SCH (09:25)
== END 2019-08-27 16:27 | DRG 872 ==
LOC: ED 08:43 → ICU 11:42 → MED 08-26 08:32 → ICU 08-26 12:48
PROVIDERS: ADMIT Internal Medicine; ATTEND Internal Medicine
DX: A41.9 Sepsis, unspecified organism (principal); N17.9 Acute kidney failure, unspecified; E87.0 Hyperosmolality and hypernatremia; I47.1 Supraventricular tachycardia; I24.8 Other forms of acute ischemic heart disease; I69.354 Hemiplegia and hemiparesis following cerebral infarction affecting left non-dominant side; N20.2 Calculus of kidney with calculus of ureter; E11.621 Type 2 diabetes mellitus with foot ulcer; E11.22 Type 2 diabetes mellitus with diabetic chronic kidney disease; E87.8 Other disorders of electrolyte and fluid balance, not elsewhere classified; E11.51 Type 2 diabetes mellitus with diabetic peripheral angiopathy without gangrene; Z66 Do not resuscitate; E78.5 Hyperlipidemia, unspecified; K21.9 Gastro-esophageal reflux disease without esophagitis; I12.9 Hypertensive chronic kidney disease with stage 1 through stage 4 chronic kidney disease, or unspecified chronic kidney disease; E86.0 Dehydration; E11.65 Type 2 diabetes mellitus with hyperglycemia; R74.8 Abnormal levels of other serum enzymes; I73.9 Peripheral vascular disease, unspecified; F60.9 Personality disorder, unspecified; R13.10 Dysphagia, unspecified; Z51.5 Encounter for palliative care; R32 Unspecified urinary incontinence; R15.9 Full incontinence of feces; I69.322 Dysarthria following cerebral infarction; Z74.01 Bed confinement status; Z79.1 Long term (current) use of non-steroidal anti-inflammatories (NSAID); Z79.82 Long term (current) use of aspirin; Z79.4 Long term (current) use of insulin; Z79.899 Other long term (current) drug therapy; Z88.5 Allergy status to narcotic agent; Z88.8 Allergy status to other drugs, medicaments and biological substances
CPT/HCPCS: 36415; 36600; 70250; 71045; 74018; 76770; 80048; 80053; 80202; 81003; 81015; 82550; 82803; 83605; 83735; 84484; 85025; 85610; 85652; 85730; 86140; 87040; 87086; 87641; 93005; 93922; 96365; 99285; A9270-GY; J0696; J1644; J2270; J2543; J3370; J3475; J3480; J3490